=== PATIENT | female | born 1940 | race Caucasian/White ===

== ENCOUNTER 2023-01-08 13:54 | Inpatient (IN) | payer MEDICARE ==
--- NOTE | 2023-01-08 14:05 | ED ---
Fall HPI - General Source: family, RN notes reviewed Mode of arrival: wheelchair Limitations: no limitations - History of Present Illness MD Complaint: fall <Ce Justice - Last Filed: 01/08/23 14:02> <Dashawn Li - Last Filed: 01/08/23 18:45> - General Chief Complaint: Fall Stated Complaint: Fall,no Thinners/ GI Bleed Time Seen by Provider: 01/08/23 14:04 - History of Present Illness Initial Comments: This is an 82 year old female who presents to the emergency department for a fall. She fell yesterday and injured her right great toe. Her friend states that she has since been catching it on things. Additionally, she had diarrhea yesterday which may have had blood in it. She has also had increasing confusion and weakness over the last couple of weeks. Patient's friend provides all information, patient states that she has no idea why she is here. (Ce Justice) - Related Data Allergies Allergy/AdvReac Type Severity Reaction Status Date / Time codeine Allergy Rash/Hives Verified 01/08/23 14:07 Review of Systems ROS Other: All systems not noted in ROS Statement are negative. <Ce Justice - Last Filed: 01/08/23 14:02> ROS Other: All systems not noted in ROS Statement are negative. <Dashawn Li - Last Filed: 01/08/23 18:45> ROS Statement: Those systems with pertinent positive or pertinent negative responses have been documented in the HPI. General Exam <Ce Justice - Last Filed: 01/08/23 14:02> General appearance: alert, in no apparent distress Head exam: Present: atraumatic, normocephalic Eye exam: Present: normal appearance, PERRL Neck exam: Present: normal inspection. Absent: tenderness, meningismus Respiratory exam: Present: normal lung sounds bilaterally. Absent: respiratory distress, wheezes Cardiovascular Exam: Present: regular rate, normal rhythm GI/Abdominal exam: Present: soft. Absent: distended, tenderness, guarding Extremities exam: Present: other (Tenderness in the right calf and foot. Decreased range of motion at the ankle. There is no distal pulses present on the right. She has a 2+ femoral pulses.) Neurological exam: Present: alert. Absent: motor sensory deficit Skin exam: Present: warm, dry, intact <GurwinderkalyantaliaDashawn N - Last Filed: 01/08/23 18:45> - General Exam Comments Initial Comments: Visual Physical Exam Vital signs reviewed General: Well-appearing, nontoxic, no acute distress. Head: Normocephalic, atraumatic Eyes: PERRLA, EOMI ENT: Airway patent Chest: Nonlabored breathing Skin: No visual rash, normal skin tone Neuro: Alert and oriented 3 Musculoskeletal: No gross abnormalities I performed the QuickNote portion of this chart. Signed Ce Justice PA-C. (Ce Justice) Course Vital Signs 01/08/23 01/08/23 01/08/23 14:03 17:26 17:40 Temperature 98.6 F Pulse Rate 110 H 94 87 Respiratory 20 18 18 Rate Blood Pressure 100/59 137/76 137/76 O2 Sat by Pulse 99 98 99 Oximetry 01/08/23 01/08/23 18:00 18:10 Temperature Pulse Rate 89 87 Respiratory 19 Rate Blood Pressure 149/80 159/70 O2 Sat by Pulse 99 Oximetry Medical Decision Making - Lab Data Result diagrams: 01/08/23 17:33 01/08/23 17:33 <GurwinderstevenDashawn N - Last Filed: 01/08/23 18:45> - Medical Decision Making Was pt. sent in by a medical professional or institution (EDUARD Blake, NIGHT AUDITOR, urgent care, hospital, or alf...) When possible be specific @ -No Did you speak to anyone other than the patient for history (EMS, parent, family, police, friend...)? What history was obtained from this source @ -Patient's friend who is at bedside Did you review nursing and triage notes (agree or disagree)? Why? @ -I reviewed and agree with nursing and triage notes Were old charts reviewed (outside hosp., previous admission, EMS record, old EKG, old radiological studies, urgent care reports/EKG's, alf records)? Report findings @ -No old charts were reviewed Differential Diagnosis (chest pain, altered mental status, abdominal pain women, abdominal pain men, vaginal bleeding, weakness, fever, dyspnea, syncope, headache, dizziness, GI bleed, back pain, seizure, CVA, palpatations, mental health, musculoskeletal)? @ -[Differential Chest Pain: Stable Angina, Unstable Angina, STEMI, NSTEMI Aortic Dissection, Pneumothorax, Musculoskeletal, Esophageal Spasm GERD, Cholecystitis, Pancreatitis, Zoster, this is not meant to be an all-inclusive list. EKG interpreted by me (3pts min.). @ Sinus rhythm ST segment elevation in the anterior leads with reciprocal ST segment depression inferior. Ventricular rate of 87, MT interval 185, QRS duration 89, QTC 391. X-rays interpreted by me (1pt min.). @ -[Chest x-ray showing no acute findings, hyperinflation CT interpreted by me (1pt min.). @ CT brain negative for intracranial hemorrhage or mass effect U/S interpreted by me (1pt. min.). @ -None done What testing was considered but not performed or refused? (CT, X-rays, U/S, labs)? Why? @ -None What meds were considered but not given or refused? Why? @ -None Did you discuss the management of the patient with other professionals (professionals i.e. , PA, NIGHT AUDITOR, lab, RT, psych nurse, clinical social worker, first grade teacher, teacher, commanding officer garage, case operator)? Give summary @ Case discussed with Dr. Ruffin at the time the EKG was obtained 1746. This ramos s meet ST segment elevation in the [facility] was activated. Case discussed with Dr. Guerrero who will admit Was smoking cessation discussed for >3mins.? @ -No Was critical care preformed (if so, how long)? @ -Yes, 35 minutes Were there social determinants of health that impacted care today? How? (Homelessness, low income, unemployed, alcoholism, drug addiction, transportation, low edu. Level, literacy, decrease access to med. care, custodial, rehab)? @ -No Was there de-escalation of care discussed even if they declined (Discuss DNR or withdrawal of care, Hospice)? DNR status @ -No What co-morbidities impacted this encounter? (DM, HTN, Smoking, COPD, CAD, Cancer, CVA, ARF, Chemo, Hep., AIDS, mental health diagnosis, sleep apnea, morbid obesity)? @ -[Dementia, peripheral vascular disease Was patient admitted / discharged? Hospital course, mention meds given and route, prescriptions, significant lab abnormalities, going to OR and other pertinent info. @ -82-year-old female presented initially with a fall and complaining of diarrhea which occurred yesterday as well as right foot pain. Patient has stable vitals and was in the waiting room for an extended period time proximally 4 hours. Upon presenting to a room and IV was established and EKG was obtained in this patient without chest pain without dyspnea without vomiting. EKG shows ST segment elevation consistent with acute CT. I discussed case with Dr. Ruffin and the [facility] was activated. Additionally the patient has a cold right lower extremity with complaints of right foot pain. There is delayed cap refill and no palpable pulses distally. Patient had a fall yesterday therefore head CT was performed which is negative for intracranial hemorrhage. Aspirin was administered and the patient was taken immediately to the [facility] for both coronary angiogram as well as peripheral angiogram. Undiagnosed new problem with uncertain prognosis? @ -No Drug Therapy requiring intensive monitoring for toxicity (Heparin, Nitro, Insulin, Cardizem)? @ -No Were any procedures done? @ -No Diagnosis/symptom? @ -[STEMI, ischemic leg Acute, or Chronic, or Acute on Chronic? @ -Acute Uncomplicated (without systemic symptoms) or Complicated (systemic symptoms)? @ Extremely complicated Side effects of treatment? @ -No Exacerbation, Progression, or Severe Exacerbation? @ -No Poses a threat to life or bodily function? How? (Chest pain, USA, CT, pneumonia, PE, COPD, DKA, ARF, appy, cholecystitis, CVA, Diverticulitis, Homicidal, Suicidal, threat to staff... and all critical care pts) @ -[Yes, ACS, ischemic limb (Dashawn Li) - Lab Data Lab Results 01/08/23 01/08/23 01/08/23 Range/Units 17:33 17:33 17:33 WBC 17.3 H (3.8-10.6) k/uL RBC 3.52 L (3.80-5.40) m/uL Hgb 11.2 L (11.4-16.0) gm/dL Hct 33.5 L (34.0-46.0) % MCV 95.2 (80.0-100.0) fL MCH 31.9 (25.0-35.0) pg MCHC 33.5 (31.0-37.0) g/dL RDW 13.8 (11.5-15.5) % Plt Count 476 H (150-450) k/uL MPV 8.9 Neutrophils % 91 % Lymphocytes % 5 % Monocytes % 2 % Eosinophils % 1 % Basophils % 0 % Neutrophils # 15.8 H (1.3-7.7) k/uL Lymphocytes # 0.9 L (1.0-4.8) k/uL Monocytes # 0.4 (0-1.0) k/uL Eosinophils # 0.1 (0-0.7) k/uL Basophils # 0.0 (0-0.2) k/uL PT 10.9 (9.0-12.0) sec INR 1.0 (<1.2) APTT 26.1 (22.0-30.0) sec Sodium 136 L (137-145) mmol/L Potassium 4.8 (3.5-5.1) mmol/L Chloride 100 (98-107) mmol/L Carbon Dioxide 20 L (22-30) mmol/L Anion Gap 16 mmol/L BUN 68 H (7-17) mg/dL Creatinine 1.21 H (0.52-1.04) mg/dL Est GFR (CKD-EPI)AfAm 48 (>60 ml/min/1.73 sqM) Est GFR (CKD-EPI)NonAf 41 (>60 ml/min/1.73 sqM) Glucose 121 H (74-99) mg/dL Plasma Lactic Acid Zen[place] (0.7-2.0) mmol/L Calcium 9.6 (8.4-10.2) mg/dL Total Bilirubin 0.6 (0.2-1.3) mg/dL AST 359 H (14-36) U/L ALT 165 H (4-34) U/L Alkaline Phosphatase 159 H (38-126) U/L Troponin I (0.000-0.034) ng/mL Total Protein 7.0 (6.3-8.2) g/dL Albumin 3.6 (3.5-5.0) g/dL 01/08/23 01/08/23 Range/Units 17:33 17:33 WBC (3.8-10.6) k/uL RBC (3.80-5.40) m/uL Hgb (11.4-16.0) gm/dL Hct (34.0-46.0) % MCV (80.0-100.0) fL MCH (25.0-35.0) pg MCHC (31.0-37.0) g/dL RDW (11.5-15.5) % Plt Count (150-450) k/uL MPV Neutrophils % % Lymphocytes % % Monocytes % % Eosinophils % % Basophils % % Neutrophils # (1.3-7.7) k/uL Lymphocytes # (1.0-4.8) k/uL Monocytes # (0-1.0) k/uL Eosinophils # (0-0.7) k/uL Basophils # (0-0.2) k/uL PT (9.0-12.0) sec INR (<1.2) APTT (22.0-30.0) sec Sodium (137-145) mmol/L Potassium (3.5-5.1) mmol/L Chloride (98-107) mmol/L Carbon Dioxide (22-30) mmol/L Anion Gap mmol/L BUN (7-17) mg/dL Creatinine (0.52-1.04) mg/dL Est GFR (CKD-EPI)AfAm (>60 ml/min/1.73 sqM) Est GFR (CKD-EPI)NonAf (>60 ml/min/1.73 sqM) Glucose (74-99) mg/dL Plasma Lactic Acid Zen[place] 1.3 (0.7-2.0) mmol/L Calcium (8.4-10.2) mg/dL Total Bilirubin (0.2-1.3) mg/dL AST (14-36) U/L ALT (4-34) U/L Alkaline Phosphatase (38-126) U/L Troponin I 0.821 H* (0.000-0.034) ng/mL Total Protein (6.3-8.2) g/dL Albumin (3.5-5.0) g/dL Critical Care Time Critical Care Time: Yes Total Critical Care Time: 35 <Dashawn Li - Last Filed: 01/08/23 18:45> Disposition <Ce Justice - Last Filed: 01/08/23 14:02> Is patient prescribed a controlled substance at d/c from ED?: No Time of Disposition: 18:20 <Dashawn Li - Last Filed: 01/08/23 18:45> Clinical Impression: STEMI (ST elevation myocardial infarction), Ischemic leg Disposition: ADMITTED IP TO THIS HOSP Condition: Serious
--- NOTE | 2023-01-08 14:52 | XR ---
Right great toe HISTORY: Pain findings trauma COMPARISON: None TECHNIQUE: 3 views the right big toe were obtained. FINDINGS: There is no fracture, dislocation, intraosseous, intra-articular or soft tissue abnormality. There is mild to moderate osteopenia. IMPRESSION: No evidence of acute trauma.
[2023-01-08] MEDS ORDERED: SODIUM CHLORIDE 0.9% 500 ML 500 ML IV STA (17:28)
[2023-01-08] MEDS ORDERED: ASPIRIN 325 MG TAB PO STA (17:53)
[2023-01-08 18:03] LABS: Basophils % (A) 0 %; Eosinophils # (A) 0.1 k/uL (0-0.7); Eosinophils % (A) 1 %; HCT 33.5 % (34.0-46.0); HGB 11.2 gm/dL (11.4-16.0); Lymphocytes # (A) 0.9 k/uL (1.0-4.8); Lymphocytes % (A) 5 %; MCH 31.9 pg (25.0-35.0); MCHC 33.5 g/dL (31.0-37.0); MCV 95.2 fL (80.0-100.0); Mean Platelet Volume 8.9; Monocytes # (A) 0.4 k/uL (0-1.0); Monocytes % (A) 2 %; Neutrophils # (A) 15.8 k/uL (1.3-7.7); Neutrophils % (A) 91 %; Platelet Count 476 k/uL (150-450); RBC 3.52 m/uL (3.80-5.40); RDW 13.8 % (11.5-15.5); WBC 17.3 k/uL (3.8-10.6)
[2023-01-08 18:05] LABS: Partial Thromboplastin Time 26.1 sec (22.0-30.0); Prothrombin Time 10.9 sec (9.0-12.0)
[2023-01-08] MEDS ORDERED: NALOXONE 0.4 MG/ML 1 ML VIAL IV PRN (18:05)
--- NOTE | 2023-01-08 18:06 | XR ---
EXAMINATION TYPE: XR chest 1V portable DATE OF EXAM: 01/08/2023 6:00 PM CLINICAL INDICATION:Female, 82 years old with history of Pain; COMPARISON: Chest radiographs from TECHNIQUE: XR chest 1V portable Frontal view of the chest. FINDINGS: Lungs/Pleura: There is flattening of the diaphragm with increased lucency of the lungs. No evidence o f pneumothorax, pleural effusion or focal consolidation. Pulmonary vascularity: Unremarkable. Heart/mediastinum: Cardiomediastinal silhouette is unremarkable. Musculoskeletal: No acute osseous pathology. IMPRESSION: 1. No acute cardiopulmonary disease process. 2. COPD changes.
[2023-01-08 18:07] LABS: ALT 165 U/L (4-34); AST 359 U/L (14-36); African American GFR (CKD) 48 (>60 ml/min/1.73 sqM); Albumin 3.6 g/dL (3.5-5.0); Alkaline Phosphatase 159 U/L (38-126); Anion Gap 16 mmol/L; Blood Urea Nitrogen 68 mg/dL (7-17); Calcium 9.6 mg/dL (8.4-10.2); Carbon Dioxide 20 mmol/L (22-30); Chloride 100 mmol/L (98-107); Glucose 121 mg/dL (74-99); Non-African American GFR(CKD) 41 (>60 ml/min/1.73 sqM); Potassium 4.8 mmol/L (3.5-5.1); Sodium 136 mmol/L (137-145); Total Bilirubin 0.6 mg/dL (0.2-1.3)
[2023-01-08] MEDS: SODIUM CHLORIDE 0.9% 1,000 ML IV SCH (18:07)
--- NOTE | 2023-01-08 18:22 | CT ---
EXAMINATION TYPE: CT brain cspine wo con CT DLP: 1254.9 mGycm, Automated exposure control for dose reduction was used. DATE OF EXAM: 01/08/2023 6:13 PM COMPARISON: None. CLINICAL INDICATION:Female, 82 years old with history of falls; Pt fall yesterday, increased confusio n over last 3 weeks. TECHNIQUE: Brain: Multiple axial CT images of the brain were obtained without IV contrast. Cspine: Axial CT images from the skull base to the inferior aspect of T2 we obtained without intraven ous contrast. Coronal and sagittal reformatted images were also reviewed. FINDINGS: Brain: Extra-axial spaces: No abnormal extra-axial fluid collections. Ventricular system: Within normal limits Cerebral parenchyma: No acute intraparenchymal hemorrhage or mass effect. The [place]-white junction is well differentiated. Cerebellum: Unremarkable. Mass effect: No evidence of midline shift. Intracranial vasculature: unremarkable Soft tissues: Normal. Calvarium/osseous structures: No depressed skull fracture. Paranasal sinuses and mastoid air cells: Clear. Visualized orbits: Bilateral aphakia Cervical spine: Fracture: None. Osseous structures: Multilevel degenerative disc disease changes with endplate spurring and disc oste ophyte complex's. Vertebral alignment: Within normal limits. Spinal canal/Neural Foramina: No evidence of significant spinal canal narrowing. No evidence for sign ificant neural foraminal stenosis. Neck soft tissues: Prevertebral soft tissues are within normal limits. Other: The airway is patent. The lung apices are clear. IMPRESSION: 1. No acute intracranial process. 2. No evidence of cervical spine fracture. 3. Mild multilevel degenerative disc disease.
[2023-01-08] MEDS ORDERED: LIDOCAINE 1% INJ 10MG/ML (20 ML MDV) ONE ×2 (18:26→18:47)
[2023-01-08] MEDS ORDERED: IV FLUID CONTINUATION 1,000 ML IV ONE (18:33)
[2023-01-08] MEDS ORDERED: fentaNYL (PF) 50 MCG/ML 2 ML AMP IVP ONE ×2 (18:35→18:50)
[2023-01-08] MEDS ORDERED: LIDOCAINE 1% INJ 10MG/ML (20 ML MDV) SQ ONE ×2 (18:36→18:50)
[2023-01-08] MEDS ORDERED: fentaNYL (PF) 50 MCG/ML 2 ML AMP ONE (18:37)
[2023-01-08] MEDS ORDERED: VERAPAMIL SYRINGE (5 MG/10 ML) INTRAARTER ONE (18:53)
[2023-01-08] MEDS ORDERED: VERAPAMIL 2.5 MG/ML 2 ML AMP ONE (18:53)
[2023-01-08] MEDS ORDERED: IOPAMIDOL-370 100ML BTL INJ ONE (19:03)
--- NOTE | 2023-01-08 19:19 | P.CRDCN ---
History of Present Illness Consult date: 01/08/23 Chief complaint: Change in mental status/possible syncope History of present illness: This is an 82-year-old female patient with a past medical history significant for history of lower extremities PAD as well as hypertension and dyslipidemia. The patient is somewhat poor historian and she does have slight change in mental status and disorientation. We consulted to see the patient for further evaluation off abnormal EKG showing an anterior ST elevation myocardial infarction and the ST segment changes are massive. The patient presented to the emergency department after she fell with a questionable syncope. She injured her right great toe. She was brought by her boyfriend to the emergency department where workup was performed including computed tomography scan of the brain which showed no acute abnormalities. Subsequently she underwent an EKG which showed significant ST segment elevation anteriorly concerning for STEMI. Also the patient was found to have cold right foot. We don't know the duration of her foot coolness. The patient was taken emergently to the cardiac label drier where she underwent an angiogram from the right radial approach and that showed mild nonobstructive coronary artery disease. I did not performed left heart catheterization on her because I was concerned about any thrombus in the LV could be responsible for her cold foods as well as abnormal EKG with possible embolization which dissolved. Initially I accessed the left common femoral artery and its appeared that the patient underwent in the past aorta bifemoral bypass. The angiogram revealed a patent left common femoral artery but it seems that the wire was in the bypass to the left common femoral artery. She noted to have stenting either in her [place] left iliac arteries or in the left iliac's vein. It's hard to tell at this point. The procedure was performed from the right radial approach and the patient tolerated the procedure very well. The cath revealed only mild nonobstructive coronary artery disease. The patient will be transferred to the intensive care unit. I'm going to obtain CTA of the chest and abdomen and lower extremities just to rule out any evidence off dissection and also to assess the lower extremities arterial system. Vascular surgical consult we will be also obtained. Beside that the patient underwent a blood work showed stable hemoglobin was troponin is a slightly elevated and abnormal renal function and normal electrolytes. The liver function tests are elevated. Please note that the patient is alcoholic The examination is remarkable for stable vital signs beside elevated blood pressure consistent with a stage II hypertension and also distant heart sounds with clear breathing sounds bilaterally. Assessment Abnormal EKG concerning for ST elevation myocardial infarction. Mild nonobstructive coronary artery disease Cold right foot PAD with prior revascularization Change in mental status Significant history of alcohol abuse Plan Heart catheterization was performed and showed mild CAD only Performing CTA of the chest and abdomen and lower extremities to rule out dissection and assess the vascular structure of the lower extremities in the light of cold right foot Transferred to the intensive care unit Obtain an echocardiogram was Doppler Obtain a vascular surgical consult Follow-up with the patient Past Medical History Past Medical History: Cancer, Dementia, Hypertension Past Surgical History: No Surgical Hx Reported Medications and Allergies Home Medications Medication Instructions Recorded Confirmed Type Acetaminophen Tab [Tylenol Tab] 500 mg PO Q6H PRN 01/08/23 01/08/23 History lisinopriL 40 mg PO DAILY 01/08/23 01/08/23 History Allergies Allergy/AdvReac Type Severity Reaction Status Date / Time codeine Allergy Itching Verified 01/08/23 18:53 Physical Exam Vitals: Vital Signs Temp Pulse Resp BP Pulse Ox 01/08/23 18:20 99 18 159/70 01/08/23 18:10 87 159/70 99 01/08/23 18:00 89 19 149/80 01/08/23 17:40 87 18 137/76 99 01/08/23 17:26 94 18 137/76 98 01/08/23 14:03 98.6 F 110 H 20 100/59 99 Intake and Output 01/08/23 01/08/23 01/08/23 06:59 14:59 22:59 Intake Total 150 Balance 150 Intake: IV 150 Other: Weight 56.699 kg Results 01/08/23 17:33 01/08/23 17:33 Cardiac Enzymes 01/08/23 01/08/23 Range/Units 17:33 17:33 AST 359 H (14-36) U/L Troponin I 0.821 H* (0.000-0.034) ng/mL Coagulation 01/08/23 Range/Units 17:33 PT 10.9 (9.0-12.0) sec APTT 26.1 (22.0-30.0) sec CBC 01/08/23 Range/Units 17:33 WBC 17.3 H (3.8-10.6) k/uL RBC 3.52 L (3.80-5.40) m/uL Hgb 11.2 L (11.4-16.0) gm/dL Hct 33.5 L (34.0-46.0) % Plt Count 476 H (150-450) k/uL Comprehensive Metabolic Panel 01/08/23 Range/Units 17:33 Sodium 136 L (137-145) mmol/L Potassium 4.8 (3.5-5.1) mmol/L Chloride 100 (98-107) mmol/L Carbon Dioxide 20 L (22-30) mmol/L BUN 68 H (7-17) mg/dL Creatinine 1.21 H (0.52-1.04) mg/dL Glucose 121 H (74-99) mg/dL Calcium 9.6 (8.4-10.2) mg/dL AST 359 H (14-36) U/L ALT 165 H (4-34) U/L Alkaline Phosphatase 159 H (38-126) U/L Total Protein 7.0 (6.3-8.2) g/dL Albumin 3.6 (3.5-5.0) g/dL Current Medications Generic Name Dose Route Start Last Admin Trade Name Freq PRN Reason Stop Dose Admin Sodium Chloride 1,000 mls @ 75 mls/hr 01/08/23 18:00 01/08/23 18:07 Saline 0.9% IV 75 mls/hr .[id number] YAMIL Administration Naloxone HCl 0.2 mg 01/08/23 18:05 Naloxone 0.4 Mg/Ml 1 Ml Vial IV Q2M PRN Opioid Reversal Intake and Output 01/08/23 01/08/23 01/08/23 06:59 14:59 22:59 Intake Total 150 Balance 150 Intake: IV 150 Other: Weight 56.699 kg Patient Weight 01/09/23 06:59 Weight 56.699 kg 01/08/23 17:33 01/08/23 17:33
--- NOTE | 2023-01-08 19:28 | P.PCN ---
Date of Procedure: 01/08/23 Operative Findings: CARDIAC CATHETERIZATION PERFORMING PHYSICIAN: Terry Ruffin MD, RPVI PROCEDURE PERFORMED: 1. Selective right and left coronary angiogram 2. Left common femoral artery angiogram 3. Ultrasound-guided access of the right radial artery INDICATION: Abnormal EKG concerning for ST elevation myocardial infarction COMPLICATION: None APPROACH: Right radial artery LEVEL OF SEDATION: Moderate with a sedation length of 30 minutes PROCEDURE DESCRIPTION: After obtaining an informed consent, the patient was brought to cardiac mill laborer. Initially I attempted accessing the left common femoral artery but the wire would not pass the distal aorta. For that reason I aborted the left femoral approach and I decided to go from the right radial artery. Local anesthesia was performed using lidocaine subcutaneously. The right radial artery was cannulated using Seldinger technique, the guidewire passed easily, following that we advanced a 5-Kazakh sheath dilator assembly, the wire and dilator were removed and sheath was flushed. Following that, 2 mg of verapamil along with 5000 unit heparin were given. Selective right and left coronary angiogram using a 6-Kazakh JR4 and JL 3.5 catheters. . The procedure was completed there was no complication. SELECTIVE CORONARY ANGIOGRAM: The right coronary artery: Large-caliber vessel and a dominant vessel. The RCA is calcified was mild disease only. Dad disease is in the midportion. The RCA bifurcates into PDA and PLV branches. The PDA branch has mild disease only and the PLV branch appears to be angiographically normal. Left main: It is angiographically normal. Bifurcates into an LCx and LAD The left circumflex: The ostial LCx has mild disease only. The proximal LCx is angiographically normal and gives rise into an OM1 which appeared to be angiographically normal. The mid LCx is angiographically normal as well and gives rises into an OM 2 which seems to be normal. The LCx distally appears to be normal. The left anterior descending artery: The proximal LAD appeared to be angiographically normal. Gives rises into a diagonal branch which has mild disease only. The mid and distal LAD appeared to be angiographically normal CONCLUSION: 1. Mild nonobstructive coronary artery disease POSTPROCEDURE MANAGEMENT: Medical treatment
[2023-01-08 19:36] LABS: Glucose,Whole Blood 82 mg/dL (70-110)
--- NOTE | 2023-01-08 21:32 | CT ---
EXAMINATION TYPE: CT angio tho/abd W Run Off DATE OF EXAM: 01/08/2023 COMPARISON: None. HISTORY: Rule out dissection. Pt was called a stemi earlier, hence why contrast in system. CT DLP: 1679.6 mGycm. Automated Exposure Control for Dose Reduction was Utilized. CONTRAST: CTA scan of the thorax, abdomen and pelvis with bilateral lower extremity runoff is performed without and with IV Contrast, patient injected with 80 mL of Isovue 370. Three-D reconstructed images are cr eated on a independent workstation and reviewed. FINDINGS: Vascular: Noncontrast images show no suspicious hyperdense material to suggest intramural hematoma. M ild peripheral calcified plaque in the aortic arch. More moderate peripheral plaque in the descending thoracic aorta. There is more severe predominantly calcified but mixed plaque in the abdominal aorta . Calcified plaque is noted to lower sensitivity for evaluation for grading degree of stenosis. Sever e calcified plaque at origin of the celiac artery with likely significant stenosis. Severe calcified plaque and then complete occlusion of the SMA is noted. Patent bilateral renal arteries. Significant stenosis in the infrarenal abdominal aorta. Occluded RAFFY is noted. No linear hypodensity to suggest d issection. There are bypass grafts which are occluded in the bilateral pelvis. There is significant stenosis in the right common iliac artery due to noncalcified plaque axial image 35. There is patent stent in the left proximal common iliac artery. No significant stenosis in the pelvis. Moderate calcified plaque in the right groin into the right common and superficial femoral arteries. Moderate to severe peripheral calcified plaque along the official femoral artery without significant stenosis. Significant stenosis in the popliteal artery the level of the knee joint. Clinical clips left groin region with significant stenosis at this level identified. Severe periphera l calcified plaque in the distal left superficial femoral artery without significant stenosis. Modera te to severe plaque extends into the popliteal artery. There is suboptimal bolus opacification below the knee. There appears to be severe calcified small ve ssel plaque with asymmetric poor flow in the right lower extremity versus left lower extremity. Subop timal evaluation below the knees is noted. LUNGS: Mild to moderate biapical pleural/parenchymal scarring. No pleural effusion or pneumothorax. MEDIASTINUM: There are no greater than 1 cm hilar or mediastinal lymph nodes. No cardiomegaly or pe ricardial effusion is seen. LIVER/GB: The gallbladder has distended margins. PANCREAS: No significant abnormality is seen. SPLEEN: No significant abnormality is seen. ADRENALS: No significant abnormality is seen. KIDNEYS: No significant abnormality is seen. BOWEL: No significant abnormality is seen. GENITAL ORGANS: Uterus is surgically absent. LYMPH NODES: No greater than 1cm abdominal or pelvic lymph nodes are appreciated. OSSEOUS STRUCTURES: Vacuum disc phenomenon with mild to moderate disc space narrowing at L4-L5 level. Lohu-sp-kadblyxi narrowing of both hip joints. Lower extremities: Tricompartment degenerative changes of both knees are present.. OTHER: No significant additional abnormality is seen. IMPRESSION: 1. No aortic dissection or aneurysm. 2. Severe coronary artery disease and peripheral arterial disease with occluded bilateral pelvic bypa ss grafts. 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 Significant focal stenosis in the infrarenal abdominal aorta is noted. There i s severe calcified plaque in the bilateral lower extremities greatest distally. Suboptimal evaluation below the knees on current study. Asymmetric poor flow to the right distal lower extremity is noted. Correlate clinically. Consider catheter angiogram follow-up to further evaluate.
[2023-01-08] MEDS ORDERED: MORPHINE SULFATE 2 MG/ML SYRINGE IVP STA (22:13)
[2023-01-09 00:01] LABS: Glucose,Whole Blood 89 mg/dL (70-110)
--- NOTE | 2023-01-09 00:21 | P.HPIM ---
History of Present Illness H&P Date: 01/08/23 Patient is a 82-year-old female with a PMH of dementia, peripheral arterial disease, hypertension, and hyperlipidemia who presented to the emergency room for falls and confusion. The patient was confused at the time of interview and thereby the history was supplemented from the chart as attempts to contact the patient's boyfriend were unsuccessful. 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 The patient had reportedly had a fall yesterday where she injured her right great toe. The patient had also been increasingly confused and weak over the last few weeks and had episodes of nonbloody d iarrhea. The son does report that the patient has a history of dementia. Patient herself does not know why she is at the hospital and states that she came in because her friend Jeramie needed to come in. She reports right leg pain, particularly in the right great toe at the time of interview. Denied pain elsewhere. Denied experiencing chest discomfort, shortness of breath, palpitations, nausea, vomiting. In the emergency room, head and cervical spine CT was unremarkable. An EKG revealed diffuse ST segment elevations at 87 bpm. Patient was also noted to have a cold and pulseless right foot. Case was discussed with cardiology and the patient was taken to the laboratory chief where mild nonobstructive coronary artery disease was noted. The patient was noted to have previously had an aortob ifemoral bypass. A CT angiogram with runoff was ordered and vascular surgery was consulted. CT angiogram revealed severe peripheral arterial disease with occluded bilateral pelvic bypass grafts, occluded SMA shortly after groin, with significant stenosis in the abdominal aorta and severe calcified plaque of bilateral lower extremities greatest distally. There was also noted to be an asymmetrically poor flow to the right distal lower extremity. Laboratory evaluation was remarkable for troponin 0.821, ALT was 65, AST 359, alk phos 159, BUN 68, creatinine 1.21, WBC 17.3, hemoglobin 11.2, and platelets 476. ED case was discussed with documentation reviewed and case discussed with ED provider. Review of systems: Pertinent positives and negatives as discussed in HPI, a complete review of systems was performed and all other systems are negative. Physical examination: Vital signs reviewed General: non toxic, no distress, appears at stated age, normal weight Derm: no unusual rashes/lesions, warm Head: atraumatic, normocephalic, symmetric Eyes: EOMI, no lid lag, anicteric sclera, pupils equal round reactive to light ENT: Nose and ears atraumatic Neck: No cervical lymphadenopathy, trachea midline, supple Mouth: no lip lesion, mucus membranes moist Cardiovascular: S1S2 reg, no murmur, no edema, absent dorsalis pedis pulse of right foot, left dorsalis pedis and bilateral posterior tibial pulses palpated, right foot cold up to ankle Lungs: CTA bilateral, no rhonchi, no rales, no accessory muscle use Abdominal: soft, nontender to palpation, no guarding Ext: muscle strength 5 out of 5 in all 4 extremities grossly, no gross muscle atrophy, no contractures Neuro: CN II-XI grossly intact, no gross focal neuro deficits Psych: Alert, oriented only to self, pleasant and answering questions appropriately Assessment: Cold and pulseless right foot with history of severe PAD status post aortobifemoral bypass Elevated troponin, heart cath showing mild CAD only Kidney injury, acute versus chronic Abnormal LFTs Leukocytosis, suspect due to acute stressor, no signs of active infection at this time Chronic conditions: Hypertension, hyperlipidemia, dementia Imaging: In the emergency room, head and cervical spine CT was unremarkable. An EKG revealed diffuse ST segment elevations at 87 bpm. Patient was also noted to have a cold and pulseless right foot. Case was discussed with cardiology and the patient was taken to the laboratory chief where mild nonobstructive coronary artery disease was noted. The patient was noted to have previously had an aortobifemoral bypass. A CT angiogram with runoff was ordered and vascular surgery was consulted. CT angiogram revealed severe peripheral arterial disease with occluded bilateral pelvic bypass grafts, occluded SMA shortly after groin, with significant stenosis in the abdominal aorta and severe calcified plaque of bilateral lower extremities greatest distally. There was also noted to be an asymmetrically poor flow to the right distal lower extremity. Data Review: Laboratory evaluation was remarkable for troponin 0.821, ALT was 65, AST 359, alk phos 159, BUN 68, creatinine 1.21, WBC 17.3, hemoglobin 11.2, and platelets 476. Plan: Vascular surgery aware of patient and recommended holding heparin at this time Continue with IV fluids with normal saline 75 mL an hour Obtain full home medication list and reconcile according Cardiac monitoring Monitor CBC and CMP DVT prophylaxis: Heparin subcu The patient is admitted with an anticipated greater than 2 midnight stay for evaluation of cold R foot CODE STATUS: Full Code Discussed with: Patient Anticipated discharge place: Home Past Medical History Past Medical History: Cancer, Dementia, Hypertension Additional Past Medical History / Comment(s): Per pt son pt had stomach cancer over 20 years ago and has had extensive vascular surgery done at [facility] in [place]. History of Any Multi-Drug Resistant Organisms: Unobtainable Past Surgical History: No Surgical Hx Reported Additional Past Surgical History / Comment(s): Bi-lateral pelvic by-pass grafts. Smoking Status: Current every day smoker Medications and Allergies Home Medications Medication Instructions Recorded Confirmed Type Acetaminophen Tab [Tylenol Tab] 500 mg PO Q6H PRN 01/08/23 01/08/23 History lisinopriL 40 mg PO DAILY 01/08/23 01/08/23 History Allergies Allergy/AdvReac Type Severity Reaction Status Date / Time codeine Allergy Itching Verified 01/08/23 18:53 Physical Exam Vitals: Vital Signs Temp Pulse Pulse Resp BP Pulse Ox 01/08/23 23:00 81 3 L 154/70 96 01/08/23 22:50 86 11 L 154/70 96 01/08/23 22:40 85 18 154/70 91 L 01/08/23 22:30 86 11 L 151/91 88 L 01/08/23 22:20 85 23 151/91 96 01/08/23 22:10 80 18 151/91 97 01/08/23 22:00 78 15 173/72 98 01/08/23 21:50 78 8 L 173/72 93 L 01/08/23 21:40 81 9 L 173/72 97 01/08/23 21:30 81 27 H 175/59 94 L 01/08/23 21:20 81 11 L 175/59 01/08/23 21:10 84 13 175/59 01/08/23 20:30 134/74 01/08/23 20:20 79 50 H 134/74 01/08/23 20:10 81 12 134/74 91 L 01/08/23 20:00 83 85 15 145/68 94 L 01/08/23 19:50 79 26 H 145/68 01/08/23 19:40 82 9 L 88 L 01/08/23 18:20 99 18 159/70 01/08/23 18:10 87 159/70 99 01/08/23 18:00 89 19 149/80 01/08/23 17:40 87 18 137/76 99 01/08/23 17:26 94 18 137/76 98 01/08/23 14:03 98.6 F 110 H 20 100/59 99 Intake and Output 01/08/23 01/08/23 01/09/23 14:59 22:59 06:59 Intake Total 375 75 Balance 375 75 Intake: IV 150 Intake, IV Titration 225 75 Amount Sodium Chloride 0.9% 1, 225 75 000 ml @ 75 mls/hr IV . [id number] [facility] Rx#:[id number] Other: Weight 56.699 kg 56.699 kg Results CBC & Chem 7: 01/08/23 17:33 01/08/23 17:33 Labs: Abnormal Lab Results - Last 24 Hours (Table) 01/08/23 01/08/23 01/08/23 Range/Units 17:33 17:33 17:33 WBC 17.3 H (3.8-10.6) k/uL RBC 3.52 L (3.80-5.40) m/uL Hgb 11.2 L (11.4-16.0) gm/dL Hct 33.5 L (34.0-46.0) % Plt Count 476 H (150-450) k/uL Neutrophils # 15.8 H (1.3-7.7) k/uL Lymphocytes # 0.9 L (1.0-4.8) k/uL Sodium 136 L (137-145) mmol/L Carbon Dioxide 20 L (22-30) mmol/L BUN 68 H (7-17) mg/dL Creatinine 1.21 H (0.52-1.04) mg/dL Glucose 121 H (74-99) mg/dL AST 359 H (14-36) U/L ALT 165 H (4-34) U/L Alkaline Phosphatase 159 H (38-126) U/L Troponin I 0.821 H* (0.000-0.034) ng/mL Thrombosis Risk Factor Assmnt - Choose All That Apply Any of the Below Risk Factors Present?: Yes Each Factor Represents 1 point: Acute GA Each Risk Factor Represents 2 Points: Patient confined to bed Each Risk Factor Represents 3 Points: Age 75 years or older Other congenital or acquired thrombophilia - If yes, enter type in comment: No Thrombosis Risk Factor Assessment Total Risk Factor Score: 6 Thrombosis Risk Factor Assessment Level: High Risk
[2023-01-09] MEDS ORDERED: MORPHINE SULFATE 2 MG/ML SYRINGE IVP STA (01:39)
[2023-01-09 05:46] LABS: Appearance,Urine Clear (Clear); Bilirubin,Urine Negative (Negative); Blood,Urine Large (Negative); Color,Urine Yellow; Glucose,Urine (UA) Trace (Negative); Ketones,Urine 1+ (Negative); Leukocyte Esterase,Urine Negative (Negative); Mucus,Urine Rare /hpf; Nitrite,Urine Negative (Negative); PH, Urine 5.5 (5.0-8.0); Protein,Urine 1+ (Negative); RBC,Urine 3 /hpf (0-5); Squamous Epithelial Cell,Urine 9 /hpf (0-4); Urobilinogen,Urine <2.0 mg/dL (<2.0); WBC,Urine 2 /hpf (0-5)
[2023-01-09 05:47] LABS: Specific Gravity,Urine >1.050 (1.001-1.035)
[2023-01-09 06:01] LABS: HCT 33.3 % (34.0-46.0); HGB 10.6 gm/dL (11.4-16.0); MCH 30.8 pg (25.0-35.0); MCHC 31.9 g/dL (31.0-37.0); MCV 96.8 fL (80.0-100.0); Mean Platelet Volume 8.1; Platelet Count 373 k/uL (150-450); RBC 3.44 m/uL (3.80-5.40); RDW 13.8 % (11.5-15.5); WBC 13.7 k/uL (3.8-10.6)
[2023-01-09 06:16] LABS: ALT 158 U/L (4-34); AST 329 U/L (14-36); African American GFR (CKD) 79 (>60 ml/min/1.73 sqM); Albumin 2.9 g/dL (3.5-5.0); Alkaline Phosphatase 131 U/L (38-126); Anion Gap 11 mmol/L; Blood Urea Nitrogen 49 mg/dL (7-17); Calcium 8.6 mg/dL (8.4-10.2); Carbon Dioxide 23 mmol/L (22-30); Chloride 106 mmol/L (98-107); Non-African American GFR(CKD) 68 (>60 ml/min/1.73 sqM); Sodium 140 mmol/L (137-145); Total Bilirubin 0.4 mg/dL (0.2-1.3); Total Protein 5.8 g/dL (6.3-8.2)
[2023-01-09 06:17] LABS: Glucose 94 mg/dL (74-99)
[2023-01-09] MEDS ORDERED: HEPARIN SODIUM 1,000 UN/ML (10ML VL) IV PRN (07:56)
--- NOTE | 2023-01-09 07:59 | P.PN ---
Subjective Progress Note Date: 01/09/23 Patient is an 82-year-old female with known dementia, peripheral arterial disease, hypertension, and hyperlipidemia who initially presented to the emergency room for falls and confusion. At arrival to the emergency department she was tachycardic with a pulse of 110 the remainder of her vitals were normal. Laboratory analysis was remarkable for white blood cell count 17.3, hemoglobin 11.2, platelets 476, sodium 136, carbon dioxide 20, BUN 68, creatinine 1.21, glucose 121, AST 359, ALT 165, troponin 0.821. Toe x-ray shows no evidence of acute trauma. Chest x-ray shows no acute process. CT head and cervical spine showed no acute intracranial process no evidence of cervical spine fracture but mild multi degenerative disc disease. In the emergency department she was not complaining of chest pain but EKG revealed possible ST segment elevated myocardial infarction. She was also found to have a cold right extremity. She therefore was taken emergently to [facility]. She was found to have mild coronary artery disease. She was subsequently transferred to the ICU. Consult was placed for vascular surgery. 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 SHe develoepd A fib wtih RVR and was started on heparin and cmio gtt. Patient seen and examined at bedside. She is pleasantly confused. She denies chest pain, foot pain, nausea, or headache. Per nursing no family has been to bedside yet. Vital signs reviewed General: nontoxic, no distress, appears at stated age Cardiovascular: S1S2 reg, no murmur, , no appreciable dorsalis pedis pulses bilaterally Lungs: CTA bilateral, no rhonchi, no rales , no accessory muscle use Abdominal: soft, nontender to palpation, no guarding, no appreciable organomegaly Ext: no gross muscle atrophy, no edema b/l lower extremities, no contractures Neuro: CN II-XI grossly intact, no focal neuro deficits Psych: Alert, oriented to self , appropriate affect Assessment/Plan: Ischemic right lower extremity with history of severe peripheral arterial disease - d/w with Dr. Simental: check carotid dopper and LE artrial doppler these will help to determine approach to care - ASA 81 mg daily and lipior 40 mg daily - start heparin gtt Altered mentation with prior dx of dementia - await boyfriend to arrive to determine baseline - safe and supportive environment Elevated troponin, abnormla EKG A fib with RVR - heparin gtt, amio gtt -Patient was taken to the Ed Case Manager with only mild coronary artery disease - await further cardio recs - await further cardio recs - check echo Anemia Transaminitis - check liver US - hepatitis profile - follow CBC Urinalysis positive for large blood, only 3 RBCs noted: Rhabdo confirmed -Check stat [place]K: [place] [address] increase NS to 200 cc/hr Leukoctyosis, suspect reactive - repeat CBC in AM Chronic conditions: Hypertension, dyslipidemia, dementia Acute kidney injury, resolved Imaging: As per HPI Data Review: Labs reviewed today include CBC, basic metabolic profile, liver enzymes which were remarkable for white blood cell 13.7, hemoglobin 10.6, BUN 49, AST 329, ALT 158. Urinalysis reviewed which showed large blood but 3 RBCs. DVT prophylaxis: Heparin gtt Anticipated discharge date: Pending Clinical Course Anticipated discharge place: Pending Clinical Course This dictation was prepared using [employer] voice recognition software. Though every attempt is made to correct errors during dictation some may still exist. Objective - Vital Signs Vital signs: Vital Signs Temp 97.9 F 01/09/23 04:00 Pulse 89 01/09/23 07:00 Resp 18 01/09/23 07:00 BP 168/73 01/09/23 07:00 Pulse Ox 95 01/09/23 06:00 FiO2 Intake & Output 01/08/23 01/09/23 01/09/23 18:59 06:59 18:59 Intake Total 150 900 Output Total 850 Balance 150 50 Weight 56.699 kg 52.2 kg Intake: IV 150 Intake, IV Titration 900 Amount Sodium Chloride 0.9% 1, 900 000 ml @ 75 mls/hr IV . [id number] [facility] Rx#:[id number] Output: Urine 850 Other: Voiding Method Bedpan - Labs CBC & Chem 7: 01/09/23 05:45 01/09/23 05:45 Labs: Abnormal Lab Results - Last 24 Hours (Table) 01/08/23 01/08/23 01/08/23 Range/Units 17:33 17:33 17:33 WBC 17.3 H (3.8-10.6) k/uL RBC 3.52 L (3.80-5.40) m/uL Hgb 11.2 L (11.4-16.0) gm/dL Hct 33.5 L (34.0-46.0) % Plt Count 476 H (150-450) k/uL Neutrophils # 15.8 H (1.3-7.7) k/uL Lymphocytes # 0.9 L (1.0-4.8) k/uL Sodium 136 L (137-145) mmol/L Carbon Dioxide 20 L (22-30) mmol/L BUN 68 H (7-17) mg/dL Creatinine 1.21 H (0.52-1.04) mg/dL Glucose 121 H (74-99) mg/dL AST 359 H (14-36) U/L ALT 165 H (4-34) U/L Alkaline Phosphatase 159 H (38-126) U/L Troponin I 0.821 H* (0.000-0.034) ng/mL Total Protein (6.3-8.2) g/dL Albumin (3.5-5.0) g/dL Ur Specific [place] (1.001-1.035) Urine Protein (Negative) Urine Glucose (UA) (Negative) Urine Ketones (Negative) Urine Blood (Negative) Ur Squamous Epith Cells (0-4) /hpf Urine Mucus (None) /hpf 01/09/23 01/09/23 01/09/23 Range/Units 05:15 05:45 05:45 WBC 13.7 H (3.8-10.6) k/uL RBC 3.44 L (3.80-5.40) m/uL Hgb 10.6 L (11.4-16.0) gm/dL Hct 33.3 L (34.0-46.0) % Plt Count (150-450) k/uL Neutrophils # (1.3-7.7) k/uL Lymphocytes # (1.0-4.8) k/uL Sodium (137-145) mmol/L Carbon Dioxide (22-30) mmol/L BUN 49 H (7-17) mg/dL Creatinine (0.52-1.04) mg/dL Glucose (74-99) mg/dL AST 329 H (14-36) U/L ALT 158 H (4-34) U/L Alkaline Phosphatase 131 H (38-126) U/L Troponin I (0.000-0.034) ng/mL Total Protein 5.8 L (6.3-8.2) g/dL Albumin 2.9 L (3.5-5.0) g/dL Ur Specific [place] >1.050 H (1.001-1.035) Urine Protein 1+ H (Negative) Urine Glucose (UA) Trace H (Negative) Urine Ketones 1+ H (Negative) Urine Blood Large H (Negative) Ur Squamous Epith Cells 9 H (0-4) /hpf Urine Mucus Rare H (None) /hpf
[2023-01-09] MEDS ORDERED: HEPARIN SODIUM,PORCINE 5,000 UNIT/ML 1 ML VIAL SQ SCH (08:00)
[2023-01-09] MEDS ORDERED: HEPARIN SODIUM 1,000 UN/ML (10ML VL) IV ONE ×2 (08:15→08:20)
[2023-01-09] MEDS ORDERED: AMIODARONE 360 MG in DEXTROSE 5% IN WATER 200 ML IV ONE ×2 (08:20)
[2023-01-09] MEDS ORDERED: DEXTROSE 5% IN WATER 100 ML with AMIODARONE 150 MG IV ONE (08:20)
[2023-01-09] MEDS ORDERED: HEPARIN SOD,PORK IN 0.45% NACL 25,000 UNIT in 0.45% NACL 1 250ML.BAG IV SCH (08:30)
[2023-01-09] MEDS: HEPARIN SOD,PORK IN 0.45% NACL 25,000 UNIT in 0.45% NACL 1 250ML.BAG IV SCH (08:40)
[2023-01-09] MEDS: SODIUM CHLORIDE 0.9% 1,000 ML IV SCH ×2 (08:42→19:22)
--- NOTE | 2023-01-09 08:55 | US ---
EXAMINATION TYPE: US liver DATE OF EXAM: 01/09/2023 COMPARISON: CT 01/08/2023 CLINICAL INDICATION: Female, 82 years old with history of transaminitis; TECHNIQUE: Multiple sonographic images of the right upper quadrant are obtained. FINDINGS: EXAM MEASUREMENTS: Liver Length: 13.4 cm Gallbladder Wall: 0.13 cm CBD: 0.43 cm Right Kidney: 9.2 x 4.8 x 4.4 cm Pancreas: Pancreatic duct noted measuring 0.24cm Liver: Somewhat heterogeneous Gallbladder: Low level echoes noted along posterior aspect Evidence for sonographic Melvin's sign: No CBD: wnl Right Kidney: wnl IMPRESSION: 1. Mild heterogenous echotexture without focal lesion. No evidence for mass or cystic structure. 2. Biliary sludge.
[2023-01-09] MEDS ORDERED: ATORVASTATIN 40 MG TAB PO SCH (09:00)
--- NOTE | 2023-01-09 09:41 | US ---
EXAMINATION TYPE: US carotid duplex BILAT DATE OF EXAM: 01/09/2023 COMPARISON: NONE CLINICAL INDICATION: Female, 82 years old with history of stenosis; Stenosis TECHNIQUE: Carotid duplex ultrasound examination. Indirect Doppler criteria was utilized. FINDINGS: EXAM MEASUREMENTS: RIGHT: Peak Systolic Velocity (PSV) cm/sec ----- Right CCA: 53.1 ----- Right ICA: 83.4 ----- Right ECA: 175.2 ICA/CCA ratio: 1.6 RIGHT: End Diastole cm/sec ----- Right CCA: 11.3 ----- Right ICA: 25.2 ----- Right ECA: 3.7 LEFT: Peak Systolic Velocity (PSV) cm/sec ----- Left CCA: 97.7 ----- Left ICA: 107.3 ----- Left ECA: 93.1 ICA/CCA ratio: 1.1 LEFT: End Diastole cm/sec ----- Left CCA: 9.8 ----- Left ICA: 19.3 ----- Left ECA: 0.0 VERTEBRALS (direction of flow): Right Vertebral: Antegrade Left Vertebral: Antegrade Rhythm: Normal DOOR CAPTAIN NOTES: No significant stenosis seen, mild plaque IMPRESSION: Less than 50% stenosis of the bilateral carotid bifurcations. Criteria for Assigning % of Stenosis / Diameter reduction (Estimation based on the indirect measurements of the internal carotid artery velocities (ICA PSV). 1. Normal (no stenosis)=ICA PSV < 125 cm/s: ratio < 2.0: ICA EDV<40 cm/s. 2. Less than 50% stenosis=ICA PSV < 125 cm/s: ratio < 2.0: ICA EDV<40 cm/s. 3. 50 to 69% stenosis=ICA PSV of 125 to 230 cm/s: ration 2.0 ? 4.0: ICA EDV 40-100 cm/s. 4. Greater than 70% stenosis to near occlusion= ICA PSV > 230 cm/s: ratio > 4.0: ICA EDV > 100 cm/s. 5. Near occlusion= ICA PSV velocities may be low or undetectable: variable ratio and ICA EDV. 6. Total occlusion=unable to detect flow.
--- NOTE | 2023-01-09 09:42 | P.GSCN ---
History of Present Illness Consult date: 01/09/23 Reason for Consult: Lower extremity arterial occlusive disease Requesting physician: Terry Ruffin History of present illness: Patient is an 82-year-old female who had presented to the emergency department complaining of chest discomfort. She did undergo cardiac catheterization owing to her symptoms. This demonstrated some cardiac disease however during the examination attempt at cannulating the femoral artery on the left met with failure and the procedure was completed through the radial artery approach. Subsequently the patient did undergo CTA of the abdominal, pelvic and lower extremity arterial segments which demonstrates a thrombosed aortobifemoral bypass graft. Concern is expressed for ischemia of the right lower extremity as the patient does complain of right calf tenderness to palpation. Earlier today she did go into a pattern of atrial fibrillation with rapid ventricular response. She is currently being heparinized and administered antiarrhythmics in this regard. Past Medical History Past Medical History: Cancer, Dementia, Hypertension Additional Past Medical History / Comment(s): Per pt son pt had stomach cancer over 20 years ago and has had extensive vascular surgery done at [facility] in [place]. History of Any Multi-Drug Resistant Organisms: Unobtainable Past Surgical History: No Surgical Hx Reported Additional Past Surgical History / Comment(s): Bi-lateral pelvic by-pass grafts. Smoking Status: Current every day smoker Medications and Allergies Home Medications Medication Instructions Recorded Confirmed Type Acetaminophen Tab [Tylenol Tab] 500 mg PO Q6H PRN 01/08/23 01/08/23 History lisinopriL 40 mg PO DAILY 01/08/23 01/08/23 History Allergies Allergy/AdvReac Type Severity Reaction Status Date / Time codeine Allergy Itching Verified 01/08/23 18:53 Surgical - Exam Osteopathic Statement: *. No significant issues noted on an osteopathic structural exam other than those noted in the History and Physical/Consult. Vital Signs Temp Pulse Resp BP Pulse Ox 98.6 F 110 H 20 100/59 99 01/08/23 14:03 01/08/23 14:03 01/08/23 14:03 01/08/23 14:03 01/08/23 14:03 Patient Seen Date: 01/09/23 Patient Seen Time: 08:05 Patient is awake and alert although pleasantly demented. She has not able to express accurately her physical location thinking she is in [place]. Apparently the patient did grow up in [place] and her son continues to live in [place]. Right carotid bruit is noted. Cranial nerves 2 through 12 are grossly intact. Abdomen is soft and otherwise benign. Femoral pulses are palpable bilaterally while the popliteal, DP and PT pulses are absent bilaterally. Toes are movable. Feet are essentially nontender although the patient does express some discomfort when the right calf is squeezed. No similar reaction is noted on the contralateral side. There is no open wound noted either lower extremity. I reviewed the CTA findings. Patient may benefit from catheter angiography with possible percutaneous intervention possibly in the form of stent graft. If the patient is medically unstable the patient may eventually require amputation however this is yet to be determined. Will consider percutaneous repair pending further review of CTA. Results - Labs 01/09/23 05:45 01/09/23 05:45 Abnormal Lab Results - Last 24 Hours (Table) 01/08/23 01/08/23 01/08/23 Range/Units 17:33 17:33 17:33 WBC 17.3 H (3.8-10.6) k/uL RBC 3.52 L (3.80-5.40) m/uL Hgb 11.2 L (11.4-16.0) gm/dL Hct 33.5 L (34.0-46.0) % Plt Count 476 H (150-450) k/uL Neutrophils # 15.8 H (1.3-7.7) k/uL Lymphocytes # 0.9 L (1.0-4.8) k/uL Sodium 136 L (137-145) mmol/L Carbon Dioxide 20 L (22-30) mmol/L BUN 68 H (7-17) mg/dL Creatinine 1.21 H (0.52-1.04) mg/dL Glucose 121 H (74-99) mg/dL AST 359 H (14-36) U/L ALT 165 H (4-34) U/L Alkaline Phosphatase 159 H (38-126) U/L Troponin I 0.821 H* (0.000-0.034) ng/mL Total Protein (6.3-8.2) g/dL Albumin (3.5-5.0) g/dL Ur Specific [place] (1.001-1.035) Urine Protein (Negative) Urine Glucose (UA) (Negative) Urine Ketones (Negative) Urine Blood (Negative) Ur Squamous Epith Cells (0-4) /hpf Urine Mucus (None) /hpf 01/09/23 01/09/23 01/09/23 Range/Units 05:15 05:45 05:45 WBC 13.7 H (3.8-10.6) k/uL RBC 3.44 L (3.80-5.40) m/uL Hgb 10.6 L (11.4-16.0) gm/dL Hct 33.3 L (34.0-46.0) % Plt Count (150-450) k/uL Neutrophils # (1.3-7.7) k/uL Lymphocytes # (1.0-4.8) k/uL Sodium (137-145) mmol/L Carbon Dioxide (22-30) mmol/L BUN 49 H (7-17) mg/dL Creatinine (0.52-1.04) mg/dL Glucose (74-99) mg/dL AST 329 H (14-36) U/L ALT 158 H (4-34) U/L Alkaline Phosphatase 131 H (38-126) U/L Troponin I (0.000-0.034) ng/mL Total Protein 5.8 L (6.3-8.2) g/dL Albumin 2.9 L (3.5-5.0) g/dL Ur Specific [place] >1.050 H (1.001-1.035) Urine Protein 1+ H (Negative) Urine Glucose (UA) Trace H (Negative) Urine Ketones 1+ H (Negative) Urine Blood Large H (Negative) Ur Squamous Epith Cells 9 H (0-4) /hpf Urine Mucus Rare H (None) /hpf Diabetes panel 01/08/23 01/09/23 Range/Units 17:33 05:45 Sodium 136 L 140 (137-145) mmol/L Potassium 4.8 4.0 (3.5-5.1) mmol/L Chloride 100 106 (98-107) mmol/L Carbon Dioxide 20 L 23 (22-30) mmol/L BUN 68 H 49 H (7-17) mg/dL Creatinine 1.21 H 0.80 (0.52-1.04) mg/dL Glucose 121 H 94 (74-99) mg/dL Calcium 9.6 8.6 (8.4-10.2) mg/dL AST 359 H 329 H (14-36) U/L ALT 165 H 158 H (4-34) U/L Alkaline Phosphatase 159 H 131 H (38-126) U/L Total Protein 7.0 5.8 L (6.3-8.2) g/dL Albumin 3.6 2.9 L (3.5-5.0) g/dL Calcium panel 01/08/23 01/09/23 Range/Units 17:33 05:45 Calcium 9.6 8.6 (8.4-10.2) mg/dL Albumin 3.6 2.9 L (3.5-5.0) g/dL Pituitary panel 01/08/23 01/09/23 Range/Units 17:33 05:45 Sodium 136 L 140 (137-145) mmol/L Potassium 4.8 4.0 (3.5-5.1) mmol/L Chloride 100 106 (98-107) mmol/L Carbon Dioxide 20 L 23 (22-30) mmol/L BUN 68 H 49 H (7-17) mg/dL Creatinine 1.21 H 0.80 (0.52-1.04) mg/dL Glucose 121 H 94 (74-99) mg/dL Calcium 9.6 8.6 (8.4-10.2) mg/dL Adrenal panel 01/08/23 01/09/23 Range/Units 17:33 05:45 Sodium 136 L 140 (137-145) mmol/L Potassium 4.8 4.0 (3.5-5.1) mmol/L Chloride 100 106 (98-107) mmol/L Carbon Dioxide 20 L 23 (22-30) mmol/L BUN 68 H 49 H (7-17) mg/dL Creatinine 1.21 H 0.80 (0.52-1.04) mg/dL Glucose 121 H 94 (74-99) mg/dL Calcium 9.6 8.6 (8.4-10.2) mg/dL Total Bilirubin 0.6 0.4 (0.2-1.3) mg/dL AST 359 H 329 H (14-36) U/L ALT 165 H 158 H (4-34) U/L Alkaline Phosphatase 159 H 131 H (38-126) U/L Total Protein 7.0 5.8 L (6.3-8.2) g/dL Albumin 3.6 2.9 L (3.5-5.0) g/dL Assessment and Plan Assessment: 1: Severe aortoiliac occlusive disease was secondary arterial insufficiency of the bilateral lower extremities, more pronounced on the right than on the left. 2: Right carotid bruit 3: Cardiac dysrhythmia now on anticoagulation and antiarrhythmic. 4: History of tobacco abuse 5: Coronary artery disease status post cardiac catheterization Plan: 1: Will review CT films for possible stent graft repair. 2: Carotid duplex to evaluate carotid bruit. 3: Will follow. Time with Patient: Greater than 30
--- NOTE | 2023-01-09 10:59 | US ---
EXAMINATION TYPE: US arterial LE multi level DATE OF EXAM: 01/09/2023 10:26 AM CLINICAL INDICATION: Female, 82 years old with history of iliac occlusion; iliac occlusion History of: Smoker: current Hypertension: N Diabetic: N Hyperlipidemia: N TIA/CVA: N Previous Vascular Surgery: bilateral pelvic bypass grafts, no grafts lower in leg per. DO CAD: Severe MS: N Vascular Ulcers: N Claudication: N Gangrene: N Doppler Waveforms: Right: Multiphasic Left: Right Brachial Pressure: 136 Left Brachial Pressure: IV (Vessel hardening > 1.4; Normal 0.9 - 1.4, Moderate 0.7 - 0.9, Severe 0.5-0.7) Ankle-Brachial Indices: Right: UNABLE TO OBTAIN Left: 0.64 Toe Brachial Indices: Right: UNABLE TO OBTAIN Left: 0.37 Limited exam. Unable to detect right PT or DP waveforms. Two sonographers attempted. IMPRESSION: 1. Severe left peripheral vascular disease. 2. Limited evaluation the right unable to obtain pressures.
[2023-01-09 11:42] LABS: INR 1.2 (<1.2); Partial Thromboplastin Time 47.3 sec (22.0-30.0); Prothrombin Time 12.6 sec (9.0-12.0)
[2023-01-09] MEDS: AMIODARONE 450 MG in DEXTROSE 5% IN WATER 250 ML IV SCH ×2 (14:13)
[2023-01-09] MEDS: ASPIRIN 81 MG PO SCH (14:13)
[2023-01-09] MEDS: HEPARIN SODIUM 1,000 UN/ML (10ML VL) IV PRN ×2 (15:53→21:17)
--- NOTE | 2023-01-09 16:08 | EEG ---
ELECTROENCEPHALOGRAM REPORT CLINICAL HISTORY: This is an 82-year-old woman with altered mental status. The video EEG is obtained to evaluate for seizure epileptiform activity. EEG TYPE: This is a routine 21-channel EEG with video using the 10/20 electrode placement system. RELEVANT MEDICATION: The patient is not on any antiepileptic drugs. DESCRIPTION: The background consists of [id number] voltage of 6 to 6.5 hertz activity. At times, the background consists of nonrhythmic delta activity. There is no physiological stage 2 sleep architecture. There is no focal slowing. Interictal and ictal is none. ACTIVATION PROCEDURE: Photic stimulation did not evoke a posterior driving response. There is no abnormality during the photic stimulation. Hyperventilation is not performed. CLINICAL INTERPRETATION: This is an abnormal routine EEG. The background slowing is suggestive of moderate encephalopathy. Otherwise, there is no focal slowing, epileptiform discharges or seizure on the EEG. Clinical correlation is recommended. MUMTAZ / LITZYN: [id number] / TIFFANY
--- NOTE | 2023-01-09 16:54 | P.CNNES ---
History of Present Illness Consult date: 01/09/23 Requesting physician: Yan Ferrara Reason for Consult: ams History of Present Illness: This is an 82-year-old woman with history of memory loss presented emergency department because of a follow-up. History is obtained from the patient's friend Jeramie who she lives with and and knows her for the last 6-8 years as well as medical record that. Per her friend (Jeramie) was at bedside he stated that the patient was found down in the the floor in her back Monday morning and the he stated that he saw her last on Monday night and he thinks she slipped on a split carpets in his opinion. When he found her he stated that he denied any jerk in of any extremities, foaming around the mouth, he is unsure whether she had urinary incontinence or not he thinks she did about unsure. It is also seems that she fell off the toilet couple days prior to that. Patient does not have any history of seizures. According to the patient as she has memory loss for the last 3 years and the he thought was normal for age. He never witnessed an episode that she had shaken, foaming around the mouth. He stated that she's been having pain initially right hip pain and she was given opiates and that made her sleep than that which changed to cyclobenzaprine and that made her sleepy and confused so he took her off. Also she was taken off of naproxen because of she's having Katie blood in the stool. He does not have any history of stroke that he is aware of. He stated that she has significant alcohol use for years but she has not had a drink for about a month now. Seems during his hospital visit was felt the patient had an STEMI as well as A. fib and she was started on heparin drip as well as amiodarone. Was felt that she has significant peripheral arterial disease. Some of the workup during his hospital visit consisted of: Patient has been afebrile so far. Initial white blood cell is 17.3 thousand and most recent is a 13.7. Sodium is 136 most creatinine is 140, glucose is 121, calcium is 9.6, AST is 3 out of 59 in ALT is 165. Abdomen is 1.[address] of the head is reported as no acute intracranial process. CT cervical spine was reported as no evidence of cervical spine fracture. Mild multilevel degenerative disc disease. Carotid duplex is reported as less than 50% stenosis of bilateral carotid bifurcation. Arterial ultrasound lower extremities reported as severe left peripheral vascula r disease. Limited evaluation the right unable to obtain pressure. Review of Systems The positive and negative as per HPI. Past Medical History Past Medical History: Cancer, Dementia, Hypertension Additional Past Medical History / Comment(s): Per pt son pt had stomach cancer over 20 years ago and has had extensive vascular surgery done at [facility] in [place]. History of Any Multi-Drug Resistant Organisms: Unobtainable Past Surgical History: No Surgical Hx Reported Additional Past Surgical History / Comment(s): Bi-lateral pelvic by-pass grafts. Smoking Status: Current every day smoker Medications and Allergies Home Medications Medication Instructions Recorded Confirmed Type Acetaminophen Tab [Tylenol Tab] 500 mg PO Q6H PRN 01/08/23 01/08/23 History lisinopriL 40 mg PO DAILY 01/08/23 01/08/23 History Allergies Allergy/AdvReac Type Severity Reaction Status Date / Time codeine Allergy Itching Verified 01/08/23 18:53 Physical Examination - Vital Signs Vital Signs: Vital Signs Temp Pulse Pulse Resp BP Pulse Ox 01/09/23 15:00 85 15 133/82 96 01/09/23 14:00 130 H 12 121/64 96 01/09/23 13:00 124 H 15 131/82 89 L 01/09/23 12:00 98.2 F 121 H 18 124/74 96 01/09/23 11:30 128 H 12 124/89 97 01/09/23 11:00 118 H 12 140/81 97 01/09/23 10:30 130 H 16 147/81 96 01/09/23 10:00 123 H 18 136/83 97 01/09/23 09:30 121 H 12 117/99 96 01/09/23 09:00 133 H 15 83/67 97 01/09/23 08:30 131 H 18 121/101 95 01/09/23 08:00 97.8 F 129 H 18 121/101 98 01/09/23 07:30 82 18 168/73 01/09/23 07:00 89 18 168/73 01/09/23 06:00 87 13 164/76 95 01/09/23 05:30 86 16 96 01/09/23 05:00 95 13 129/96 01/09/23 04:30 83 12 01/09/23 04:00 97.9 F 84 19 144/62 01/09/23 03:30 80 17 01/09/23 03:00 88 19 152/62 01/09/23 02:00 79 16 152/70 01/09/23 01:00 90 16 148/81 01/09/23 00:30 82 17 153/61 97 01/09/23 00:00 97.7 F 82 16 157/83 97 01/08/23 23:30 84 15 158/54 96 01/08/23 23:08 85 15 158/54 97 01/08/23 23:00 81 3 L 154/70 96 01/08/23 22:50 86 11 L 154/70 96 01/08/23 22:40 85 18 154/70 91 L 01/08/23 22:30 86 11 L 151/91 88 L 01/08/23 22:20 85 23 151/91 96 01/08/23 22:10 80 18 151/91 97 01/08/23 22:00 78 15 173/72 98 01/08/23 21:50 78 8 L 173/72 93 L 01/08/23 21:40 81 9 L 173/72 97 01/08/23 21:30 81 27 H 175/59 94 L 01/08/23 21:20 81 11 L 175/59 01/08/23 21:10 84 13 175/59 01/08/23 20:30 134/74 01/08/23 20:20 79 50 H 134/74 01/08/23 20:10 81 12 134/74 91 L 01/08/23 20:00 83 85 15 145/68 94 L 01/08/23 19:50 79 26 H 145/68 01/08/23 19:40 82 9 L 88 L 01/08/23 18:20 99 18 159/70 01/08/23 18:10 87 159/70 99 01/08/23 18:00 89 19 149/80 01/08/23 17:40 87 18 137/76 99 01/08/23 17:26 94 18 137/76 98 Intake and Output 01/09/23 01/09/23 01/09/23 06:59 14:59 22:59 Intake Total 675 650 145.518 Output Total 850 400 400 Balance -175 250 -254.482 Intake: IV 650 100 Sodium Chloride 0.9% 1, 650 100 000 ml @ 100 mls/hr IV . Q10H YAMIL Rx#:[id number] Intake, IV Titration 675 45.518 Amount Heparin Sod,Pork in 0.45% 45.518 NaCl 25,000 unit In 0.45 % NaCl 1 250ml.bag @ 12 UNITS/KG/HR 6.264 mls/hr IV .Q24H YAMIL Rx#: [id number] Sodium Chloride 0.9% 1, 675 000 ml @ 100 mls/hr IV . Q10H YAMIL Rx#:[id number] Output: Urine 850 400 400 Other: Voiding Method Bedpan Bedpan Bedpan Weight 52.2 kg GENERAL: The patient is lying in bed and is not in acute distress. NEUROLOGICAL: Higher mental function: The patient is awake, alert, oriented to self. She thought she was at home and did not know year but after notifying her and within 2 minutes of asking her same questions she responded correctly. She is able to name pen and watch her. She is able to follow some simple commands. No aphasia from limited the language. No neglect. The pupils are round equal reactive to light. The pupils are around 3 mm bilaterally. Visual diamond are full to confrontation throughout. Extraocular movement is intact no nystagmus. Normal facial facial sensation to touch throughout. No facial weakness. Hearing is severely decreased bilaterally throughout. No dysarthria Motor is individual muscle strength is hard to assess because of her cooperation but lifting bilateral uppers above gravity without any difficulty. Lowers she briefly lifted them above gravity but upon touch him my the right lower was very tender to touch. His station was normal touch in the upper October lowers she refused to be touched because of pain. Reflexes she refused. Results - Laboratory Findings CBC and BMP: 01/09/23 05:45 01/09/23 05:45 Abnormal Lab Findings: Abnormal Labs 01/08/23 01/08/23 01/08/23 17:33 17:33 17:33 WBC 17.3 H RBC 3.52 L Hgb 11.2 L Hct 33.5 L Plt Count 476 H Neutrophils # 15.8 H Lymphocytes # 0.9 L PT INR APTT Sodium 136 L Carbon Dioxide 20 L BUN 68 H Creatinine 1.21 H Glucose 121 H AST 359 H ALT 165 H Alkaline Phosphatase 159 H Creatine Kinase Troponin I 0.821 H* Total Protein Albumin Ur Specific [place] Urine Protein Urine Glucose (UA) Urine Ketones Urine Blood Ur Squamous Epith Cells Urine Mucus 01/09/23 01/09/23 01/09/23 05:15 05:45 05:45 WBC 13.7 H RBC 3.44 L Hgb 10.6 L Hct 33.3 L Plt Count Neutrophils # Lymphocytes # PT INR APTT Sodium Carbon Dioxide BUN 49 H Creatinine Glucose AST 329 H ALT 158 H Alkaline Phosphatase 131 H Creatine Kinase Troponin I Total Protein 5.8 L Albumin 2.9 L Ur Specific [place] >1.050 H Urine Protein 1+ H Urine Glucose (UA) Trace H Urine Ketones 1+ H Urine Blood Large H Ur Squamous Epith Cells 9 H Urine Mucus Rare H 01/09/23 01/09/23 05:45 10:50 WBC RBC Hgb Hct Plt Count Neutrophils # Lymphocytes # PT 12.6 H INR 1.2 H APTT 47.3 H Sodium Carbon Dioxide BUN Creatinine Glucose AST ALT Alkaline Phosphatase Creatine Kinase 16684 H* Troponin I Total Protein Albumin Ur Specific [place] Urine Protein Urine Glucose (UA) Urine Ketones Urine Blood Ur Squamous Epith Cells Urine Mucus Assessment and Plan Assessment: This is a 82-year-old woman with history of dementia, significant alcohol use a nd last was about a month ago who presented to the imaging department because of a fall. Per her friend he found her on the floor but no jerk in of any extremities, no foaming around the mouth and no history of seizures. She had a recent fall recently from the toilet. She was complaining of lower extremity pain and hip pain and that initially she was on opiates and that was discontinued and the was started on cyclobenzaprine then that was discontinued as well She is a patient has severe left peripheral vascular disease. She is found to have A. fib and is currently on heparin drip as well as a non-STEMI. Altered mental status is due to component of metabolic encephalopathy. Her AST ALT are elevated. As well as that has a large component of underlying dementia. Per friend he feels she is back to baseline. Fall possibly due to underlying peripheral vascular disease. Rhabdomyolysis seems due to underlying fall and her CK level was 13,600. History of dementia Peripheral vascular disease of lower extremity Atrial fibrillation on heparin drip and amiodarone Non-STEMI Significant alcohol use and the last alcohol drink was about a month ago. Plan: I ordered TSH, ammonia level, vitamin B12, folate Hepatitis panel is ordered by the primary team is pending. CK levels to be continued to be monitored. She is on Lipitor 40 mg daily. Consider possibly holding until the CK level normalizes. I ordered an EEG and it's abnormal. The back was on suggestive of moderate encephalopathy. Otherwise there is no focal slowing, epileptiform discharges or seizure on the EEG. Started the patient on thiamine 100 mg daily. We'll defer the rest of the medical management to the to cardiology and the vascular surgery team as well primary team. Plan discussed well with the patient's close friend (Jeramie) who is at bedside and her ICU nurse. Thank you for the consultation. Time with Patient: Greater than 30
[2023-01-09] MEDS ORDERED: THIAMINE 100 MG/ML 2 ML VIAL IM STA (17:08)
--- NOTE | 2023-01-09 18:06 | P.PN ---
Subjective This is an 82-year-old female patient with a past medical history significant for history of lower extremities PAD as well as hypertension and dyslipidemia. The patient is somewhat poor historian and she does have slight change in mental status and disorientation. We consulted to see the patient for further evaluation off abnormal EKG showing an anterior ST elevation myocardial infarction and the ST segment changes are massive. The patient presented to the emergency department after she fell with a questionable syncope. She injured her right great toe. She was brought by her boyfriend to the emergency department where workup was performed including computed tomography scan of the brain which showed no acute abnormalities. Subsequently she underwent an EKG which showed significant ST segment elevation anteriorly concerning for STEMI. Also the patient was found to have cold right foot. We don't know the duration of her foot coolness. The patient was taken emergently to the cardiac [facility] animal [facility] where she underwent an angiogram from the right radial approach and that showed mild nonobstructive coronary artery disease. I did not performed left heart catheterization on her because I was concerned about any thrombus in the LV cou ld be responsible for her cold foods as well as abnormal EKG with possible embolization which dissolved. Initially I accessed the left common femoral artery and its appeared that the patient underwent in the past aorta bifemoral bypass. The angiogram revealed a patent left common femoral artery but it seems that the wire was in the bypass to the left common femoral artery. She noted to have stenting either in her port heiden left iliac arteries or in the left iliac's vein. It's hard to tell at this point. The procedure was performed from the right radial approach and the patient tolerated the procedure very well. The cath revealed only mild nonobstructive coronary artery disease. The patient will be transferred to the intensive care unit. I'm going to obtain CTA of the chest and abdomen and lower extremities just to rule out any evidence off dissection and also to assess the lower extremities arterial system. Vascular surgical consult we will be also obtained. Beside that the patient underwent a blood work showed stable hemoglobin was troponin is a slightly elevated and abnormal renal function and normal electrolytes. The liver function tests are elevated. Please note that the patient is alcoholic The examination is remarkable for stable vital signs beside elevated blood pressure consistent with a stage II hypertension and also distant heart sounds with clear breathing sounds bilaterally. 01/09 Seen and examined. Patient underwent heart catheterization yesterday with no obstructive disease. EKG has somewhat improved however mild persistent elevations. Echocardiogram ordered however has not been resulted. Repeat troponin also ordered however not resulted. Vascular surgery was consult that and CTA was performed with severe bilateral disease and occluded grafts. Her right lower extremity is cool however no open sores and denies any pain. Patient is somewhat confused however answers some questions appropriately. She did have episode of going into A. fib with RVR and amiodarone drip was started and she converted back to sinus rhythm. She also has been placed on a heparin drip. Assessment Abnormal EKG concerning for ST elevation myocardial infarction. Mild nonobstructive coronary artery disease Cold right foot PAD with prior revascularization Change in mental status Significant history of alcohol abuse New onset paroxysmal Afib Altered mental status Plan Heart catheterization was performed and showed mild CAD only Check repeat troponin to trend. Check 2-D echo. Beta boris as tolerated. Additionally start anticoagulation for new-onset A. fib. Continue amiodarone and transition to oral. Further recommendations to follow. Objective - Vital Signs Vital signs: Vital Signs Temp 98.1 F 01/09/23 16:00 Pulse 92 01/09/23 17:00 Resp 26 H 01/09/23 17:00 BP 145/44 01/09/23 16:00 Pulse Ox 86 L 01/09/23 17:00 FiO2 Intake & Output 01/08/23 01/09/23 01/09/23 18:59 06:59 18:59 Intake Total 150 900 995.518 Output Total 850 800 Balance 150 50 195.518 Weight 56.699 kg 52.2 kg Intake: IV 150 950 Sodium Chloride 0.9% 1, 950 000 ml @ 200 mls/hr IV . Q5H [facility] Rx#:[id number] Intake, IV Titration 900 45.518 Amount Heparin Sod,Pork in 0.45% 45.518 NaCl 25,000 unit In 0.45 % NaCl 1 250ml.bag @ 12 UNITS/KG/HR 6.264 mls/hr IV .Q24H [facility] Rx#: [id number] Sodium Chloride 0.9% 1, 900 000 ml @ 200 mls/hr IV . Q5H [facility] Rx#:[id number] Output: Urine 850 800 Other: Voiding Method Bedpan Bedpan - Labs CBC & Chem 7: 01/09/23 05:45 01/09/23 05:45 Labs: Abnormal Lab Results - Last 24 Hours (Table) 01/08/23 01/08/23 01/08/23 Range/Units 17:33 17:33 17:33 WBC 17.3 H (3.8-10.6) k/uL RBC 3.52 L (3.80-5.40) m/uL Hgb 11.2 L (11.4-16.0) gm/dL Hct 33.5 L (34.0-46.0) % Plt Count 476 H (150-450) k/uL Neutrophils # 15.8 H (1.3-7.7) k/uL Lymphocytes # 0.9 L (1.0-4.8) k/uL PT (9.0-12.0) sec INR (<1.2) APTT (22.0-30.0) sec Sodium 136 L (137-145) mmol/L Carbon Dioxide 20 L (22-30) mmol/L BUN 68 H (7-17) mg/dL Creatinine 1.21 H (0.52-1.04) mg/dL Glucose 121 H (74-99) mg/dL AST 359 H (14-36) U/L ALT 165 H (4-34) U/L Alkaline Phosphatase 159 H (38-126) U/L Creatine Kinase (30-135) U/L Troponin I 0.821 H* (0.000-0.034) ng/mL Total Protein (6.3-8.2) g/dL Albumin (3.5-5.0) g/dL Ur Specific [place] (1.001-1.035) Urine Protein (Negative) Urine Glucose (UA) (Negative) Urine Ketones (Negative) Urine Blood (Negative) Ur Squamous Epith Cells (0-4) /hpf Urine Mucus (None) /hpf 01/09/23 01/09/23 01/09/23 Range/Units 05:15 05:45 05:45 WBC 13.7 H (3.8-10.6) k/uL RBC 3.44 L (3.80-5.40) m/uL Hgb 10.6 L (11.4-16.0) gm/dL Hct 33.3 L (34.0-46.0) % Plt Count (150-450) k/uL Neutrophils # (1.3-7.7) k/uL Lymphocytes # (1.0-4.8) k/uL PT (9.0-12.0) sec INR (<1.2) APTT (22.0-30.0) sec Sodium (137-145) mmol/L Carbon Dioxide (22-30) mmol/L BUN 49 H (7-17) mg/dL Creatinine (0.52-1.04) mg/dL Glucose (74-99) mg/dL AST 329 H (14-36) U/L ALT 158 H (4-34) U/L Alkaline Phosphatase 131 H (38-126) U/L Creatine Kinase (30-135) U/L Troponin I (0.000-0.034) ng/mL Total Protein 5.8 L (6.3-8.2) g/dL Albumin 2.9 L (3.5-5.0) g/dL Ur Specific [place] >1.050 H (1.001-1.035) Urine Protein 1+ H (Negative) Urine Glucose (UA) Trace H (Negative) Urine Ketones 1+ H (Negative) Urine Blood Large H (Negative) Ur Squamous Epith Cells 9 H (0-4) /hpf Urine Mucus Rare H (None) /hpf 01/09/23 01/09/23 Range/Units 05:45 10:50 WBC (3.8-10.6) k/uL RBC (3.80-5.40) m/uL Hgb (11.4-16.0) gm/dL Hct (34.0-46.0) % Plt Count (150-450) k/uL Neutrophils # (1.3-7.7) k/uL Lymphocytes # (1.0-4.8) k/uL PT 12.6 H (9.0-12.0) sec INR 1.2 H (<1.2) APTT 47.3 H (22.0-30.0) sec Sodium (137-145) mmol/L Carbon Dioxide (22-30) mmol/L BUN (7-17) mg/dL Creatinine (0.52-1.04) mg/dL Glucose (74-99) mg/dL AST (14-36) U/L ALT (4-34) U/L Alkaline Phosphatase (38-126) U/L Creatine Kinase 37794 H* (30-135) U/L Troponin I (0.000-0.034) ng/mL Total Protein (6.3-8.2) g/dL Albumin (3.5-5.0) g/dL Ur Specific [place] (1.001-1.035) Urine Protein (Negative) Urine Glucose (UA) (Negative) Urine Ketones (Negative) Urine Blood (Negative) Ur Squamous Epith Cells (0-4) /hpf Urine Mucus (None) /hpf
[2023-01-09 18:35] LABS: Hepatitis A Antibody IgM Nonreactive; Hepatitis B Core IgM Nonreactive; Hepatitis B Surface Antigen Nonreactive; Hepatitis C IgG Antibody Nonreactive
[2023-01-09] MEDS: FOLIC ACID 1 MG TAB PO SCH (20:56)
[2023-01-09 21:25] LABS: Creatine Kinase 10756 U/L (30-135)
[2023-01-09] MEDS: lisinopriL 5 MG TAB PO SCH (21:46)
[2023-01-10] MEDS ORDERED: amLODIPine 5 MG TAB PO STA (00:17)
[2023-01-10] MEDS: HEPARIN SODIUM 1,000 UN/ML (10ML VL) IV PRN (01:33)
[2023-01-10] MEDS: AMIODARONE 450 MG in DEXTROSE 5% IN WATER 250 ML IV SCH ×2 (04:41)
[2023-01-10 07:34] LABS: Potassium 4.1 mmol/L (3.5-5.1)
[2023-01-10 07:36] LABS: Basophils % (A) 0 %; Eosinophils # (A) 0.2 k/uL (0-0.7); Eosinophils % (A) 1 %; HCT 31.6 % (34.0-46.0); HGB 10.5 gm/dL (11.4-16.0); Lymphocytes # (A) 1.2 k/uL (1.0-4.8); Lymphocytes % (A) 5 %; MCH 31.2 pg (25.0-35.0); MCHC 33.2 g/dL (31.0-37.0); Mean Platelet Volume 8.6; Monocytes # (A) 0.5 k/uL (0-1.0); Monocytes % (A) 2 %; Neutrophils # (A) 19.6 k/uL (1.3-7.7); Neutrophils % (A) 91 %; Platelet Count 399 k/uL (150-450); RBC 3.36 m/uL (3.80-5.40); RDW 13.9 % (11.5-15.5); WBC 21.6 k/uL (3.8-10.6)
[2023-01-10] MEDS: HEPARIN SOD,PORK IN 0.45% NACL 25,000 UNIT in 0.45% NACL 1 250ML.BAG IV SCH (07:43)
[2023-01-10 07:56] LABS: INR 1.1 (<1.2); Prothrombin Time 11.6 sec (9.0-12.0)
[2023-01-10 07:58] LABS: ALT 177 U/L (4-34); AST 348 U/L (14-36); African American GFR (CKD) >90 (>60 ml/min/1.73 sqM); Albumin 2.9 g/dL (3.5-5.0); Alkaline Phosphatase 136 U/L (38-126); Anion Gap 9 mmol/L; Blood Urea Nitrogen 18 mg/dL (7-17); Calcium 8.6 mg/dL (8.4-10.2); Carbon Dioxide 22 mmol/L (22-30); Chloride 103 mmol/L (98-107); Glucose 122 mg/dL (74-99); Non-African American GFR(CKD) >90 (>60 ml/min/1.73 sqM); Phosphorus 2.3 mg/dL (2.5-4.5); Sodium 134 mmol/L (137-145); Total Bilirubin 0.7 mg/dL (0.2-1.3); Total Protein 5.9 g/dL (6.3-8.2)
[2023-01-10 07:59] LABS: Creatine Kinase 14686 U/L (30-135)
[2023-01-10] MEDS: lisinopriL 5 MG TAB PO SCH (08:17)
[2023-01-10] MEDS: ASPIRIN 81 MG PO SCH (08:17)
[2023-01-10] MEDS: AMIODARONE 200 MG TAB PO SCH ×2 (08:17→20:18)
[2023-01-10] MEDS: METOPROLOL SUCCINATE (ER) 25 MG TAB.ER.24H PO SCH (08:17)
[2023-01-10] MEDS: THIAMINE 100 MG TAB PO SCH (08:17)
[2023-01-10] MEDS: FOLIC ACID 1 MG TAB PO SCH (08:17)
--- NOTE | 2023-01-10 10:15 | P.PN ---
Subjective Progress Note Date: 01/10/23 Principal diagnosis: Right lower extremity ischemia Patient is seen and examined in the ICU. She is pleasantly confused. She states she has no pain however when evaluating her right lower extremity she is grimacing with palpation, touch, and squeezing. She remains on amiodarone drip, as well as a heparin drip. Amiodarone to be transition to oral as patient converted to normal sinus rhythm from atrial fibrillation with RVR. She was hypertensive through the night. No other acute changes. WBC 21.6 hemoglobin 10.5 platelet count 399,000 sodium 134 potassium 4.1 BUN 18 creatinine 0.45. Creatinine kinase 59475. Objective - Vital Signs Vital signs: Vital Signs Temp 97.4 F L 01/10/23 08:00 Pulse 89 01/10/23 08:00 Resp 20 01/10/23 08:00 BP 189/77 01/10/23 08:00 Pulse Ox 98 01/10/23 08:00 FiO2 Intake & Output 01/09/23 01/10/23 01/10/23 18:59 06:59 18:59 Intake Total 1095.518 420.913 415.909 Output Total 800 855 0 Balance 295.518 -434.087 415.909 Weight 50.439 kg Intake: IV 1050 100 Sodium Chloride 0.9% 1, 1050 100 000 ml @ 200 mls/hr IV . Q5H [facility] Rx#:[id number] Intake, IV Titration 45.518 320.913 315.909 Amount Amiodarone 360 mg In 200 Dextrose 5% in Water 200 ml @ 1 MG/MIN 33.333 mls/ hr IV .Q6H [facility] Rx#: [id number] Amiodarone 450 mg In 241.116 51.668 Dextrose 5% in Water 250 ml @ 0.5 MG/MIN 16.667 mls/hr IV .Q15H [facility] Rx#: [id number] Heparin Sod,Pork in 0.45% 45.518 79.797 64.241 NaCl 25,000 unit In 0.45 % NaCl 1 250ml.bag @ 12 UNITS/KG/HR 6.264 mls/hr IV .Q24H [facility] Rx#: [id number] Oral 100 Output: Urine 800 855 0 Other: Voiding Method Bedpan Bedpan Bedpan # Voids 1 - Exam General appearance: The patient is alert 1, appears in no acute distress. HET: Head is normocephalic and atraumatic. Neck: Supple. Heart: Regular. Lungs: Equal expansion, normal respiratory effort. Abdomen: Soft, nondistended. Extremities: Normal skin color and turgor. Right lower extremity cool to the touch, tender to palpation. Palpable right femoral pulse. Nonpalpable bilateral DP pulses. Neurological: Pleasantly confused. Alert 1. - Labs CBC & Chem 7: 01/10/23 07:02 01/10/23 07:02 Labs: Abnormal Lab Results - Last 24 Hours (Table) 01/09/23 01/09/23 01/09/23 Range/Units 05:45 10:50 19:01 WBC (3.8-10.6) k/uL RBC (3.80-5.40) m/uL Hgb (11.4-16.0) gm/dL Hct (34.0-46.0) % Neutrophils # (1.3-7.7) k/uL PT 12.6 H (9.0-12.0) sec INR 1.2 H (<1.2) APTT 47.3 H (22.0-30.0) sec Sodium (137-145) mmol/L BUN (7-17) mg/dL Creatinine (0.52-1.04) mg/dL Glucose (74-99) mg/dL Phosphorus (2.5-4.5) mg/dL AST (14-36) U/L ALT (4-34) U/L Alkaline Phosphatase (38-126) U/L Creatine Kinase 16803 H* 13515 H* (30-135) U/L Troponin I (0.000-0.034) ng/mL Total Protein (6.3-8.2) g/dL Albumin (3.5-5.0) g/dL Vitamin B12 1011.0 H (200.0-944.0) pg/mL Folate (4.40-31.00) ng/mL 01/09/23 01/09/23 01/09/23 Range/Units 19:01 19:01 19:01 WBC (3.8-10.6) k/uL RBC (3.80-5.40) m/uL Hgb (11.4-16.0) gm/dL Hct (34.0-46.0) % Neutrophils # (1.3-7.7) k/uL PT (9.0-12.0) sec INR (<1.2) APTT 37.8 H (22.0-30.0) sec Sodium (137-145) mmol/L BUN (7-17) mg/dL Creatinine (0.52-1.04) mg/dL Glucose (74-99) mg/dL Phosphorus (2.5-4.5) mg/dL AST (14-36) U/L ALT (4-34) U/L Alkaline Phosphatase (38-126) U/L Creatine Kinase (30-135) U/L Troponin I 0.301 H* (0.000-0.034) ng/mL Total Protein (6.3-8.2) g/dL Albumin (3.5-5.0) g/dL Vitamin B12 (200.0-944.0) pg/mL Folate 4.20 L (4.40-31.00) ng/mL 01/10/23 01/10/23 01/10/23 Range/Units 00:44 00:44 06:59 WBC (3.8-10.6) k/uL RBC (3.80-5.40) m/uL Hgb (11.4-16.0) gm/dL Hct (34.0-46.0) % Neutrophils # (1.3-7.7) k/uL PT (9.0-12.0) sec INR (<1.2) APTT 34.9 H 35.8 H (22.0-30.0) sec Sodium (137-145) mmol/L BUN (7-17) mg/dL Creatinine (0.52-1.04) mg/dL Glucose (74-99) mg/dL Phosphorus (2.5-4.5) mg/dL AST (14-36) U/L ALT (4-34) U/L Alkaline Phosphatase (38-126) U/L Creatine Kinase 93985 H* (30-135) U/L Troponin I (0.000-0.034) ng/mL Total Protein (6.3-8.2) g/dL Albumin (3.5-5.0) g/dL Vitamin B12 (200.0-944.0) pg/mL Folate (4.40-31.00) ng/mL 01/10/23 01/10/23 Range/Units 07:02 07:02 WBC 21.6 H (3.8-10.6) k/uL RBC 3.36 L (3.80-5.40) m/uL Hgb 10.5 L (11.4-16.0) gm/dL Hct 31.6 L (34.0-46.0) % Neutrophils # 19.6 H (1.3-7.7) k/uL PT (9.0-12.0) sec INR (<1.2) APTT (22.0-30.0) sec Sodium 134 L (137-145) mmol/L BUN 18 H (7-17) mg/dL Creatinine 0.45 L (0.52-1.04) mg/dL Glucose 122 H (74-99) mg/dL Phosphorus 2.3 L (2.5-4.5) mg/dL AST 348 H (14-36) U/L ALT 177 H (4-34) U/L Alkaline Phosphatase 136 H (38-126) U/L Creatine Kinase 72908 H* (30-135) U/L Troponin I (0.000-0.034) ng/mL Total Protein 5.9 L (6.3-8.2) g/dL Albumin 2.9 L (3.5-5.0) g/dL Vitamin B12 (200.0-944.0) pg/mL Folate (4.40-31.00) ng/mL Assessment and Plan Assessment: 1. Severe aorto iliac occlusive disease with secondary arterial insufficiency of bilateral lower extremities, more pronounced on right than left 2. Atrial fibrillation with RVR on anticoagulation 3. History of tobacco abuse 4. Coronary artery disease status post cardiac catheterization 5. Rhabdomyolysis Plan: CT findings reviewed independently by Dr. Solo. Right lower extremity venous duplex ordered. Plan for catheter directed angiogram tomorrow, will need to hold heparin 3 hours prior to angiogram. Further recommendations forthcoming based on angiogram findings. Of course will need cardiac clearance prior to any vascular surgical intervention and this will be discussed with cardiology. C arotid duplex reviewed with findings of less than 50% stenosis of the bilateral carotid bifurcations. Continue medical management per primary medical team. We will continue to follow. The impression and plan of care has been dictated as directed. I performed a history and examination of this patient, discussed the same with the dictator. I agree with the dictator's note ,documented as a scribe. Any additional findings or plans will be noted.
--- NOTE | 2023-01-10 13:44 | CA ---
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 67 - 155 / 56 - 104 cm??? LV Systolic Volume MOD BP 16.5 cm??? - 58 / 19 - 49 cm??? LV Ejection Fraction MOD BP 54.2 % >= 55 % LV Cardiac Index MOD BP 1103.9 cm???/min???m??? LV Diastolic Volume MOD 4C 34.4 cm??? LV Systolic Volume MOD 4C 17.2 cm??? LV Ejection Fraction MOD 4C 50.1 % LV Cardiac Index MOD 4C 973.7 cm???/min???m??? LV Diastolic Length 4C 5.8 cm LV Systolic Length 4C 5.3 cm LV Diastolic Volume MOD 2C 33.6 cm??? LV Systolic Volume MOD 2C 14.9 cm??? LV Ejection Fraction MOD 2C 55.7 % LV Cardiac Index MOD 2C 1057.2 cm???/min???m??? LV Diastolic Length 2C 6.5 cm LV Systolic Length 2C 5.7 cm LA Volume 26.6 cm??? 18 - 58 / 22 - 52 cm??? LA Volume Index 17.2 cm???/m??? 16 - 28 cm???/m??? DOPPLER AV Peak Velocity 112.8 cm/s AV Peak Gradient 5.1 mmHg LVOT Peak Velocity 93.7 cm/s LVOT Peak Gradient 3.5 mmHg LVOT Velocity Time Integral 18.1 cm LVOT Stroke Volume 50.1 cm??? LVOT Stroke Volume Index 32.1 ml/m??? LVOT Cardiac Index 2830.6 cm???/min???m??? AV Area Cont Eq pk 2.3 cm??? MV Peak Velocity 91.8 cm/s MV Peak Gradient 3.4 mmHg MV Mean Velocity 58.2 cm/s MV Mean Gradient 1.6 mmHg MV Velocity Time Integral 19.3 cm MR Peak Velocity 423.7 cm/s MR Peak Gradient 71.8 mmHg Mitral E Point Velocity 82.1 cm/s Mitral A Point Velocity 68.6 cm/s Mitral E to A Ratio 1.2 MV Deceleration Time 173.2 ms MV E' Velocity 5.7 cm/s Mitral E to MV E' Ratio 14.4 TR Peak Velocity 240.3 cm/s TR Peak Gradient 23.1 mmHg Right Ventricular Systolic Press 28.2 mmHg PV Peak Velocity 85.4 cm/s PV Peak Gradient 2.9 mmHg FINDINGS Left Ventricle Normal LV size and wall thickness. Left ventricular ejection fraction is estimated at 50-55 %. Right Ventricle Normal right ventricular size. RVSP= 32mmHg. Right Atrium Normal right atrial size. Left Atrium Normal left atrial size. Mitral Valve Structurally normal mitral valve. Mild MR. Aortic Valve Trileaflet aortic valve. Aortic valve not well visualized. No aortic valve stenosis or regurgitation. Tricuspid Valve Structurally normal tricuspid valve. Mild TR Pulmonic Valve Pulmonic valve not well visualized. Trace TR. Pericardium Normal pericardium. Aorta Normal size aortic root . CONCLUSIONS Normal LV size and function Previewed by: Dr. Wisam Packer MD (Electronically Signed) Final Date: 10 January 2023 13:43
--- NOTE | 2023-01-10 14:15 | P.PN ---
Subjective Progress Note Date: 01/10/23 Patient is an 82-year-old female with known dementia, peripheral arterial disease, hypertension, and hyperlipidemia who initially presented to the emergency room for falls and confusion. At arrival to the emergency department she was tachycardic with a pulse of 110 the remainder of her vitals were normal. Laboratory analysis was remarkable for white blood cell count 17.3, hemoglobin 11.2, platelets 476, sodium 136, carbon dioxide 20, BUN 68, creatinine 1.21, glucose 121, AST 359, ALT 165, troponin 0.821. Toe x-ray shows no evidence of acute trauma. Chest x-ray shows no acute process. CT head and cervical spine showed no acute intracranial process no evidence of cervical spine fracture but mild multi degenerative disc disease. In the emergency department she was not complaining of chest pain but EKG revealed possible ST segment elevated myocardial infarction. She was also found to have a cold right extremity. She therefore was taken emergently to clinical lab scientist. She was found to have mild coronary artery disease. She was subsequently transferred to the ICU. Consult was placed for vascular surgery. 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 She develoepd A fib wtih RVR and was started on heparin and amiodarone drip. 01/10 Patient was seen and examined. Patient reports no complaints. Pain well controlled. Son reports foot feels warmer and color is better. Currently on Heparin drip at 12 units/kg/hr. Started on Amiodarone 400 mg PO BID. Continued o n ASA and Metoprolol. Arterial duplex shows severe left PAD unable to comment on R.Carotid doppler shows < 50% stenosis of the bilateral carotid bifurcations. EEG shows moderate encephalopathy, no epileptiform dischages. CBC shows WBC count 21.6, Hg 10.6. CMP shows Na 134, BUN 18, Cr 0.45, glucose 122, Phos 2.3, AST 348, ALT 177, alk phos 136, albumin 2.9. CPK 11900. Vascular surgery plans for catheter directed angiogram tomorrow, will need to hold heparin 3 hours prior to angiogram, need Cardiology clearance. Vital signs reviewed General: nontoxic, no distress, appears at stated age Cardiovascular: S1S2 reg, no murmur, no appreciable dorsalis pedis pulses bilaterally Lungs: CTA bilateral, no rhonchi, no rales, no accessory muscle use Ext: no gross muscle atrophy, no edema b/l lower extremities, no contractures Neuro: no focal neuro deficits Psych: Alert, oriented to self , appropriate affect Ischemic right lower extremity with history of severe peripheral arterial disease Elevated troponin, abnormal EKG A fib with RVR Rhabdomyolysis Anemia Transaminitis Altered mentation with prior dx of dementia Leukoctyosis, suspect reactive Low folate Resolved: Acute kidney injury Chronic conditions: Hypertension, dyslipidemia, dementia Based on my assessment of this patient, this patient meets a high complexity level of care. Patient has an acute diagnosis of ischemic RLE that poses a threat to life or bodily function. This is complicated by A-Fib with RVR, elevated troponins and r habdomyolysis. Ischemic right lower extremity with history of severe peripheral arterial disease: ASA 81 mg PO QD. Metoprolol 12.5 mg PO QD. Heparin drip at 12 units/kg/hr. Telemetry monitoring. Vascular surgery on board. Elevated troponin, abnormal EKG: Status post cath. No obstructive disease. Ec hocardiogram pending. ASA and beta boris as above. Would benefit from statin after rhabdo resoloved. Cardiology on board. A fib with RVR: Amiodarone 400 mg PO BID. Heparin drip for AC. Rhabdomyolysis: Trend. Monitor renal function. Anemia: Stable. Trend. Transfuse if Hg < 7. Transaminitis: Likely related to rhabo. Trend. Altered mentation with prior dx of dementia Leukoctyosis, suspect reactive Low folate: Replace with FA 1 mg PO QD. Resolved: Acute kidney injury Chronic conditions: Hypertension, dyslipidemia, dementia I have reviewed the following absence management consultant notes: Vascular Sx note I have reviewed the results of the following tests: CBC, CMP, APTT, CPK. I have ordered the following tests: APTT I have discussed the care of this patient with the following independent historian: Discussed with son at bedside. I have independently interpreted the following test below: I have discussed the management of this patient with the following physician: This patient has a high risk of morbidity due to the following reasons: Heparin drip - intensive monitoring - APTT Objective - Vital Signs Vital signs: Vital Signs Temp 97.4 F L 01/10/23 08:00 Pulse 89 01/10/23 08:00 Resp 20 01/10/23 08:00 BP 189/77 01/10/23 08:00 Pulse Ox 98 01/10/23 08:00 FiO2 Intake & Output 01/09/23 01/10/23 01/10/23 18:59 06:59 18:59 Intake Total 1095.518 420.913 415.909 Output Total 800 855 0 Balance 295.518 -434.087 415.909 Weight 50.439 kg Intake: IV 1050 100 Sodium Chloride 0.9% 1, 1050 100 000 ml @ 200 mls/hr IV . Q5H [facility] Rx#:[id number] Intake, IV Titration 45.518 320.913 315.909 Amount Amiodarone 360 mg In 200 Dextrose 5% in Water 200 ml @ 1 MG/MIN 33.333 mls/ hr IV .Q6H [facility] Rx#: [id number] Amiodarone 450 mg In 241.116 51.668 Dextrose 5% in Water 250 ml @ 0.5 MG/MIN 16.667 mls/hr IV .Q15H [facility] Rx#: [id number] Heparin Sod,Pork in 0.45% 45.518 79.797 64.241 NaCl 25,000 unit In 0.45 % NaCl 1 250ml.bag @ 12 UNITS/KG/HR 6.264 mls/hr IV .Q24H [facility] Rx#: [id number] Oral 100 Output: Urine 800 855 0 Other: Voiding Method Bedpan Bedpan Bedpan # Voids 1 - Labs CBC & Chem 7: 01/10/23 07:02 01/10/23 07:02 Labs: Abnormal Lab Results - Last 24 Hours (Table) 01/09/23 01/09/23 01/09/23 Range/Units 05:45 10:50 19:01 WBC (3.8-10.6) k/uL RBC (3.80-5.40) m/uL Hgb (11.4-16.0) gm/dL Hct (34.0-46.0) % Neutrophils # (1.3-7.7) k/uL PT 12.6 H (9.0-12.0) sec INR 1.2 H (<1.2) APTT 47.3 H (22.0-30.0) sec Sodium (137-145) mmol/L BUN (7-17) mg/dL Creatinine (0.52-1.04) mg/dL Glucose (74-99) mg/dL Phosphorus (2.5-4.5) mg/dL AST (14-36) U/L ALT (4-34) U/L Alkaline Phosphatase (38-126) U/L Creatine Kinase 07178 H* 51710 H* (30-135) U/L Troponin I (0.000-0.034) ng/mL Total Protein (6.3-8.2) g/dL Albumin (3.5-5.0) g/dL Vitamin B12 1011.0 H (200.0-944.0) pg/mL Folate (4.40-31.00) ng/mL 01/09/23 01/09/23 01/09/23 Range/Units 19:01 19:01 19:01 WBC (3.8-10.6) k/uL RBC (3.80-5.40) m/uL Hgb (11.4-16.0) gm/dL Hct (34.0-46.0) % Neutrophils # (1.3-7.7) k/uL PT (9.0-12.0) sec INR (<1.2) APTT 37.8 H (22.0-30.0) sec Sodium (137-145) mmol/L BUN (7-17) mg/dL Creatinine (0.52-1.04) mg/dL Glucose (74-99) mg/dL Phosphorus (2.5-4.5) mg/dL AST (14-36) U/L ALT (4-34) U/L Alkaline Phosphatase (38-126) U/L Creatine Kinase (30-135) U/L Troponin I 0.301 H* (0.000-0.034) ng/mL Total Protein (6.3-8.2) g/dL Albumin (3.5-5.0) g/dL Vitamin B12 (200.0-944.0) pg/mL Folate 4.20 L (4.40-31.00) ng/mL 01/10/23 01/10/23 01/10/23 Range/Units 00:44 00:44 06:59 WBC (3.8-10.6) k/uL RBC (3.80-5.40) m/uL Hgb (11.4-16.0) gm/dL Hct (34.0-46.0) % Neutrophils # (1.3-7.7) k/uL PT (9.0-12.0) sec INR (<1.2) APTT 34.9 H 35.8 H (22.0-30.0) sec Sodium (137-145) mmol/L BUN (7-17) mg/dL Creatinine (0.52-1.04) mg/dL Glucose (74-99) mg/dL Phosphorus (2.5-4.5) mg/dL AST (14-36) U/L ALT (4-34) U/L Alkaline Phosphatase (38-126) U/L Creatine Kinase 69486 H* (30-135) U/L Troponin I (0.000-0.034) ng/mL Total Protein (6.3-8.2) g/dL Albumin (3.5-5.0) g/dL Vitamin B12 (200.0-944.0) pg/mL Folate (4.40-31.00) ng/mL 01/10/23 01/10/23 Range/Units 07:02 07:02 WBC 21.6 H (3.8-10.6) k/uL RBC 3.36 L (3.80-5.40) m/uL Hgb 10.5 L (11.4-16.0) gm/dL Hct 31.6 L (34.0-46.0) % Neutrophils # 19.6 H (1.3-7.7) k/uL PT (9.0-12.0) sec INR (<1.2) APTT (22.0-30.0) sec Sodium 134 L (137-145) mmol/L BUN 18 H (7-17) mg/dL Creatinine 0.45 L (0.52-1.04) mg/dL Glucose 122 H (74-99) mg/dL Phosphorus 2.3 L (2.5-4.5) mg/dL AST 348 H (14-36) U/L ALT 177 H (4-34) U/L Alkaline Phosphatase 136 H (38-126) U/L Creatine Kinase 07182 H* (30-135) U/L Troponin I (0.000-0.034) ng/mL Total Protein 5.9 L (6.3-8.2) g/dL Albumin 2.9 L (3.5-5.0) g/dL Vitamin B12 (200.0-944.0) pg/mL Folate (4.40-31.00) ng/mL
--- NOTE | 2023-01-10 14:24 | P.PN ---
Subjective This is an 82-year-old female patient with a past medical history significant for history of lower extremities PAD as well as hypertension and dyslipidemia. The patient is somewhat poor historian and she does have slight change in mental status and disorientation. We consulted to see the patient for further evaluation off abnormal EKG showing an anterior ST elevation myocardial infarction and the ST segment changes are massive. The patient presented to the emergency department after she fell with a questionable syncope. She injured her right great toe. She was brought by her boyfriend to the emergency department where workup was performed including computed tomography scan of the brain which showed no acute abnormalities. Subsequently she underwent an EKG which showed significant ST segment elevation anteriorly concerning for STEMI. Also the patient was found to have cold right foot. We don't know the duration of her foot coolness. The patient was taken emergently to the cardiac crime lab technician where she underwent an angiogram from the right radial approach and that showed mild nonobstructive coronary artery disease. I did not performed left heart catheterization on her because I was concerned about any thrombus in the LV cou ld be responsible for her cold foods as well as abnormal EKG with possible embolization which dissolved. Initially I accessed the left common femoral artery and its appeared that the patient underwent in the past aorta bifemoral bypass. The angiogram revealed a patent left common femoral artery but it seems that the wire was in the bypass to the left common femoral artery. She noted to have stenting either in her [place] left iliac arteries or in the left iliac's vein. It's hard to tell at this point. The procedure was performed from the right radial approach and the patient tolerated the procedure very well. The cath revealed only mild nonobstructive coronary artery disease. The patient will be transferred to the intensive care unit. I'm going to obtain CTA of the chest and abdomen and lower extremities just to rule out any evidence off dissection and also to assess the lower extremities arterial system. Vascular surgical consult we will be also obtained. Beside that the patient underwent a blood work showed stable hemoglobin was troponin is a slightly elevated and abnormal renal function and normal electrolytes. The liver function tests are elevated. Please note that the patient is alcoholic The examination is remarkable for stable vital signs beside elevated blood pressure consistent with a stage II hypertension and also distant heart sounds with clear breathing sounds bilaterally. 01/09 Seen and examined. Patient underwent heart catheterization yesterday with no obstructive disease. EKG has somewhat improved however mild persistent elevations. Echocardiogram ordered however has not been resulted. Repeat troponin also ordered however not resulted. Vascular surgery was consult that and CTA was performed with severe bilateral disease and occluded grafts. Her right lower extremity is cool however no open sores and denies any pain. Patient is somewhat confused however answers some questions appropriately. She did have episode of going into A. fib with RVR and amiodarone drip was started and she converted back to sinus rhythm. She also has been placed on a heparin drip. 01/10 Patient seen and examined. Some history is supplied by boyfriend who states she has had a decline over the last week or 2 and has not been eating as much. She is somewhat hypertensive blood pressures in the 150s and 160s. Amlodipine was given this morning. Lisinopril 5 mg twice a day has been given and we will increase to 10 mg twice a day. Echocardiogram shows ejection fraction 50-55%. She is still not answering many questions over denies any chest pain or pressure. Vascular surgery looking to perform angiogram possibly tomorrow. She remains on heparin drip however no recurrence of atrial fibrillation, remains on amiodarone 400 mg twice a day. Assessment Abnormal EKG concerning for ST elevation myocardial infarction. Mild nonobstructive coronary artery disease Cold right foot PAD with prior revascularization Change in mental status Significant history of alcohol abuse New onset paroxysmal Afib Altered mental status Plan Heart catheterization was performed and showed mild CAD only Blood pressure still mildly elevated and metoprolol was increased yesterday we will increase lisinopril. Continue with amiodarone 400 mg twice a day and decrease dose in 1 week Patient at increased risk given multiple comorbidities however reasonable risk for angiogram. Continue heparin drip until angiogram, peripheral vascular work performed and then likely transition to NOAC Objective - Vital Signs Vital signs: Vital Signs Temp 98.2 F 01/10/23 12:00 Pulse 84 01/10/23 12:00 Resp 8 L 01/10/23 13:00 BP 167/81 01/10/23 13:00 Pulse Ox 96 01/10/23 13:00 FiO2 Intake & Output 01/09/23 01/10/23 01/10/23 18:59 06:59 18:59 Intake Total 1095.518 420.913 415.909 Output Total 800 855 0 Balance 295.518 -434.087 415.909 Weight 50.439 kg Intake: IV 1050 100 Sodium Chloride 0.9% 1, 1050 100 000 ml @ 200 mls/hr IV . Q5H [facility] Rx#:[id number] Intake, IV Titration 45.518 320.913 315.909 Amount Amiodarone 360 mg In 200 Dextrose 5% in Water 200 ml @ 1 MG/MIN 33.333 mls/ hr IV .Q6H [facility] Rx#: [id number] Amiodarone 450 mg In 241.116 51.668 Dextrose 5% in Water 250 ml @ 0.5 MG/MIN 16.667 mls/hr IV .Q15H [facility] Rx#: [id number] Heparin Sod,Pork in 0.45% 45.518 79.797 64.241 NaCl 25,000 unit In 0.45 % NaCl 1 250ml.bag @ 12 UNITS/KG/HR 6.264 mls/hr IV .Q24H [facility] Rx#: [id number] Oral 100 Output: Urine 800 855 0 Other: Voiding Method Bedpan Bedpan Bedpan # Voids 1 - Labs CBC & Chem 7: 01/10/23 07:02 01/10/23 07:02 Labs: Abnormal Lab Results - Last 24 Hours (Table) 01/09/23 01/09/23 01/09/23 Range/Units 19:01 19:01 19:01 WBC (3.8-10.6) k/uL RBC (3.80-5.40) m/uL Hgb (11.4-16.0) gm/dL Hct (34.0-46.0) % Neutrophils # (1.3-7.7) k/uL APTT 37.8 H (22.0-30.0) sec Sodium (137-145) mmol/L BUN (7-17) mg/dL Creatinine (0.52-1.04) mg/dL Glucose (74-99) mg/dL Phosphorus (2.5-4.5) mg/dL AST (14-36) U/L ALT (4-34) U/L Alkaline Phosphatase (38-126) U/L Creatine Kinase 38850 H* (30-135) U/L Troponin I (0.000-0.034) ng/mL Total Protein (6.3-8.2) g/dL Albumin (3.5-5.0) g/dL Vitamin B12 1011.0 H (200.0-944.0) pg/mL Folate 4.20 L (4.40-31.00) ng/mL 01/09/23 01/10/23 01/10/23 Range/Units 19:01 00:44 00:44 WBC (3.8-10.6) k/uL RBC (3.80-5.40) m/uL Hgb (11.4-16.0) gm/dL Hct (34.0-46.0) % Neutrophils # (1.3-7.7) k/uL APTT 34.9 H (22.0-30.0) sec Sodium (137-145) mmol/L BUN (7-17) mg/dL Creatinine (0.52-1.04) mg/dL Glucose (74-99) mg/dL Phosphorus (2.5-4.5) mg/dL AST (14-36) U/L ALT (4-34) U/L Alkaline Phosphatase (38-126) U/L Creatine Kinase 57753 H* (30-135) U/L Troponin I 0.301 H* (0.000-0.034) ng/mL Total Protein (6.3-8.2) g/dL Albumin (3.5-5.0) g/dL Vitamin B12 (200.0-944.0) pg/mL Folate (4.40-31.00) ng/mL 01/10/23 01/10/23 01/10/23 Range/Units 06:59 07:02 07:02 WBC 21.6 H (3.8-10.6) k/uL RBC 3.36 L (3.80-5.40) m/uL Hgb 10.5 L (11.4-16.0) gm/dL Hct 31.6 L (34.0-46.0) % Neutrophils # 19.6 H (1.3-7.7) k/uL APTT 35.8 H (22.0-30.0) sec Sodium 134 L (137-145) mmol/L BUN 18 H (7-17) mg/dL Creatinine 0.45 L (0.52-1.04) mg/dL Glucose 122 H (74-99) mg/dL Phosphorus 2.3 L (2.5-4.5) mg/dL AST 348 H (14-36) U/L ALT 177 H (4-34) U/L Alkaline Phosphatase 136 H (38-126) U/L Creatine Kinase 51517 H* (30-135) U/L Troponin I (0.000-0.034) ng/mL Total Protein 5.9 L (6.3-8.2) g/dL Albumin 2.9 L (3.5-5.0) g/dL Vitamin B12 (200.0-944.0) pg/mL Folate (4.40-31.00) ng/mL
--- NOTE | 2023-01-10 15:54 | P.PN ---
Subjective Progress Note Date: 01/10/23 I am following up with the patient's and according to patient and her she is about the same. No acute neurological issues overnight. Objective - Vital Signs Vital signs: Vital Signs Temp 98.2 F 01/10/23 12:00 Pulse 80 01/10/23 14:00 Resp 16 01/10/23 14:00 BP 152/78 01/10/23 14:00 Pulse Ox 97 01/10/23 14:00 FiO2 Intake & Output 01/09/23 01/10/23 01/10/23 18:59 06:59 18:59 Intake Total 1095.518 420.913 415.909 Output Total 800 855 0 Balance 295.518 -434.087 415.909 Weight 50.439 kg Intake: IV 1050 100 Sodium Chloride 0.9% 1, 1050 100 000 ml @ 200 mls/hr IV . Q5H [facility] Rx#:[id number] Intake, IV Titration 45.518 320.913 315.909 Amount Amiodarone 360 mg In 200 Dextrose 5% in Water 200 ml @ 1 MG/MIN 33.333 mls/ hr IV .Q6H [facility] Rx#: [id number] Amiodarone 450 mg In 241.116 51.668 Dextrose 5% in Water 250 ml @ 0.5 MG/MIN 16.667 mls/hr IV .Q15H [facility] Rx#: [id number] Heparin Sod,Pork in 0.45% 45.518 79.797 64.241 NaCl 25,000 unit In 0.45 % NaCl 1 250ml.bag @ 12 UNITS/KG/HR 6.264 mls/hr IV .Q24H [facility] Rx#: [id number] Oral 100 Output: Urine 800 855 0 Other: Voiding Method Bedpan Bedpan Bedpan # Voids 1 - Exam General: Patient is lying in bed and is not in acute distress. Neuro: Limited because of her overall condition and has underlying dementia Patient is awake alert oriented to self. She is able to name her boyfriend correctly. That she is able to name the no aphasia from limited exam The pupils are round equal reactive to light. No facial weakness. No dysarthria. Motor the strength is hard to assess individual muscle strength because of her cooperation but is able to lift bilateral upper extremities lower extremities briefly above gravity. Some of the workup during his hospital visit consisted of: Patient has been afebrile so far. Initial white blood cell is 17.3 thousand and most recent is a 13.7. Sodium is 136 most creatinine is 140, glucose is 121, calcium is 9.6, AST is 3 out of 59 [place] [address] Ammonia level is less than 9 Vitamin B-12 is thousand and 11 Folate is 4.20 which is concerning deficient TSH is 1.780 CT of the head is reported as no acute intracranial process. CT cervical spine was reported as no evidence of cervical spine fracture. Mild multilevel degenerative disc disease. Carotid duplex is reported as less than 50% stenosis of bilateral carotid bifurcation. Arterial ultrasound lower extremities reported as severe left peripheral vascular disease. Limited evaluation the right unable to obtain pressure. Routine EEG is abnormal. The background slowing is suggestive of moderate encephalopathy. Otherwise there is no focal slowing, epileptiform discharges or seizure on the EEG 2-D echo was reported as normal left ventricle size and function. - Labs CBC & Chem 7: 01/10/23 07:02 01/10/23 07:02 Labs: Abnormal Lab Results - Last 24 Hours (Table) 01/09/23 01/09/23 01/09/23 Range/Units 19:01 19:01 19:01 WBC (3.8-10.6) k/uL RBC (3.80-5.40) m/uL Hgb (11.4-16.0) gm/dL Hct (34.0-46.0) % Neutrophils # (1.3-7.7) k/uL APTT 37.8 H (22.0-30.0) sec Sodium (137-145) mmol/L BUN (7-17) mg/dL Creatinine (0.52-1.04) mg/dL Glucose (74-99) mg/dL Phosphorus (2.5-4.5) mg/dL AST (14-36) U/L ALT (4-34) U/L Alkaline Phosphatase (38-126) U/L Creatine Kinase 10197 H* (30-135) U/L Troponin I (0.000-0.034) ng/mL Total Protein (6.3-8.2) g/dL Albumin (3.5-5.0) g/dL Vitamin B12 1011.0 H (200.0-944.0) pg/mL Folate 4.20 L (4.40-31.00) ng/mL 01/09/23 01/10/23 01/10/23 Range/Units 19:01 00:44 00:44 WBC (3.8-10.6) k/uL RBC (3.80-5.40) m/uL Hgb (11.4-16.0) gm/dL Hct (34.0-46.0) % Neutrophils # (1.3-7.7) k/uL APTT 34.9 H (22.0-30.0) sec Sodium (137-145) mmol/L BUN (7-17) mg/dL Creatinine (0.52-1.04) mg/dL Glucose (74-99) mg/dL Phosphorus (2.5-4.5) mg/dL AST (14-36) U/L ALT (4-34) U/L Alkaline Phosphatase (38-126) U/L Creatine Kinase 64511 H* (30-135) U/L Troponin I 0.301 H* (0.000-0.034) ng/mL Total Protein (6.3-8.2) g/dL Albumin (3.5-5.0) g/dL Vitamin B12 (200.0-944.0) pg/mL Folate (4.40-31.00) ng/mL 01/10/23 01/10/23 01/10/23 Range/Units 06:59 07:02 07:02 WBC 21.6 H (3.8-10.6) k/uL RBC 3.36 L (3.80-5.40) m/uL Hgb 10.5 L (11.4-16.0) gm/dL Hct 31.6 L (34.0-46.0) % Neutrophils # 19.6 H (1.3-7.7) k/uL APTT 35.8 H (22.0-30.0) sec Sodium 134 L (137-145) mmol/L BUN 18 H (7-17) mg/dL Creatinine 0.45 L (0.52-1.04) mg/dL Glucose 122 H (74-99) mg/dL Phosphorus 2.3 L (2.5-4.5) mg/dL AST 348 H (14-36) U/L ALT 177 H (4-34) U/L Alkaline Phosphatase 136 H (38-126) U/L Creatine Kinase 87037 H* (30-135) U/L Troponin I (0.000-0.034) ng/mL Total Protein 5.9 L (6.3-8.2) g/dL Albumin 2.9 L (3.5-5.0) g/dL Vitamin B12 (200.0-944.0) pg/mL Folate (4.40-31.00) ng/mL 01/10/23 Range/Units 14:34 WBC (3.8-10.6) k/uL RBC (3.80-5.40) m/uL Hgb (11.4-16.0) gm/dL Hct (34.0-46.0) % Neutrophils # (1.3-7.7) k/uL APTT 44.3 H (22.0-30.0) sec Sodium (137-145) mmol/L BUN (7-17) mg/dL Creatinine (0.52-1.04) mg/dL Glucose (74-99) mg/dL Phosphorus (2.5-4.5) mg/dL AST (14-36) U/L ALT (4-34) U/L Alkaline Phosphatase (38-126) U/L Creatine Kinase (30-135) U/L Troponin I (0.000-0.034) ng/mL Total Protein (6.3-8.2) g/dL Albumin (3.5-5.0) g/dL Vitamin B12 (200.0-944.0) pg/mL Folate (4.40-31.00) ng/mL Assessment and Plan Assessment: This is a 82-year-old woman with history of dementia, significant alcohol use and last was about a month ago who presented to the imaging department because of a fall. Per her friend he found her on the floor but no jerk in of any extremities, no foaming around the mouth and no history of seizures. She had a recent fall recently from the toilet. She was complaining of lower extremity pain and hip pain and that initially she was on opiates and that was discontinued and the was started on cyclobenzaprine then that was discontinued as well She is a patient has severe left peripheral vascular disease. She is found to have A. fib and is currently on heparin drip as well as a non-STEMI. Altered mental status is due to component of metabolic encephalopathy. Her AST ALT are elevated. As well as that has a large component of underlying dementia. Per boyfriend he feels she is back to baseline. Fall probably due to underlying peripheral vascular disease. Rhabdomyolysis seems due to underlying fall Folate deficiency History of dementia Peripheral vascular disease of lower extremity seems the patient has severe a ortic iliac occlusive disease secondary due to arterial insufficiency of bilateral lower extremity more found on the right than the left Atrial fibrillation on heparin drip and amiodarone Non-STEMI Significant alcohol use and the last alcohol drink was about a month ago. Plan: For the folate deficiency the patient started on folic acid 1 mg daily. CK levels to be continued to be monitored. I spoke with the primary attending yesterday and a statin that was started martine victoria this hospital admission not prior and the she was in agreement off holding it until the CK normalizes. Started the patient on thiamine 100 mg daily. Vascular surgery team is on board for the arterial insufficiency of the lower extremity and she is scheduled for a catheter directly angiogram tomorrow. We'll defer the rest of the medical management to the to cardiology and the vascular surgery team as well primary team. Plan discussed well with the patient's nurse. We'll follow up with the patient sporadically. Time with Patient: Less than 30
--- NOTE | 2023-01-10 17:24 | US ---
EXAMINATION TYPE: US venous doppler duplex LE RT DATE OF EXAM: 01/10/2023 4:43 PM COMPARISON: NONE CLINICAL INDICATION: Female, 82 years old with history of RLE pain; Hx of RLE pain. Pt had fall. On h eparin. Son states she started heparin while being in the hospital, but has been on blood thinners be fore. Hx of PE and DVT SIDE PERFORMED: Right TECHNIQUE: The lower extremity deep venous system is examined utilizing real time linear array sonog tylor with graded compression, doppler sonography and color-flow sonography. 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 IMPRESSION: 1. Deep venous thrombosis within the left lower extremity proximal femoral vein has echogenic materia l which is noncompressible compatible with deep venous thrombosis. The left common femoral vein could not be visualized. 2. Right lower extremity ultrasound negative for deep venous thrombosis.
[2023-01-10] MEDS: lisinopriL 10 MG TAB PO SCH ×2 (20:09→20:18)
[2023-01-11] MEDS: AMIODARONE 200 MG TAB PO SCH ×2 (08:32→21:01)
[2023-01-11] MEDS: ASPIRIN 81 MG PO SCH (08:33)
[2023-01-11] MEDS: FOLIC ACID 1 MG TAB PO SCH (08:33)
[2023-01-11] MEDS: THIAMINE 100 MG TAB PO SCH (08:33)
[2023-01-11] MEDS: lisinopriL 10 MG TAB PO SCH ×2 (08:33→21:01)
[2023-01-11] MEDS: METOPROLOL SUCCINATE (ER) 25 MG TAB.ER.24H PO SCH (08:33)
[2023-01-11 09:33] LABS: HCT 32.7 % (34.0-46.0); HGB 10.8 gm/dL (11.4-16.0); MCH 31.1 pg (25.0-35.0); MCV 94.5 fL (80.0-100.0); Platelet Count 428 k/uL (150-450); RBC 3.47 m/uL (3.80-5.40); RDW 13.8 % (11.5-15.5); WBC 22.9 k/uL (3.8-10.6)
--- NOTE | 2023-01-11 09:43 | P.PN ---
Subjective Progress Note Date: 01/11/23 Principal diagnosis: Right lower extremity ischemia Patient seen and examined in the ICU. She is now cardiac stepdown overflow. Patient was resting comfortably. It was discussed with her that she would be going down for catheter directed angiogram. Nursing reports that can sent was obtained from family. She does complain that her right lower extremity is painful. She is without any other complaints at this time. Venous duplex reports no DVT right lower extremity, liver deep vein thrombosis within the left lower extremity proximal femoral vein has echogenic material which is noncompressible compatible with deep venous thrombosis. Left common femoral vein cannot be visualized. Objective - Vital Signs Vital signs: Vital Signs Temp 97.9 F 01/11/23 08:00 Pulse 83 01/11/23 08:00 Resp 20 01/11/23 08:00 BP 157/66 01/11/23 08:00 Pulse Ox 96 01/11/23 08:00 FiO2 Intake & Output 01/10/23 01/11/23 01/11/23 18:59 06:59 18:59 Intake Total 415.909 Output Total 0 Balance 415.909 Intake: Intake, IV Titration 315.909 Amount Amiodarone 360 mg In 200 Dextrose 5% in Water 200 ml @ 1 MG/MIN 33.333 mls/ hr IV .Q6H [facility] Rx#: [id number] Amiodarone 450 mg In 51.668 Dextrose 5% in Water 250 ml @ 0.5 MG/MIN 16.667 mls/hr IV .Q15H [facility] Rx#: [id number] Heparin Sod,Pork in 0.45% 64.241 NaCl 25,000 unit In 0.45 % NaCl 1 250ml.bag @ 12 UNITS/KG/HR 6.264 mls/hr IV .Q24H [facility] Rx#: [id number] Oral 100 Output: Urine 0 Other: Voiding Method Bedpan Bedpan # Voids 1 - Exam General appearance: The patient is alert 1, appears in no acute distress. HET: Head is normocephalic and atraumatic. Neck: Supple. Heart: Regular. Lungs: Equal expansion, normal respiratory effort. Abdomen: Soft, nondistended. Extremities: Normal skin color and turgor. Right lower extremity warm to the touch, tender to palpation from thigh to ankle. Palpable right femoral pulse. Popliteal and PT signal present. LLE palpable DP pulse. Neurological: Pleasantly confused. Alert 1. - Labs CBC & Chem 7: 01/10/23 07:02 01/10/23 07:02 Labs: Abnormal Lab Results - Last 24 Hours (Table) 01/10/23 01/10/23 01/11/23 Range/Units 14:34 15:55 04:43 APTT 44.3 H 44.9 H 45.8 H (22.0-30.0) sec Assessment and Plan Assessment: 1. Severe aorto iliac occlusive disease with secondary arterial insufficiency of bilateral lower extremities, more pronounced on right than left 2. Atrial fibrillation with RVR on anticoagulation 3. History of tobacco abuse 4. Coronary artery disease status post cardiac catheterization 5. Rhabdomyolysis 6. Left lower extremity DVT Plan: CT findings reviewed independently by Dr. Solo. Right lower extremity venous duplex ordered and reviewed reporting left femoral DVT. Patient currently on anticoagulation. Plan for catheter directed angiogram today, heparin to be held hours prior to procedure. Further recommendations forthcoming based on angiogram findings. Of course will need cardiac clearance prior to any vascular surgical intervention and this will be discussed with cardiology. Carotid duplex reviewed with findings of less than 50% stenosis of the bilateral carotid bifurcations. On smoking cessation. Please obtain consent from legal guardian or family members. Continue medical management per primary medical team. We will continue to follow. The impression and plan of care has been dictated as directed. I performed a history and examination of this patient, discussed the same with the dictator. I agree with the dictator's note ,documented as a scribe. Any additional findings or plans will be noted.
[2023-01-11 09:54] LABS: African American GFR (CKD) >90 (>60 ml/min/1.73 sqM); Anion Gap 10 mmol/L; Blood Urea Nitrogen 16 mg/dL (7-17); Calcium 8.5 mg/dL (8.4-10.2); Carbon Dioxide 26 mmol/L (22-30); Chloride 98 mmol/L (98-107); Glucose 108 mg/dL (74-99); Non-African American GFR(CKD) 89 (>60 ml/min/1.73 sqM); Potassium 3.5 mmol/L (3.5-5.1); Sodium 134 mmol/L (137-145)
[2023-01-11] MEDS: SODIUM CHLORIDE 0.9% 1,000 ML IV SCH (10:15)
[2023-01-11 10:28] LABS: Creatine Kinase 10336 U/L (30-135)
[2023-01-11] MEDS ORDERED: IV FLUID CONTINUATION 1,000 ML IV ONE (13:10)
[2023-01-11] MEDS ORDERED: MIDAZOLAM 2 MG/2 ML VIAL IVP ONE (13:16)
[2023-01-11] MEDS: fentaNYL (PF) 50 MCG/ML 2 ML AMP IVP ONE ×3 (13:16→13:51)
[2023-01-11] MEDS ORDERED: LIDOCAINE 1% INJ 10MG/ML (20 ML MDV) SQ ONE (13:19)
[2023-01-11] MEDS ORDERED: ALTEPLASE 2 MG VIAL (CATHFLO) IA STA (13:49)
[2023-01-11] MEDS ORDERED: ALTEPLASE 2 MG VIAL (CATHFLO) IV STA (13:58)
[2023-01-11] MEDS ORDERED: ALTEPLASE 10 MG in SODIUM CHLORIDE 0.9% 90 ML IA ONE (14:00)
[2023-01-11] MEDS ORDERED: ALTEPLASE 2 MG VIAL (CATHFLO) IA ONE ×2 (14:01→14:06)
[2023-01-11] MEDS ORDERED: NITROGLYCERIN 1000MCG/10ML SYRINGE INTRAARTER ONE (14:02)
[2023-01-11] MEDS ORDERED: IOPAMIDOL-370 100ML BTL INJ ONE ×2 (14:23)
--- NOTE | 2023-01-11 14:49 | IR ---
EXAMINATION TYPE: IR angio abdominal w runoff DATE OF EXAM: 01/11/2023 COMPARISON: NONE HISTORY: Fluoroscopy time. Fluoroscopy was provided to the referring clinician.
--- NOTE | 2023-01-11 15:28 | P.PN ---
Subjective Progress Note Date: 01/11/23 Patient is an 82-year-old female with known dementia, peripheral arterial disease, hypertension, and hyperlipidemia who initially presented to the emergency room for falls and confusion. At arrival to the emergency department she was tachycardic with a pulse of 110 the remainder of her vitals were normal. Laboratory analysis was remarkable for white blood cell count 17.3, hemoglobin 11.2, platelets 476, sodium 136, carbon dioxide 20, BUN 68, creatinine 1.21, glucose 121, AST 359, ALT 165, troponin 0.821. Toe x-ray shows no evidence of acute trauma. Chest x-ray shows no acute process. CT head and cervical spine showed no acute intracranial process no evidence of cervical spine fracture but mild multi degenerative disc disease. In the emergency department she was not complaining of chest pain but EKG revealed possible ST segment elevated myocardial infarction. She was also found to have a cold right extremity. She therefore was taken emergently to clinical laboratory scientist. She was found to have mild coronary artery disease. She was subsequently transferred to the ICU. Consult was placed for vascular surgery. 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 She develoepd A fib wtih RVR and was started on heparin and amiodarone drip. 01/10 Patient was seen and examined. Patient reports no complaints. Pain well controlled. Son reports foot feels warmer and color is better. Currently on Heparin drip at 12 units/kg/hr. Started on Amiodarone 400 mg PO BID. Continued o n ASA and Metoprolol. Arterial duplex shows severe left PAD unable to comment on R.Carotid doppler shows < 50% stenosis of the bilateral carotid bifurcations. EEG shows moderate encephalopathy, no epileptiform dischages. CBC shows WBC count 21.6, Hg 10.6. CMP shows Na 134, BUN 18, Cr 0.45, glucose 122, Phos 2.3, AST 348, ALT 177, alk phos 136, albumin 2.9. CPK 34992. Vascular surgery plans for catheter directed angiogram tomorrow, will need to hold heparin 3 hours prior to angiogram, need Cardiology clearance. 01/11 Patient was seen and examined this morning. No new complaints. Plans for catheter directed angiogram later today. CBC shows WBC count 22.9, Hg 10.8. CMP shows Na 134, Cr 0.5, glucose 108. CPK [id number]. Vasc Duplex shows LLE DVT. Echo shows EF 50-55%, trace TR. APTT 45.8. Vital signs reviewed General: nontoxic, no distress, appears at stated age Cardiovascular: S1S2 reg, no murmur, no appreciable dorsalis pedis pulses bilaterally Lungs: CTA bilateral, no rhonchi, no rales, no accessory muscle use Ext: no gross muscle atrophy, no edema b/l lower extremities, no contractures Neuro: no focal neuro deficits Psych: Alert, oriented to self , appropriate affect Ischemic right lower extremity with history of severe peripheral arterial disease Elevated troponin, abnormal EKG A fib with RVR Rhabdomyolysis LLE DVT Anemia Transaminitis Altered mentation with prior dx of dementia Leukoctyosis, suspect reactive Low folate Resolved: Acute kidney injury Chronic conditions: Hypertension, dyslipidemia, dementia Based on my assessment of this patient, this patient meets a high complexity level of care. Patient has an acute diagnosis of ischemic RLE that poses a threat to life or bodily function. This is complicated by A-Fib with RVR, elevated troponins and rhabdomyolysis. Ischemic right lower extremity with history of severe peripheral arterial disease: ASA 81 mg PO QD. Metoprolol 12.5 mg PO QD. Heparin drip at 12 units/kg/hr. Telemetry monitoring. Vascular surgery on board. Elevated troponin, abnormal EKG: Status post cath. No obstructive disease. Echocardiogram as above. ASA and beta boris as above. Would benefit from statin after rhabdo resoloved. Cardiology on board. A fib with RVR: Amiodarone 400 mg PO BID. Heparin drip for AC. Rhabdomyolysis: Trend. Monitor renal function. LLE DVT: Heparin drip as above. AC on discharge. Anemia: Stable. Trend. Transfuse if Hg < 7. Transaminitis: Likely related to rhabo. Trend. Altered mentation with prior dx of dementia Leukoctyosis, suspect reactive Low folate: Replace with FA 1 mg PO QD. Resolved: Acute kidney injury Chronic conditions: Hypertension, dyslipidemia, dementia I have reviewed the following data center consultant notes: Vascular Sx note I have reviewed the results of the following tests: CBC, BMP, APTT, CPK. I have ordered the following tests: CBC. BMP. CPK I have discussed the care of this patient with the following independent historian: Discussed with son and RN at bedside. I have independently interpreted the following test below: I have discussed the management of this patient with the following physician: This patient has a high risk of morbidity due to the following reasons: Heparin drip - intensive monitoring - APTT Objective - Vital Signs Vital signs: Vital Signs Temp 98.0 F 01/11/23 12:03 Pulse 81 01/11/23 12:03 Resp 20 01/11/23 14:42 BP 182/72 01/11/23 14:39 Pulse Ox 100 01/11/23 14:39 FiO2 Intake & Output 01/10/23 01/11/23 01/11/23 18:59 06:59 18:59 Intake Total 403.649 4219 Output Total 0 0 Balance 477.050 8893 Intake: IV 650 Intake, IV Titration 315.909 425 Amount Amiodarone 360 mg In 200 Dextrose 5% in Water 200 ml @ 1 MG/MIN 33.333 mls/ hr IV .Q6H [facility] Rx#: [id number] Amiodarone 450 mg In 51.668 Dextrose 5% in Water 250 ml @ 0.5 MG/MIN 16.667 mls/hr IV .Q15H [facility] Rx#: [id number] Heparin Sod,Pork in 0.45% 64.241 250 NaCl 25,000 unit In 0.45 % NaCl 1 250ml.bag @ 12 UNITS/KG/HR 6.264 mls/hr IV .Q24H [facility] Rx#: [id number] Sodium Chloride 0.9% 1, 175 000 ml @ 75 mls/hr IV . [id number] [facility] Rx#:[id number] Oral 100 100 Output: Urine 0 0 Other: Voiding Method Bedpan Bedpan Bedpan # Voids 1 - Labs CBC & Chem 7: 01/11/23 09:18 01/11/23 09:18 Labs: Abnormal Lab Results - Last 24 Hours (Table) 01/10/23 01/10/23 01/11/23 Range/Units 14:34 15:55 04:43 WBC (3.8-10.6) k/uL RBC (3.80-5.40) m/uL Hgb (11.4-16.0) gm/dL Hct (34.0-46.0) % APTT 44.3 H 44.9 H 45.8 H (22.0-30.0) sec Sodium (137-145) mmol/L Creatinine (0.52-1.04) mg/dL Glucose (74-99) mg/dL Creatine Kinase (30-135) U/L 01/11/23 01/11/23 Range/Units 09:18 09:18 WBC 22.9 H (3.8-10.6) k/uL RBC 3.47 L (3.80-5.40) m/uL Hgb 10.8 L (11.4-16.0) gm/dL Hct 32.7 L (34.0-46.0) % APTT (22.0-30.0) sec Sodium 134 L (137-145) mmol/L Creatinine 0.50 L (0.52-1.04) mg/dL Glucose 108 H (74-99) mg/dL Creatine Kinase [address]69 H* (30-135) U/L
--- NOTE | 2023-01-11 16:00 | P.OP ---
Date of Procedure: 01/11/23 Description of Procedure: Preoperative diagnosis: Right leg pain Postoperative diagnosis: Same Procedure: Ultrasound-guided left radial artery access Aortogram with bilateral lower extremity runoff Surgeon: Inés John D.O. EBL: Less than 10 mL IV fluids: See records Urine output: Not measured Drains: None Complications: None immediately apparent Condition: Stable to recovery Operative indication and findings: Patient is an 82-year-old female with significant dementia and pain in her right lower extremity. Potentially had issues with falling last week. She presents today for angiogram to evaluate for reason for right lower extremity pain. Procedure in detail: [Patient was taken to the special suite and placed in supine position. The left upper extremity was prepped and draped in usual sterile fashion. Procedure was performed, all parties were in agreement. Using, THE RADIAL ARTERY WAS IDENTIFIED. THE SKIN OVERLYING WAS WAS ANESTHETIZED WITH 1% LIDOCAINE PLAIN. MICRO-ACCESS NEEDLE. Catheters and wires were used access the aorta. A pigtail catheter was placed in an angiogram was performed. The aorta appeared to have diffuse disease. Difficult images due to patient inability to follow commands as far as breath-holding. The visualized portions of the superior mesenteric artery and celiac are patent. Renal arteries appear patent. There is some evidence of mid aortic disease without any severe obvious iliac disease noted. Flow of contrast seems to be relatively brisk. There was brisk flow through the common femoral, superficial femoral and profunda arteries bilaterally without evidence of significant disease. On the left, the popliteal appears patent with a patent anterior tibial, tibial peroneal trunk, through the level of the midcalf. Difficult visualization beyond this due to waist of contrast. On the right, there is more atypical appearance at the popliteal level however appears to have adequate washing of contrast. Difficult to visualize the tibial vessels. Diminutive flow through the anterior tibial and tibial peroneal trunk but nonvisualized beyond. There is a portion of posterior tibial artery that reconstituted on imaging at the level of the ankle on hand injection. Due to the atypical appearance, 4 mg TPA was instilled along with nitro. The catheters and wires were then removed. The sheaths were removed and a TR band was placed. Patient will likely need intervention versus palliative/hospice care. Long discussion had with the patient's boyfriend who is at the bedside, phone call to the son pending. Options include hospice/palliative care, primary amputation, potential open thrombectomy versus femoral to posterior tibial bypass. Both surgical interventions would require general anesthesia and, with risks including cardiopulmonary as well as risk of injury to the vessel loss of limb or loss of life. Full and further discussions had and pending decisions. Per the boyfriend, patient has been relatively going downhill for the past month or so not eating and not doing a whole lot other than resting in bed more regular ly.
--- NOTE | 2023-01-11 17:48 | XR ---
EXAMINATION TYPE: XR Hip Complete RT DATE OF EXAM: 01/11/2023 5:18 PM INDICATION: Patient age:Female; 82 years old; Reason for study: fall, right hip pain; PHH. COMPARISON: None. TECHNIQUE: The eighth hip was examined in the frontal and lateral projections . FINDINGS: No evidence of any acute osseous pathology, joint dislocation, or soft tissue swelling. Con trast is demonstrated within the urinary bladder from prior angiogram. IMPRESSION: No acute osseous pathology.
--- NOTE | 2023-01-11 18:41 | P.PN ---
Subjective Progress Note Date: 01/11/23 This is an 82-year-old female patient with a past medical history significant for history of lower extremities PAD as well as hypertension and dyslipidemia. The patient is somewhat poor historian and she does have slight change in mental status and disorientation. We consulted to see the patient for further evaluation off abnormal EKG showing an anterior ST elevation myocardial infarction and the ST segment changes are massive. The patient presented to the emergency department after she fell with a questionable syncope. She injured her right great toe. She was brought by her boyfriend to the emergency department where workup was performed including computed tomography scan of the brain which showed no acute abnormalities. Subsequently she underwent an EKG which showed significant ST segment elevation anteriorly concerning for STEMI. Also the patient was found to have cold right foot. We don't know the duration of her foot coolness. The patient was taken emergently to the cardiac hatchery laborer where she underwent an angiogram from the right radial approach and that showed mild nonobstructive coronary artery disease. I did not performed left heart catheterization on her because I was concerned about any thrombus in the LV could be responsible for her cold foods as well as abnormal EKG with possible embolization which dissolved. Initially I accessed the left common femoral artery and its appeared that the patient underwent in the past aorta bifemoral bypass. The angiogram revealed a patent left common femoral artery but it seems that the wire was in the bypass to the left common femoral artery. She noted to have stenting either in her [place] left iliac arteries or in the left iliac's vein. It's hard to tell at this point. The procedure was performed from the right radial approach and the patient tolerated the procedure very well. The cath revealed only mild nonobstructive coronary artery disease. The patient will be transferred to the intensive care unit. I'm going to obtain CTA of the chest and abdomen and lower extremities just to rule out any evidence off d issection and also to assess the lower extremities arterial system. Vascular surgical consult we will be also obtained. Beside that the patient underwent a blood work showed stable hemoglobin was troponin is a slightly elevated and abnormal renal function and normal electrolytes. The liver function tests are elevated. Please note that the patient is alcoholic The examination is remarkable for stable vital signs beside elevated blood pressure consistent with a stage II hypertension and also distant heart sounds with clear breathing sounds bilaterally. 01/09 Seen and examined. Patient underwent heart catheterization yesterday with no obstructive disease. EKG has somewhat improved however mild persistent elevations. Echocardiogram ordered however has not been resulted. Repeat troponin also ordered however not resulted. Vascular surgery was consult that and CTA was performed with severe bilateral disease and occluded grafts. Her right lower extremity is cool however no open sores and denies any pain. Patient is somewhat confused however answers some questions appropriately. She did have episode of going into A. fib with RVR and amiodarone drip was started and she converted back to sinus rhythm. She also has been placed on a heparin drip. 01/10 Patient seen and examined. Some history is supplied by boyfriend who states she has had a decline over the last week or 2 and has not been eating as much. She is somewhat hypertensive blood pressures in the 150s and 160s. Amlodipine was given this morning. Lisinopril 5 mg twice a day has been given and we will increase to 10 mg twice a day. Echocardiogram shows ejection fraction 50-55%. She is still not answering many questions over denies any chest pain or pressure. Vascular surgery looking to perform angiogram possibly tomorrow. She remains on heparin drip however no recurrence of atrial fibrillation, remains on amiodarone 400 mg twice a day. 01/11 Patient's echocardiogram showed preserved LV systolic function with no major valvular abnormalities. Patient had a distal aortogram with runoff performed wh ich showed poor distal flow distal to the right popliteal artery. Patient complains of right mitchell pain. She had a Doppler done yesterday which showed concerns of possible DVT in left superficial femoral vein. She continues to be in sinus rhythm being on amiodarone. Assessment Abnormal EKG concerning for ST elevation myocardial infarction. Heart cath showed mild CAD only. Mild nonobstructive coronary artery disease Cold right foot PAD with prior revascularization. Aortogram showed poor flow distal to right poplitial artery. s/p 4 mg Alteplase Left femoral vein DVT, acute Change in mental status Significant history of alcohol abuse New onset paroxysmal Afib, currently sinus Altered mental status Plan Blood pressure is still elevated. Added amlodipine 5 mg daily. Continue lisinopril 20 mg and metoprolol 12.5 mg twice a day. Due to increase lisinopril if patient is still hypertensive. Continue with amiodarone 400 mg twice a day and decrease dose after patient received 7 days of amiodarone. Patient received alteplase today. Plan to start Eliquis 10 mg BID for 7 days. 5 mg BID after that for 3 months. After 3 months will transition to 2.5 mg BID. High dose of Eliquis even the patient is above 80 years of age and less than 60 kg because of DVT Objective - Vital Signs Vital signs: Vital Signs Temp 97.9 F 01/11/23 16:08 Pulse 71 01/11/23 16:08 Resp 20 01/11/23 16:08 BP 168/61 01/11/23 16:08 Pulse Ox 100 01/11/23 16:08 FiO2 Intake & Output 01/10/23 01/11/23 01/11/23 18:59 06:59 18:59 Intake Total 938.939 2025 Output Total 0 0 Balance 177.731 0943 Intake: IV 650 Intake, IV Titration 315.909 425 Amount Amiodarone 360 mg In 200 Dextrose 5% in Water 200 ml @ 1 MG/MIN 33.333 mls/ hr IV .Q6H [facility] Rx#: [id number] Amiodarone 450 mg In 51.668 Dextrose 5% in Water 250 ml @ 0.5 MG/MIN 16.667 mls/hr IV .Q15H [facility] Rx#: [id number] Heparin Sod,Pork in 0.45% 64.241 250 NaCl 25,000 unit In 0.45 % NaCl 1 250ml.bag @ 12 UNITS/KG/HR 6.264 mls/hr IV .Q24H [facility] Rx#: [id number] Sodium Chloride 0.9% 1, 175 000 ml @ 75 mls/hr IV . [id number] [facility] Rx#:[id number] Oral 100 100 Output: Urine 0 0 Other: Voiding Method Bedpan Bedpan Bedpan # Voids 1 1 - Labs CBC & Chem 7: 01/11/23 09:18 01/11/23 09:18 Labs: Abnormal Lab Results - Last 24 Hours (Table) 01/11/23 01/11/23 01/11/23 Range/Units 04:43 09:18 09:18 WBC 22.9 H (3.8-10.6) k/uL RBC 3.47 L (3.80-5.40) m/uL Hgb 10.8 L (11.4-16.0) gm/dL Hct 32.7 L (34.0-46.0) % APTT 45.8 H (22.0-30.0) sec Sodium 134 L (137-145) mmol/L Creatinine 0.50 L (0.52-1.04) mg/dL Glucose 108 H (74-99) mg/dL Creatine Kinase 18529 H* (30-135) U/L
[2023-01-11] MEDS: ATORVASTATIN 40 MG TAB PO SCH (21:00)
[2023-01-12] MEDS: SODIUM CHLORIDE 0.9% 1,000 ML IV SCH ×2 (03:27→07:55)
[2023-01-12] MEDS: ASPIRIN 81 MG PO SCH (07:55)
[2023-01-12] MEDS: METOPROLOL SUCCINATE (ER) 25 MG TAB.ER.24H PO SCH (07:55)
[2023-01-12] MEDS: lisinopriL 10 MG TAB PO SCH ×2 (07:55→21:28)
[2023-01-12] MEDS: FOLIC ACID 1 MG TAB PO SCH (07:55)
[2023-01-12] MEDS: AMIODARONE 200 MG TAB PO SCH ×2 (07:55→21:28)
[2023-01-12] MEDS: THIAMINE 100 MG TAB PO SCH (07:55)
[2023-01-12 10:59] LABS: HCT 30.1 % (34.0-46.0); HGB 9.9 gm/dL (11.4-16.0); MCH 30.9 pg (25.0-35.0); MCHC 32.9 g/dL (31.0-37.0); MCV 93.9 fL (80.0-100.0); Mean Platelet Volume 8.5; Platelet Count 391 k/uL (150-450); RBC 3.21 m/uL (3.80-5.40); RDW 13.9 % (11.5-15.5); WBC 15.2 k/uL (3.8-10.6)
[2023-01-12 11:20] LABS: African American GFR (CKD) >90 (>60 ml/min/1.73 sqM); Anion Gap 9 mmol/L; Blood Urea Nitrogen 13 mg/dL (7-17); Calcium 8.2 mg/dL (8.4-10.2); Carbon Dioxide 24 mmol/L (22-30); Chloride 100 mmol/L (98-107); Glucose 99 mg/dL (74-99); Non-African American GFR(CKD) >90 (>60 ml/min/1.73 sqM); Potassium 3.7 mmol/L (3.5-5.1); Sodium 133 mmol/L (137-145)
--- NOTE | 2023-01-12 11:24 | P.PN ---
Subjective Progress Note Date: 01/12/23 Principal diagnosis: Right lower extremity ischemia Patient seen and examined today as a follow-up. She has been removed from the ICU to the cardiac stepdown unit. Yesterday she underwent angiogram with access from left radial artery. Remains alert and oriented to self only. No acute changes through the night. Patient still grimaces with palpation to the right leg. Cardiology following, patient has been hypertensive and they now added amlodipine 5 mg daily and had increased lisinopril to 20 mg twice a day. Patient remains on amiodarone 400 mg twice a day as well as heparin drip. Objective - Vital Signs Vital signs: Vital Signs Temp 98.0 F 01/12/23 07:48 Pulse 87 01/12/23 07:49 Resp 16 01/12/23 07:49 BP 186/68 01/12/23 07:48 Pulse Ox 98 01/12/23 07:48 FiO2 Intake & Output 01/11/23 01/12/23 01/12/23 18:59 06:59 18:59 Intake Total 1175 300 Output Total 0 Balance 1175 300 Intake: IV 650 Intake, IV Titration 425 Amount Heparin Sod,Pork in 0.45% 250 NaCl 25,000 unit In 0.45 % NaCl 1 250ml.bag @ 12 UNITS/KG/HR 6.264 mls/hr IV .Q24H [facility] Rx#: [id number] Sodium Chloride 0.9% 1, 175 000 ml @ 75 mls/hr IV . [id number] [facility] Rx#:[id number] Oral 100 300 Output: Urine 0 Other: Voiding Method Bedpan Bedpan Bedpan Diaper Diaper External Catheter External Catheter # Voids 1 1 - Exam General appearance: The patient is alert 1, appears in no acute distress. HET: Head is normocephalic and atraumatic. Neck: Supple. Heart: Regular. Lungs: Equal expansion, normal respiratory effort. Abdomen: Soft, nondistended. Extremities: Normal skin color and turgor. Left wrist without any bleeding, hematoma. Right lower extremity warm to the touch, tender to palpation from thigh to ankle. Palpable right femoral pulse. Popliteal and PT signal present. LLE palpable DP pulse. Neurological: Pleasantly confused. Alert 1. - Labs CBC & Chem 7: 01/12/23 10:35 01/11/23 09:18 Labs: Abnormal Lab Results - Last 24 Hours (Table) 01/11/23 Range/Units 09:18 Sodium 134 L (137-145) mmol/L Creatinine 0.50 L (0.52-1.04) mg/dL Glucose 108 H (74-99) mg/dL Creatine Kinase 95275 H* (30-135) U/L Assessment and Plan Assessment: 1. Severe aorto iliac occlusive disease with secondary arterial insufficiency of bilateral lower extremities, more pronounced on right than left. Right lower extremity severe peripheral arterial disease. 2. Atrial fibrillation with RVR on anticoagulation 3. History of tobacco abuse 4. Coronary artery disease status post cardiac catheterization 5. Rhabdomyolysis 6. Left lower extremity DVT 8. Dementia Plan: Patient is status post lower extremity angiogram with findings of severe peripheral arterial disease of the right lower extremity. Please see Dr. John's operative note regarding recommendation and discussion of care moving forward on this patient. Patient's son Naif Hector as listed as medical decision-maker for [facility]isa. He has been unable to be reached several times at number provided [phone]. Patient's granddaughter who is also listed as next of kin Nancy Farfan was called and given update on grandmother's status and possible recommendations moving forward as we are unable to contact patient's son. Nancy did state that she would like to be medical decision maker, this was discussed with case management who will look further into the case but has notified us that as of now the son is next of kin and medical decision maker. Will discuss with cardiology whether patient would be candidate to undergo anesthesia for potential open thrombectomy versus femoral to posterior tibial bypass, amputation of right lower extremity also is option. Also discussed due to patient's declining health status and comorbidities consider possible hospice/palliative care versus aggressive surgical intervention due to risk of cardiopulmonary injury and risk of injury to vessel loss of limb or life. We will continue to try to reach son to move forward with patient care. Continue heparin drip for now. The impression and plan of care has been dictated as directed. Dr. Garcia I performed a history and examination of this patient, discussed the same with the dictator. I agree with the dictator's note ,documented as a scribe. Any additional findings or plans will be noted.
[2023-01-12 12:06] LABS: Creatine Kinase 6239 U/L (30-135)
--- NOTE | 2023-01-12 13:04 | P.PN ---
Subjective Progress Note Date: 01/12/23 Patient is an 82-year-old female with known dementia, peripheral arterial disease, hypertension, and hyperlipidemia who initially presented to the emergency room for falls and confusion. At arrival to the emergency department she was tachycardic with a pulse of 110 the remainder of her vitals were normal. Laboratory analysis was remarkable for white blood cell count 17.3, hemoglobin 11.2, platelets 476, sodium 136, carbon dioxide 20, BUN 68, creatinine 1.21, glucose 121, AST 359, ALT 165, troponin 0.821. Toe x-ray shows no evidence of acute trauma. Chest x-ray shows no acute process. CT head and cervical spine showed no acute intracranial process no evidence of cervical spine fracture but mild multi degenerative disc disease. In the emergency department she was not complaining of chest pain but EKG revealed possible ST segment elevated myocardial infarction. She was also found to have a cold right extremity. She therefore was taken emergently to optical laboratory manager. She was found to have mild coronary artery disease. She was subsequently transferred to the ICU. Consult was placed for vascular surgery. 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 She develoepd A fib wtih RVR and was started on heparin and amiodarone drip. 01/10 Patient was seen and examined. Patient reports no complaints. Pain well controlled. Son reports foot feels warmer and color is better. Currently on Heparin drip at 12 units/kg/hr. Started on Amiodarone 400 mg PO BID. Continued o n ASA and Metoprolol. Arterial duplex shows severe left PAD unable to comment on R.Carotid doppler shows < 50% stenosis of the bilateral carotid bifurcations. EEG shows moderate encephalopathy, no epileptiform dischages. CBC shows WBC count 21.6, Hg 10.6. CMP shows Na 134, BUN 18, Cr 0.45, glucose 122, Phos 2.3, AST 348, ALT 177, alk phos 136, albumin 2.9. CPK 13883. Vascular surgery plans for catheter directed angiogram tomorrow, will need to hold heparin 3 hours prior to angiogram, need Cardiology clearance. 01/11 Patient was seen and examined this morning. No new complaints. Plans for catheter directed angiogram later today. CBC shows WBC count 22.9, Hg 10.8. CMP shows Na 134, Cr 0.5, glucose 108. CPK 68515. Vasc Duplex shows LLE DVT. Echo shows EF 50-55%, trace TR. APTT 45.8. 01/11 Patient was seen and examined. She reports moderate pain in her RLE. Angiogram done yesterday which showed severe CAD on the RLE vasculature. Recommendations include thrombectomy versus femoral to posterior tibial bypass versus palliative care. Her son Naif is the DPOA who is unreliable and out of state, multiple attempts to call him today and yesterday have gone unanswered. Risk management OK for granddaughter to be the decision maker. She has deferred to Jer[place]ie to apply for guardianship. CBC shows WBC 15.2, Hg 9.9. BMP shows Na 133, Cr 0.42, Ca 8.2. CPK 6239. Vital signs reviewed General: nontoxic, no distress, appears at stated age Cardiovascular: S1S2 reg, no murmur, no appreciable dorsalis pedis pulses bilaterally Lungs: CTA bilateral, no rhonchi, no rales, no accessory muscle use Ext: no gross muscle atrophy, no edema b/l lower extremities, no contractures Neuro: no focal neuro deficits Psych: Alert, oriented to self , appropriate affect Ischemic right lower extremity with history of severe peripheral arterial disease Elevated troponin, abnormal EKG A fib with RVR Rhabdomyolysis LLE DVT Anemia Transaminitis Altered mentation with prior dx of dementia Leukoctyosis, suspect reactive Low folate Resolved: Acute kidney injury Chronic conditions: Hypertension, dyslipidemia, dementia Based on my assessment of this patient, this patient meets a high complexity level of care. Patient has an acute diagnosis of ischemic RLE that poses a threat to life or bodily function. This is complicated by A-Fib with RVR, elevated troponins and rhabdomyolysis. Ischemic right lower extremity with history of severe peripheral arterial disease: ASA 81 mg PO QD. Metoprolol 12.5 mg PO QD. Heparin drip at 12 units/kg/hr. Telemetry monitoring. Vascular surgery on board. Elevated troponin, abnormal EKG: Status post cath. No obstructive disease. Echocardiogram as above. ASA and beta boris as above. Would benefit from statin after rhabdo resoloved. Cardiology on board. A fib with RVR: Amiodarone 400 mg PO BID. Heparin drip for AC. Rhabdomyolysis: Trend. Monitor renal function. LLE DVT: Heparin drip as above. AC on discharge. Anemia: Stable. Trend. Transfuse if Hg < 7. Transaminitis: Likely related to rhabo. Trend. Altered mentation with prior dx of dementia Leukoctyosis, suspect reactive Low folate: Replace with FA 1 mg PO QD. Resolved: Acute kidney injury Chronic conditions: Hypertension, dyslipidemia, dementia I have reviewed the following internet sales consultant notes: Vascular Sx note I have reviewed the results of the following tests: CBC, BMP, CPK. I have ordered the following tests: CBC. BMP. I have discussed the care of this patient with the following independent historian: Discussed with son and RN at bedside. I have independently interpreted the following test below: I have discussed the management of this patient with the following physician: This patient has a high risk of morbidity due to the following reasons: Heparin drip - intensive monitoring - APTT Objective - Vital Signs Vital signs: Vital Signs Temp 98.0 F 01/12/23 12:50 Pulse 85 01/12/23 12:50 Resp 16 01/12/23 12:50 BP 191/66 01/12/23 12:50 Pulse Ox 99 01/12/23 12:50 FiO2 Intake & Output 01/11/23 01/12/23 01/12/23 18:59 06:59 18:59 Intake Total 1175 300 Output Total 0 Balance 1175 300 Intake: IV 650 Intake, IV Titration 425 Amount Heparin Sod,Pork in 0.45% 250 NaCl 25,000 unit In 0.45 % NaCl 1 250ml.bag @ 12 UNITS/KG/HR 6.264 mls/hr IV .Q24H [facility] Rx#: [id number] Sodium Chloride 0.9% 1, 175 000 ml @ 75 mls/hr IV . [id number] [facility] Rx#:[id number] Oral 100 300 Output: Urine 0 Other: Voiding Method Bedpan Bedpan Bedpan Diaper Diaper External Catheter External Catheter # Voids 1 1 - Labs CBC & Chem 7: 01/12/23 10:35 01/12/23 10:35 Labs: Abnormal Lab Results - Last 24 Hours (Table) 01/12/23 01/12/23 Range/Units 10:35 10:35 WBC 15.2 H (3.8-10.6) k/uL RBC 3.21 L (3.80-5.40) m/uL Hgb 9.9 L (11.4-16.0) gm/dL Hct 30.1 L (34.0-46.0) % Sodium 133 L (137-145) mmol/L Creatinine 0.42 L (0.52-1.04) mg/dL Calcium 8.2 L (8.4-10.2) mg/dL Creatine Kinase 6239 H* (30-135) U/L
--- NOTE | 2023-01-12 13:30 | P.PN ---
Subjective Progress Note Date: 01/12/23 I am following-up with patient and per her boyfriend she is at baseline mentation becerril. Objective - Vital Signs Vital signs: Vital Signs Temp 98.0 F 01/12/23 12:50 Pulse 85 01/12/23 12:50 Resp 16 01/12/23 12:50 BP 191/66 01/12/23 12:50 Pulse Ox 99 01/12/23 12:50 FiO2 Intake & Output 01/11/23 01/12/23 01/12/23 18:59 06:59 18:59 Intake Total 1175 300 Output Total 0 Balance 1175 300 Intake: IV 650 Intake, IV Titration 425 Amount Heparin Sod,Pork in 0.45% 250 NaCl 25,000 unit In 0.45 % NaCl 1 250ml.bag @ 12 UNITS/KG/HR 6.264 mls/hr IV .Q24H [facility] Rx#: [id number] Sodium Chloride 0.9% 1, 175 000 ml @ 75 mls/hr IV . [id number] [facility] Rx#:[id number] Oral 100 300 Output: Urine 0 Other: Voiding Method Bedpan Bedpan Bedpan Diaper Diaper External Catheter External Catheter # Voids 1 1 - Exam General: Patient is lying in bed and is not in acute distress. Neuro: Limited because of her overall condition and has underlying dementia Patient is awake alert oriented to self and place. She is able to name her boyfriend correctly. The pupils are round equal reactive to light. No facial weakness. No dysarthria. Motor the strength is hard to assess individual muscle strength because of her cooperation but is able to lift bilateral upper extremities and lower extremities briefly above gravity. Some of the workup during his hospital visit consisted of: Patient has been afebrile so far. Initial white blood cell is 17.3 thousand and most recent is a 13.7. Sodium is 136 most creatinine is 140, glucose is 121, calcium is 9.6, AST is 3 out of 59 [place] [address] Ammonia level is less than 9 Vitamin B-12 is thousand and 11 Folate is 4.20 which is concerning deficient TSH is 1.780 CT of the head is reported as no acute intracranial process. CT cervical spine was reported as no evidence of cervical spine fracture. Mild multilevel degenerative disc disease. Carotid duplex is reported as less than 50% stenosis of bilateral carotid bifurcation. Arterial ultrasound lower extremities reported as severe left peripheral vascular disease. Limited evaluation the right unable to obtain pressure. Routine EEG is abnormal. The background slowing is suggestive of moderate encephalopathy. Otherwise there is no focal slowing, epileptiform discharges or seizure on the EEG 2-D echo was reported as normal left ventricle size and function. - Labs CBC & Chem 7: 01/12/23 10:35 01/12/23 10:35 Labs: Abnormal Lab Results - Last 24 Hours (Table) 01/12/23 01/12/23 Range/Units 10:35 10:35 WBC 15.2 H (3.8-10.6) k/uL RBC 3.21 L (3.80-5.40) m/uL Hgb 9.9 L (11.4-16.0) gm/dL Hct 30.1 L (34.0-46.0) % Sodium 133 L (137-145) mmol/L Creatinine 0.42 L (0.52-1.04) mg/dL Calcium 8.2 L (8.4-10.2) mg/dL Creatine Kinase 6239 H* (30-135) U/L Assessment and Plan Assessment: This is a 82-year-old woman with history of dementia, significant alcohol use and last was about a month ago who presented to the imaging department because of a fall. Per her friend he found her on the floor but no jerk in of any extremities, no foaming around the mouth and no history of seizures. She had a recent fall recently from the toilet. She was complaining of lower extremity pain and hip pain and that initially she was on opiates and that was discontinued and the was started on cyclobenzaprine then that was discontinued as well She is a patient has severe left peripheral vascular disease. She is found to have A. fib and is currently on heparin drip as well as a non-STEMI. Altered mental status is due to component of metabolic encephalopathy. Her AST ALT are elevated. As well as that has a large component of underlying dementia. Per boyfriend he feels she is back to baseline. Fall probably due to underlying peripheral vascular disease. Rhabdomyolysis seems due to underlying fall Folate deficiency History of dementia Peripheral vascular disease of lower extremity seems the patient has severe aortic iliac occlusive disease secondary due to arterial insufficiency of bilateral lower extremity more found on the right than the left Atrial fibrillation on heparin drip and amiodarone Non-STEMI Significant alcohol use and the last alcohol drink was about a month ago. Plan: For the folate deficiency the patient started on folic acid 1 mg daily. CK levels to be continued to be monitored. It is trending down. I spoke with the primary attending yesterday and a statin that was started during this hospital admission not prior and the she was in agreement off holding it until the CK normalizes. Started the patient on thiamine 100 mg daily. Vascular surgery team is on board for the arterial insufficiency of the lower extremity. Seems the patient has severe aortic iliac occlusive disease with arterial insufficiency of bilateral lower extremity more pronounced on the right than the left with right lower extremity severe peripheral vascular arterial disease. Patient had a lower extremity angiogram with finding of severe pe ripheral arterial disease of the right lower extremity. We'll defer the rest of the medical management to the to cardiology and the vascular surgery team as well primary team. Plan discussed well with the patient's boyfriend was at bedside and the primary team There is no further neurological workup. Please notify neurology team if any further concerns. Time with Patient: Less than 30
[2023-01-12 14:23] VITALS: BMI 18.5
[2023-01-12] MEDS: ACETAMINOPHEN TAB 325 MG TAB PO PRN (14:28)
--- NOTE | 2023-01-12 17:45 | P.PN ---
Subjective Progress Note Date: 01/12/23 This is an 82-year-old female patient with a past medical history significant for history of lower extremities PAD as well as hypertension and dyslipidemia. The patient is somewhat poor historian and she does have slight change in mental status and disorientation. We consulted to see the patient for further evaluation off abnormal EKG showing an anterior ST elevation myocardial infarction and the ST segment changes are massive. The patient presented to the emergency department after she fell with a questionable syncope. She injured her right great toe. She was brought by her boyfriend to the emergency department where workup was performed including computed tomography scan of the brain which showed no acute abnormalities. Subsequently she underwent an EKG which showed significant ST segment elevation anteriorly concerning for STEMI. Also the patient was found to have cold right foot. We don't know the duration of her foot coolness. The patient was taken emergently to the cardiac laboratory director where she underwent an angiogram from the right radial approach and that showed mild nonobstructive coronary artery disease. I did not performed left heart catheterization on her because I was concerned about any thrombus in the LV could be responsible for her cold foods as well as abnormal EKG with possible embolization which dissolved. Initially I accessed the left common femoral artery and its appeared that the patient underwent in the past aorta bifemoral bypass. The angiogram revealed a patent left common femoral artery but it seems that the wire was in the bypass to the left common femoral artery. She noted to have stenting either in her [place] left iliac arteries or in the left iliac's vein. It's hard to tell at this point. The procedure was performed from the right radial approach and the patient tolerated the procedure very well. The cath revealed only mild nonobstructive coronary artery disease. The patient will be transferred to the intensive care unit. I'm going to obtain CTA of the chest and abdomen and lower extremities just to rule out any evidence off d issection and also to assess the lower extremities arterial system. Vascular surgical consult we will be also obtained. Beside that the patient underwent a blood work showed stable hemoglobin was troponin is a slightly elevated and abnormal renal function and normal electrolytes. The liver function tests are elevated. Please note that the patient is alcoholic The examination is remarkable for stable vital signs beside elevated blood pressure consistent with a stage II hypertension and also distant heart sounds with clear breathing sounds bilaterally. 01/09 Seen and examined. Patient underwent heart catheterization yesterday with no obstructive disease. EKG has somewhat improved however mild persistent elevations. Echocardiogram ordered however has not been resulted. Repeat troponin also ordered however not resulted. Vascular surgery was consult that and CTA was performed with severe bilateral disease and occluded grafts. Her right lower extremity is cool however no open sores and denies any pain. Patient is somewhat confused however answers some questions appropriately. She did have episode of going into A. fib with RVR and amiodarone drip was started and she converted back to sinus rhythm. She also has been placed on a heparin drip. 01/10 Patient seen and examined. Some history is supplied by boyfriend who states she has had a decline over the last week or 2 and has not been eating as much. She is somewhat hypertensive blood pressures in the 150s and 160s. Amlodipine was given this morning. Lisinopril 5 mg twice a day has been given and we will increase to 10 mg twice a day. Echocardiogram shows ejection fraction 50-55%. She is still not answering many questions over denies any chest pain or pressure. Vascular surgery looking to perform angiogram possibly tomorrow. She remains on heparin drip however no recurrence of atrial fibrillation, remains on amiodarone 400 mg twice a day. 01/11 Patient's echocardiogram showed preserved LV systolic function with no major valvular abnormalities. Patient had a distal aortogram with runoff performed wh ich showed poor distal flow distal to the right popliteal artery. Patient complains of right mitchell pain. She had a Doppler done yesterday which showed concerns of possible DVT in left superficial femoral vein. She continues to be in sinus rhythm being on amiodarone. 01/12 Seen and examined at bedside this a.m. Patient denies having any active chest pain chest pressure. She continues to complain of right lower extremity pain but it is better as compared to yesterday Assessment Abnormal EKG concerning for ST elevation myocardial infarction. Heart cath showed mild CAD only. Mild nonobstructive coronary artery disease Cold right foot PAD with prior revascularization. Aortogram showed poor flow distal to right poplitial artery. s/p 4 mg Alteplase Left femoral vein DVT, acute Change in mental status. Normal workup as per neurology team Significant history of alcohol abuse New onset paroxysmal Afib, currently sinus Altered mental status Plan Continue amlodipine 5 mg daily. Continue lisinopril 20 mg and metoprolol 12.5 mg twice a day. If patient is hypertensive, next step will be to increase lisinopril if patient is still hypertensive. Continue with amiodarone 400 mg twice a day and decrease dose after patient received 7 days of amiodarone. Patient received alteplase today. Plan to start Eliquis 10 mg BID for 7 days. 5 mg BID after that for 3 months. After 3 months will transition to 2.5 mg BID. High dose of Eliquis even the patient is above 78 years of age and less than 60 kg because of DVT Further detailed discussion that I had with the patient, it seems that patient and patient's caregiver is not interested in having the patient undergo an U basilar procedure at this time. They are thinking more of a palliative care. They are thinking palliation because of patient's overall peak status, low- weight and frailty. If patient undergoes surgery, she will be at moderate risk for a high-risk procedure from a cardiac vascular standpoint. Objective - Vital Signs Vital signs: Vital Signs Temp 98.3 F 01/12/23 17:22 Pulse 77 01/12/23 17:22 Resp 16 01/12/23 17:22 BP 178/67 01/12/23 17:22 Pulse Ox 99 01/12/23 17:22 FiO2 Intake & Output 01/11/23 01/12/23 01/12/23 18:59 06:59 18:59 Intake Total 1175 300 300 Output Total 0 200 Balance 1175 300 100 Weight 50.439 kg Intake: IV 650 Intake, IV Titration 425 Amount Heparin Sod,Pork in 0.45% 250 NaCl 25,000 unit In 0.45 % NaCl 1 250ml.bag @ 12 UNITS/KG/HR 6.264 mls/hr IV .Q24H [facility] Rx#: [id number] Sodium Chloride 0.9% 1, 175 000 ml @ 75 mls/hr IV . [id number] [facility] Rx#:[id number] Oral 100 300 300 Output: Urine 0 200 Other: Voiding Method Bedpan Bedpan Bedpan Diaper Diaper External Catheter External Catheter # Voids 1 1 - Labs CBC & Chem 7: 01/12/23 10:35 01/12/23 10:35 Labs: Abnormal Lab Results - Last 24 Hours (Table) 01/12/23 01/12/23 Range/Units 10:35 10:35 WBC 15.2 H (3.8-10.6) k/uL RBC 3.21 L (3.80-5.40) m/uL Hgb 9.9 L (11.4-16.0) gm/dL Hct 30.1 L (34.0-46.0) % Sodium 133 L (137-145) mmol/L Creatinine 0.42 L (0.52-1.04) mg/dL Calcium 8.2 L (8.4-10.2) mg/dL Creatine Kinase 6239 H* (30-135) U/L
[2023-01-12] MEDS: HEPARIN SOD,PORK IN 0.45% NACL 25,000 UNIT in 0.45% NACL 1 250ML.BAG IV SCH (21:25)
[2023-01-12] MEDS: ATORVASTATIN 40 MG TAB PO SCH (21:28)
[2023-01-12] MEDS ORDERED: HEPARIN SODIUM 1,000 UN/ML (10ML VL) IV PRN (21:35)
[2023-01-12] MEDS ORDERED: HEPARIN SODIUM 1,000 UN/ML (10ML VL) IV ONE (21:35)
[2023-01-12] MEDS ORDERED: HEPARIN SOD,PORK IN 0.45% NACL 25,000 UNIT in 0.45% NACL 1 250ML.BAG IV SCH (22:00)
[2023-01-12 22:34] LABS: INR 1.1 (<1.2)
[2023-01-12 22:35] LABS: Partial Thromboplastin Time 25.4 sec (22.0-30.0)
[2023-01-12 22:44] LABS: Basophils # (A) 0.1 k/uL (0-0.2); Basophils % (A) 0 %; Eosinophils # (A) 0.1 k/uL (0-0.7); Eosinophils % (A) 1 %; HCT 32.6 % (34.0-46.0); HGB 10.5 gm/dL (11.4-16.0); Hypochromasia Moderate; Lymphocytes % (A) 7 %; MCH 31.3 pg (25.0-35.0); MCHC 32.1 g/dL (31.0-37.0); MCV 97.7 fL (80.0-100.0); Mean Platelet Volume 8.3; Monocytes # (A) 0.8 k/uL (0-1.0); Monocytes % (A) 5 %; Neutrophils # (A) 13.3 k/uL (1.3-7.7); Neutrophils % (A) 86 %; Platelet Count 451 k/uL (150-450); RBC 3.34 m/uL (3.80-5.40); RDW 13.8 % (11.5-15.5); WBC 15.4 k/uL (3.8-10.6)
[2023-01-13 04:40] LABS: Basophils % (A) 0 %; Eosinophils # (A) 0.1 k/uL (0-0.7); Eosinophils % (A) 1 %; HCT 29.2 % (34.0-46.0); HGB 9.6 gm/dL (11.4-16.0); Lymphocytes # (A) 0.9 k/uL (1.0-4.8); Lymphocytes % (A) 7 %; MCH 30.7 pg (25.0-35.0); MCHC 32.8 g/dL (31.0-37.0); MCV 93.3 fL (80.0-100.0); Mean Platelet Volume 8.7; Monocytes # (A) 0.7 k/uL (0-1.0); Monocytes % (A) 6 %; Neutrophils # (A) 10.4 k/uL (1.3-7.7); Neutrophils % (A) 85 %; Platelet Count 423 k/uL (150-450); RBC 3.12 m/uL (3.80-5.40); RDW 13.8 % (11.5-15.5); WBC 12.3 k/uL (3.8-10.6)
[2023-01-13] MEDS: SODIUM CHLORIDE 0.9% 1,000 ML IV SCH ×2 (04:45→18:36)
[2023-01-13] MEDS: ASPIRIN 81 MG PO SCH (09:13)
[2023-01-13] MEDS: AMIODARONE 200 MG TAB PO SCH ×2 (09:13→21:14)
[2023-01-13] MEDS: FOLIC ACID 1 MG TAB PO SCH (09:13)
[2023-01-13] MEDS: METOPROLOL SUCCINATE (ER) 25 MG TAB.ER.24H PO SCH (09:13)
[2023-01-13] MEDS: THIAMINE 100 MG TAB PO SCH (09:14)
[2023-01-13] MEDS: lisinopriL 10 MG TAB PO SCH ×2 (09:14→21:14)
[2023-01-13 10:03] LABS: INR 1.2 (<1.2)
[2023-01-13 11:33] LABS: African American GFR (CKD) >90 (>60 ml/min/1.73 sqM); Anion Gap 10 mmol/L; Blood Urea Nitrogen 13 mg/dL (7-17); Calcium 8.3 mg/dL (8.4-10.2); Carbon Dioxide 23 mmol/L (22-30); Chloride 100 mmol/L (98-107); Glucose 98 mg/dL (74-99); Non-African American GFR(CKD) >90 (>60 ml/min/1.73 sqM); Potassium 3.8 mmol/L (3.5-5.1); Sodium 133 mmol/L (137-145)
--- NOTE | 2023-01-13 12:03 | P.PN ---
Subjective Progress Note Date: 01/13/23 Patient is an 82-year-old female with known dementia, peripheral arterial disease, hypertension, and hyperlipidemia who initially presented to the emergency room for falls and confusion. At arrival to the emergency department she was tachycardic with a pulse of 110 the remainder of her vitals were normal. Laboratory analysis was remarkable for white blood cell count 17.3, hemoglobin 11.2, platelets 476, sodium 136, carbon dioxide 20, BUN 68, creatinine 1.21, glucose 121, AST 359, ALT 165, troponin 0.821. Toe x-ray shows no evidence of acute trauma. Chest x-ray shows no acute process. CT head and cervical spine showed no acute intracranial process no evidence of cervical spine fracture but mild multi degenerative disc disease. In the emergency department she was not complaining of chest pain but EKG revealed possible ST segment elevated myocardial infarction. She was also found to have a cold right extremity. She therefore was taken emergently to medical laboratory scientist. She was found to have mild coronary artery disease. She was subsequently transferred to the ICU. Consult was placed for vascular surgery. 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 She develoepd A fib wtih RVR and was started on heparin and amiodarone drip. 01/10 Patient was seen and examined. Patient reports no complaints. Pain well controlled. Son reports foot feels warmer and color is better. Currently on Heparin drip at 12 units/kg/hr. Started on Amiodarone 400 mg PO BID. Continued o n ASA and Metoprolol. Arterial duplex shows severe left PAD unable to comment on R.Carotid doppler shows < 50% stenosis of the bilateral carotid bifurcations. EEG shows moderate encephalopathy, no epileptiform dischages. CBC shows WBC count 21.6, Hg 10.6. CMP shows Na 134, BUN 18, Cr 0.45, glucose 122, Phos 2.3, AST 348, ALT 177, alk phos 136, albumin 2.9. CPK 10979. Vascular surgery plans for catheter directed angiogram tomorrow, will need to hold heparin 3 hours prior to angiogram, need Cardiology clearance. 01/11 Patient was seen and examined this morning. No new complaints. Plans for catheter directed angiogram later today. CBC shows WBC count 22.9, Hg 10.8. CMP shows Na 134, Cr 0.5, glucose 108. CPK [id number]. Vasc Duplex shows LLE DVT. Echo shows EF 50-55%, trace TR. APTT 45.8. 01/12 Patient was seen and examined. She reports moderate pain in her RLE. Angiogram done yesterday which showed severe CAD on the RLE vasculature. Recommendations include thrombectomy versus femoral to posterior tibial bypass versus palliative care. Her son Naif is the DPOA who is unreliable and out of state, multiple attempts to call him today and yesterday have gone unanswered. Risk management OK for granddaughter to be the decision maker. She has deferred to Jeramie to apply for guardianship. CBC shows WBC 15.2, Hg 9.9. BMP shows Na 133, Cr 0.42, Ca 8.2. CPK 6239. 01/13 Patient was seen and examined. No changes in clinical condition. It seems that family is leaning against any procedures at this time. Patient will likely need palliative care on discharge. Plans for home with C vs SNF. Will discuss with significant other. CBC shows WBC 12.3 Hg 9.6. INR 1.2. APTT 29.8. BMP Na 133, Cr 0.44, Ca 8.3. Vital signs reviewed General: nontoxic, no distress, appears at stated age Cardiovascular: S1S2 reg, no murmur, no appreciable dorsalis pedis pulses bilaterally Lungs: CTA bilateral, no rhonchi, no rales, no accessory muscle use Ext: no gross muscle atrophy, no edema b/l lower extremities, no contractures Neuro: no focal neuro deficits Psych: Alert, oriented to self , appropriate affect Ischemic right lower extremity with history of severe peripheral arterial disease Elevated troponin, abnormal EKG A fib with RVR Rhabdomyolysis LLE DVT Anemia Transaminitis Altered mentation with prior dx of dementia Leukoctyosis, suspect reactive Low folate Resolved: Acute kidney injury Chronic conditions: Hypertension, dyslipidemia, dementia Based on my assessment of this patient, this patient meets a moderate complexity level of care. Patient has an acute diagnosis of ischemic RLE that poses a threat to life or bodily function. This is complicated by A-Fib with RVR, elevated troponins and rhabdomyolysis. Ischemic right lower extremity with history of severe peripheral arterial disease: ASA 81 mg PO QD. Metoprolol 12.5 mg PO QD. DC Heparin drip and start Eliquis. Telemetry monitoring. Vascular surgery on board. Elevated troponin, abnormal EKG: Status post cath. No obstructive disease. Echocardiogram as above. ASA and beta boris as above. Would benefit from statin after rhabdo resoloved. Cardiology on board. A fib with RVR: Amiodarone 400 mg PO BID. Heparin drip for AC. Rhabdomyolysis: Trend. Monitor renal function. LLE DVT: Start Eliquis. Anemia: Stable. Trend. Transfuse if Hg < 7. Transaminitis: Likely related to rhabo. Trend. Altered mentation with prior dx of dementia Leukoctyosis, suspect reactive Low folate: Replace with FA 1 mg PO QD. Resolved: Acute kidney injury Chronic conditions: Hypertension, dyslipidemia, dementia I have reviewed the following automotive consultant notes: I have reviewed the results of the following tests: CBC, BMP, Coag panel. I have ordered the following tests: I have discussed the care of this patient with the following independent historian: Discussed with case management. I have independently interpreted the following test below: I have discussed the management of this patient with the following physician: Objective - Vital Signs Vital signs: Vital Signs Temp 98.2 F 01/13/23 08:00 Pulse 80 01/13/23 08:00 Resp 18 01/13/23 08:00 BP 182/77 01/13/23 08:00 Pulse Ox 99 01/13/23 08:00 FiO2 Intake & Output 01/12/23 01/13/23 01/13/23 18:59 06:59 18:59 Intake Total 700 38.134 50.818 Output Total 200 Balance 500 38.134 50.818 Weight 50.439 kg Intake: Intake, IV Titration 38.134 50.818 Amount Heparin Sod,Pork in 0.45% 38.134 50.818 NaCl 25,000 unit In 0.45 % NaCl 1 250ml.bag @ 12 UNITS/KG/HR 6.053 mls/hr IV .Q24H [facility] Rx#: [id number] Oral 700 Output: Urine 200 Other: Voiding Method Bedpan Bedpan Bedpan Diaper Diaper Diaper External Catheter External Catheter External Catheter # Voids 3 1 # Bowel Movements 1 - Labs CBC & Chem 7: 01/13/23 04:23 01/13/23 04:23 Labs: Abnormal Lab Results - Last 24 Hours (Table) 01/12/23 01/12/23 01/13/23 Range/Units 10:35 22:01 04:23 WBC 15.4 H (3.8-10.6) k/uL RBC 3.34 L (3.80-5.40) m/uL Hgb 10.5 L (11.4-16.0) gm/dL Hct 32.6 L (34.0-46.0) % Plt Count 451 H (150-450) k/uL Neutrophils # 13.3 H (1.3-7.7) k/uL Lymphocytes # (1.0-4.8) k/uL INR 1.2 H (<1.2) APTT (22.0-30.0) sec Sodium 133 L (137-145) mmol/L Creatinine 0.42 L (0.52-1.04) mg/dL Calcium 8.2 L (8.4-10.2) mg/dL Creatine Kinase 6239 H* (30-135) U/L 01/13/23 01/13/23 01/13/23 Range/Units 04:23 04:23 04:23 WBC 12.3 H (3.8-10.6) k/uL RBC 3.12 L (3.80-5.40) m/uL Hgb 9.6 L (11.4-16.0) gm/dL Hct 29.2 L (34.0-46.0) % Plt Count (150-450) k/uL Neutrophils # 10.4 H (1.3-7.7) k/uL Lymphocytes # 0.9 L (1.0-4.8) k/uL INR (<1.2) APTT 30.6 H (22.0-30.0) sec Sodium 133 L (137-145) mmol/L Creatinine 0.44 L (0.52-1.04) mg/dL Calcium 8.3 L (8.4-10.2) mg/dL Creatine Kinase (30-135) U/L
--- NOTE | 2023-01-13 12:29 | P.PN ---
Subjective Progress Note Date: 01/13/23 Principal diagnosis: Right lower extremity ischemia Patient is seen and examined today as a follow-up. She continues to be alert and oriented only 1 to self. She is without complaints at this time. She was resting comfortably. However she still does have grimacing with palpation to the right lower extremity. It is warm to touch. Did discuss with patient possible options moving forward such as hospice/palliative care, amputation of the right lower extremity as well as possible revascularization. Patient did report that she does not want an amputation however I'm not sure she understands other surgical options or option of no surgical intervention. This will again be discussed with the granddaughter Nancy who is making medical decisions at this time, as patient's son Naif Hector has not been able to be reached. Objective - Vital Signs Vital signs: Vital Signs Temp 97.8 F 01/13/23 04:00 Pulse 81 01/13/23 04:00 Resp 18 01/13/23 04:00 BP 175/71 01/13/23 04:00 Pulse Ox 98 01/13/23 04:00 FiO2 Intake & Output 01/12/23 01/13/23 01/13/23 18:59 06:59 18:59 Intake Total 700 38.134 Output Total 200 Balance 500 38.134 Weight 50.439 kg Intake: Intake, IV Titration 38.134 Amount Heparin Sod,Pork in 0.45% 38.134 NaCl 25,000 unit In 0.45 % NaCl 1 250ml.bag @ 12 UNITS/KG/HR 6.053 mls/hr IV .Q24H [facility] Rx#: [id number] Oral 700 Output: Urine 200 Other: Voiding Method Bedpan Bedpan Diaper Diaper External Catheter External Catheter # Voids 3 1 # Bowel Movements 1 - Exam General appearance: The patient is alert 1, appears in no acute distress. HET: Head is normocephalic and atraumatic. Neck: Supple. Extremities: Normal skin color and turgor. Right lower extremity warm to the touch, tender to palpation from thigh to ankle. Palpable right femoral pulse. Popliteal and PT signal present. Neurological: Pleasantly confused. Alert 1. - Labs CBC & Chem 7: 01/13/23 04:23 01/13/23 04:23 Labs: Abnormal Lab Results - Last 24 Hours (Table) 1001/12/23 01/12/23 Range/Units 10:35 10:35 22:01 WBC 15.2 H 15.4 H (3.8-10.6) k/uL RBC 3.21 L 3.34 L (3.80-5.40) m/uL Hgb 9.9 L 10.5 L (11.4-16.0) gm/dL Hct 30.1 L 32.6 L (34.0-46.0) % Plt Count 451 H (150-450) k/uL Neutrophils # 13.3 H (1.3-7.7) k/uL Lymphocytes # (1.0-4.8) k/uL APTT (22.0-30.0) sec Sodium 133 L (137-145) mmol/L Creatinine 0.42 L (0.52-1.04) mg/dL Calcium 8.2 L (8.4-10.2) mg/dL Creatine Kinase 6239 H* (30-135) U/L 01/13/23 01/13/23 Range/Units 04:23 04:23 WBC 12.3 H (3.8-10.6) k/uL RBC 3.12 L (3.80-5.40) m/uL Hgb 9.6 L (11.4-16.0) gm/dL Hct 29.2 L (34.0-46.0) % Plt Count (150-450) k/uL Neutrophils # 10.4 H (1.3-7.7) k/uL Lymphocytes # 0.9 L (1.0-4.8) k/uL APTT 30.6 H (22.0-30.0) sec Sodium (137-145) mmol/L Creatinine (0.52-1.04) mg/dL Calcium (8.4-10.2) mg/dL Creatine Kinase (30-135) U/L Assessment and Plan Assessment: 1. Severe aorto iliac occlusive disease with secondary arterial insufficiency of bilateral lower extremities, more pronounced on right than left. Right lower extremity severe peripheral arterial disease. 2. Atrial fibrillation with RVR on anticoagulation 3. History of tobacco abuse 4. Coronary artery disease status post cardiac catheterization 5. Rhabdomyolysis 6. Left lower extremity DVT 8. Dementia Plan: Patient is status post lower extremity angiogram with findings of severe peripheral arterial disease of the right lower extremity. Please see Dr. John's operative note regarding recommendation and discussion of care moving forward on this patient. Patient's son Naif Hector as listed as medical decision-maker for [place]. He has been unable to be reached several times at number provided [phone]. Patient's granddaughter who is also listed as next of kin Nancy Farfan was called and given update on grandmother's status and possible recommendations moving forward as we are unable to contact patient's son. Nancy did state that she would like to be medical decision maker, this was discussed with case management who spoke with risk management and Nancy as next of kin can make medical decisions as patient's son is an available and not answering his phone. Nancy Farfan contacted again today. She has discussed with the patient's significant other Jeramie and states that she knows her grandmother and that they do not want to proceed with any surgical options for her right lower extremity. They wish to continue making her comfortable with palliative care. May transition to oral anticoagulation per recommendations from cardiology. We will sign off at this time. Certainly don't hesitate to contact us if something changes. This will be discussed with primary medical team. The impression and plan of care has been dictated as directed. Dr. Solo I performed a history and examination of this patient, discussed the same with the dictator. I agree with the dictator's note ,documented as a scribe. Any additional findings or plans will be noted.
[2023-01-13] MEDS: APIXABAN 5 MG TAB PO SCH ×2 (13:25→21:15)
--- NOTE | 2023-01-13 17:06 | P.PN ---
Subjective Progress Note Date: 01/13/23 This is an 82-year-old female patient with a past medical history significant for history of lower extremities PAD as well as hypertension and dyslipidemia. The patient is somewhat poor historian and she does have slight change in mental status and disorientation. We consulted to see the patient for further evaluation off abnormal EKG showing an anterior ST elevation myocardial infarction and the ST segment changes are massive. The patient presented to the emergency department after she fell with a questionable syncope. She injured her right great toe. She was brought by her boyfriend to the emergency department where workup was performed including computed tomography scan of the brain which showed no acute abnormalities. Subsequently she underwent an EKG which showed significant ST segment elevation anteriorly concerning for STEMI. Also the patient was found to have cold right foot. We don't know the duration of her foot coolness. The patient was taken emergently to the cardiac medical laboratory technical officer where she underwent an angiogram from the right radial approach and that showed mild nonobstructive coronary artery disease. I did not performed left heart catheterization on her because I was concerned about any thrombus in the LV could be responsible for her cold foods as well as abnormal EKG with possible embolization which dissolved. Initially I accessed the left common femoral artery and its appeared that the patient underwent in the past aorta bifemoral bypass. The angiogram revealed a patent left common femoral artery but it seems that the wire was in the bypass to the left common femoral artery. She noted to have stenting either in her [place] left iliac arteries or in the left iliac's vein. It's hard to tell at this point. The procedure was performed from the right radial approach and the patient tolerated the procedure very well. The cath revealed only mild nonobstructive coronary artery disease. The patient will be transferred to the intensive care unit. I'm going to obtain CTA of the chest and abdomen and lower extremities just to rule out any evidence off d issection and also to assess the lower extremities arterial system. Vascular surgical consult we will be also obtained. Beside that the patient underwent a blood work showed stable hemoglobin was troponin is a slightly elevated and abnormal renal function and normal electrolytes. The liver function tests are elevated. Please note that the patient is alcoholic The examination is remarkable for stable vital signs beside elevated blood pressure consistent with a stage II hypertension and also distant heart sounds with clear breathing sounds bilaterally. 01/09 Seen and examined. Patient underwent heart catheterization yesterday with no obstructive disease. EKG has somewhat improved however mild persistent elevations. Echocardiogram ordered however has not been resulted. Repeat troponin also ordered however not resulted. Vascular surgery was consult that and CTA was performed with severe bilateral disease and occluded grafts. Her right lower extremity is cool however no open sores and denies any pain. Patient is somewhat confused however answers some questions appropriately. She did have episode of going into A. fib with RVR and amiodarone drip was started and she converted back to sinus rhythm. She also has been placed on a heparin drip. 01/10 Patient seen and examined. Some history is supplied by boyfriend who states she has had a decline over the last week or 2 and has not been eating as much. She is somewhat hypertensive blood pressures in the 150s and 160s. Amlodipine was given this morning. Lisinopril 5 mg twice a day has been given and we will increase to 10 mg twice a day. Echocardiogram shows ejection fraction 50-55%. She is still not answering many questions over denies any chest pain or pressure. Vascular surgery looking to perform angiogram possibly tomorrow. She remains on heparin drip however no recurrence of atrial fibrillation, remains on amiodarone 400 mg twice a day. 01/11 Patient's echocardiogram showed preserved LV systolic function with no major valvular abnormalities. Patient had a distal aortogram with runoff performed wh ich showed poor distal flow distal to the right popliteal artery. Patient complains of right mitchell pain. She had a Doppler done yesterday which showed concerns of possible DVT in left superficial femoral vein. She continues to be in sinus rhythm being on amiodarone. 01/12 Seen and examined at bedside this a.m. Patient denies having any active chest pain chest pressure. She continues to complain of right lower extremity pain but it is better as compared to yesterday 01/13/2023 Patient is seen and examined at bedside the same. Patient has decided not to proceed with the vast for surgery and would like palliation. Assessment Abnormal EKG concerning for ST elevation myocardial infarction. Heart cath showed mild CAD only. Mild nonobstructive coronary artery disease PAD with prior revascularization. Aortogram showed poor flow distal to right po plitial artery. s/p 4 mg Alteplase Left femoral vein DVT, acute Change in mental status. Normal workup as per neurology team Significant history of alcohol abuse New onset paroxysmal Afib, currently sinus Altered mental status Plan Continue amlodipine 5 mg daily. Continue lisinopril 20 mg and metoprolol 12.5 mg twice a day. If patient is hypertensive, next step will be to increase lisinopril if patient is still hypertensive. Continue with amiodarone 400 mg twice a day and decrease dose after patient received 7 days of amiodarone. Plan to start Eliquis 10 mg BID for 7 days. 5 mg BID after that for 3 months. After 3 months will transition to 2.5 mg BID. High dose of Eliquis even the patient is above 80 years of age and less than 60 kg because of DVT Further detailed discussion that I had with the patient, it seems that patient and patient's caregiver is not interested in having the patient undergo an U basilar procedure at this time. They are thinking more of a palliative care. They are thinking palliation because of patient's overall peak status, low- weight and frailty. If patient undergoes surgery, she will be at moderate risk for a high-risk procedure from a cardiac vascular standpoint. At this time cardiology team will sign off. Please reconsult us in case of any questions. Objective - Vital Signs Vital signs: Vital Signs Temp 98.1 F 01/13/23 16:00 Pulse 80 01/13/23 16:00 Resp 18 01/13/23 16:00 BP 157/78 01/13/23 16:00 Pulse Ox 99 01/13/23 16:00 FiO2 Intake & Output 01/12/23 01/13/23 01/13/23 18:59 06:59 18:59 Intake Total 700 38.134 290.818 Output Total 200 Balance 500 38.134 290.818 Weight 50.439 kg Intake: Intake, IV Titration 38.134 50.818 Amount Heparin Sod,Pork in 0.45% 38.134 50.818 NaCl 25,000 unit In 0.45 % NaCl 1 250ml.bag @ 12 UNITS/KG/HR 6.053 mls/hr IV .Q24H [facility] Rx#: [id number] Oral 700 240 Output: Urine 200 Other: Voiding Method Bedpan Bedpan Bedpan Diaper Diaper Diaper External Catheter External Catheter External Catheter # Voids 3 1 2 # Bowel Movements 1 - Labs CBC & Chem 7: 01/13/23 04:23 01/13/23 04:23 Labs: Abnormal Lab Results - Last 24 Hours (Table) 01/12/23 01/13/23 01/13/23 Range/Units 22:01 04:23 04:23 WBC 15.4 H 12.3 H (3.8-10.6) k/uL RBC 3.34 L 3.12 L (3.80-5.40) m/uL Hgb 10.5 L 9.6 L (11.4-16.0) gm/dL Hct 32.6 L 29.2 L (34.0-46.0) % Plt Count 451 H (150-450) k/uL Neutrophils # 13.3 H 10.4 H (1.3-7.7) k/uL Lymphocytes # 0.9 L (1.0-4.8) k/uL INR 1.2 H (<1.2) APTT (22.0-30.0) sec Sodium (137-145) mmol/L Creatinine (0.52-1.04) mg/dL Calcium (8.4-10.2) mg/dL 01/13/23 01/13/23 Range/Units 04:23 04:23 WBC (3.8-10.6) k/uL RBC (3.80-5.40) m/uL Hgb (11.4-16.0) gm/dL Hct (34.0-46.0) % Plt Count (150-450) k/uL Neutrophils # (1.3-7.7) k/uL Lymphocytes # (1.0-4.8) k/uL INR (<1.2) APTT 30.6 H (22.0-30.0) sec Sodium 133 L (137-145) mmol/L Creatinine 0.44 L (0.52-1.04) mg/dL Calcium 8.3 L (8.4-10.2) mg/dL
[2023-01-13] MEDS: ATORVASTATIN 40 MG TAB PO SCH (21:14)
[2023-01-14] MEDS: SODIUM CHLORIDE 0.9% 1,000 ML IV SCH (04:15)
[2023-01-14] MEDS: THIAMINE 100 MG TAB PO SCH (09:29)
[2023-01-14] MEDS: lisinopriL 10 MG TAB PO SCH (09:29)
[2023-01-14] MEDS: METOPROLOL SUCCINATE (ER) 25 MG TAB.ER.24H PO SCH (09:29)
[2023-01-14] MEDS: AMIODARONE 200 MG TAB PO SCH ×2 (09:29→19:59)
[2023-01-14] MEDS: ASPIRIN 81 MG PO SCH (09:29)
[2023-01-14] MEDS: FOLIC ACID 1 MG TAB PO SCH (09:29)
[2023-01-14] MEDS: APIXABAN 5 MG TAB PO SCH ×2 (09:29→19:59)
--- NOTE | 2023-01-14 12:15 | P.PN ---
Subjective Progress Note Date: 01/14/23 Patient is an 82-year-old female with known dementia, peripheral arterial disease, hypertension, and hyperlipidemia who initially presented to the emergency room for falls and confusion. At arrival to the emergency department she was tachycardic with a pulse of 110 the remainder of her vitals were normal. Laboratory analysis was remarkable for white blood cell count 17.3, hemoglobin 11.2, platelets 476, sodium 136, carbon dioxide 20, BUN 68, creatinine 1.21, glucose 121, AST 359, ALT 165, troponin 0.821. Toe x-ray shows no evidence of acute trauma. Chest x-ray shows no acute process. CT head and cervical spine showed no acute intracranial process no evidence of cervical spine fracture but mild multi degenerative disc disease. In the emergency department she was not complaining of chest pain but EKG revealed possible ST segment elevated myocardial infarction. She was also found to have a cold right extremity. She therefore was taken emergently to [facility]. She was found to have mild coronary artery disease. She was subsequently transferred to the ICU. Consult was placed for vascular surgery. 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 She develoepd A fib wtih RVR and was started on heparin and amiodarone drip. 01/10 Patient was seen and examined. Patient reports no complaints. Pain well controlled. Son reports foot feels warmer and color is better. Currently on Heparin drip at 12 units/kg/hr. Started on Amiodarone 400 mg PO BID. Continued o n ASA and Metoprolol. Arterial duplex shows severe left PAD unable to comment on R.Carotid doppler shows < 50% stenosis of the bilateral carotid bifurcations. EEG shows moderate encephalopathy, no epileptiform dischages. CBC shows WBC count 21.6, Hg 10.6. CMP shows Na 134, BUN 18, Cr 0.45, glucose 122, Phos 2.3, AST 348, ALT 177, alk phos 136, albumin 2.9. CPK [id number]. Vascular surgery plans for catheter directed angiogram tomorrow, will need to hold heparin 3 hours prior to angiogram, need Cardiology clearance. 01/11 Patient was seen and examined this morning. No new complaints. Plans for catheter directed angiogram later today. CBC shows WBC count 22.9, Hg 10.8. CMP shows Na 134, Cr 0.5, glucose 108. CPK [id number]. Vasc Duplex shows LLE DVT. Echo shows EF 50-55%, trace TR. APTT 45.8. 01/12 Patient was seen and examined. She reports moderate pain in her RLE. Angiogram done yesterday which showed severe CAD on the RLE vasculature. Recommendations include thrombectomy versus femoral to posterior tibial bypass versus palliative care. Her son Naif is the DPOA who is unreliable and out of state, multiple attempts to call him today and yesterday have gone unanswered. Risk management OK for granddaughter to be the decision maker. She has deferred to Jeramie to apply for guardianship. CBC shows WBC 15.2, Hg 9.9. BMP shows Na 133, Cr 0.42, Ca 8.2. CPK 6239. 01/13 Patient was seen and examined. No changes in clinical condition. It seems that family is leaning against any procedures at this time. Patient will likely need palliative care on discharge. Plans for home with [facility] vs SNF. Will discuss with significant other. CBC shows WBC 12.3 Hg 9.6. INR 1.2. APTT 29.8. BMP Na 133, Cr 0.44, Ca 8.3. 01/14 Patient was seen and examined. No acute events overnight. Discussed with significant other, he is currently applying for guardianship and is agreeable for patient to go to [facility] on discharge. Agreeable for no intervention. No new labs done today. Vital signs reviewed General: nontoxic, no distress, appears at stated age Cardiovascular: S1S2 reg, no murmur, no appreciable dorsalis pedis pulses bilaterally Lungs: CTA bilateral, no rhonchi, no rales, no accessory muscle use Ext: no gross muscle atrophy, no edema b/l lower extremities, no contractures Neuro: no focal neuro deficits Psych: Alert, oriented to self , appropriate affect Ischemic right lower extremity with history of severe peripheral arterial disease Elevated troponin, abnormal EKG A fib with RVR Rhabdomyolysis LLE DVT Anemia Transaminitis Altered mentation with prior dx of dementia Leukoctyosis, suspect reactive Low folate Resolved: Acute kidney injury Chronic conditions: Hypertension, dyslipidemia, dementia Based on my assessment of this patient, this patient meets a moderate complexity level of care. Patient has an acute diagnosis of ischemic RLE that poses a threat to life or bodily function. This is complicated by A-Fib with RVR, elevated troponins and rhabdomyolysis. Ischemic right lower extremity with history of severe peripheral arterial disease: ASA 81 mg PO QD. Metoprolol 12.5 mg PO QD. Continue Eliquis 10 mg PO BID. Telemetry monitoring. Vascular surgery on board. Elevated troponin, abnormal EKG: Status post cath. No obstructive disease. Echocardiogram as above. ASA and beta boris as above. Would benefit from statin after rhabdo resoloved. Cardiology on board. A fib with RVR: Amiodarone 400 mg PO BID. Eliquis for AC. Rhabdomyolysis: Trend. Monitor renal function. LLE DVT: Start Eliquis. Anemia: Stable. Trend. Transfuse if Hg < 7. Transaminitis: Likely related to rhabo. Trend. Altered mentation with prior dx of dementia Leukoctyosis, suspect reactive Low folate: Replace with FA 1 mg PO QD. Resolved: Acute kidney injury Chronic conditions: Hypertension, dyslipidemia, dementia I have reviewed the following documentation consultant notes: I have reviewed the results of the following tests: I have ordered the following tests: I have discussed the care of this patient with the following independent historian: Discussed with significant other. I have independently interpreted the following test below: I have discussed the management of this patient with the following physician: Objective - Vital Signs Vital signs: Vital Signs Temp 98.2 F 01/13/23 20:00 Pulse 79 01/14/23 08:00 Resp 16 01/14/23 08:00 BP 174/75 01/14/23 08:00 Pulse Ox 98 01/14/23 08:00 FiO2 Intake & Output 01/13/23 01/14/23 01/14/23 18:59 06:59 18:59 Intake Total 290.818 Balance 290.818 Intake: Intake, IV Titration 50.818 Amount Heparin Sod,Pork in 0.45% 50.818 NaCl 25,000 unit In 0.45 % NaCl 1 250ml.bag @ 12 UNITS/KG/HR 6.053 mls/hr IV .Q24H [facility] Rx#: [id number] Oral 240 Other: Voiding Method Bedpan Bedpan Bedpan Diaper Diaper Diaper External Catheter # Voids 2 4 # Bowel Movements 1 - Labs CBC & Chem 7: 01/13/23 04:23 01/13/23 04:23
[2023-01-14] MEDS ORDERED: METOPROLOL SUCCINATE (ER) 25 MG TAB.ER.24H PO STA (19:28)
[2023-01-14] MEDS ORDERED: lisinopriL 20 MG TAB PO STA ×2 (19:29)
--- NOTE | 2023-01-14 19:32 | P.PN ---
Subjective Progress Note Date: 01/14/23 This is an 82-year-old female patient with a past medical history significant for history of lower extremities PAD as well as hypertension and dyslipidemia. The patient is somewhat poor historian and she does have slight change in mental status and disorientation. We consulted to see the patient for further evaluation off abnormal EKG showing an anterior ST elevation myocardial infarction and the ST segment changes are massive. The patient presented to the emergency department after she fell with a questionable syncope. She injured her right great toe. She was brought by her boyfriend to the emergency department where workup was performed including computed tomography scan of the brain which showed no acute abnormalities. Subsequently she underwent an EKG which showed significant ST segment elevation anteriorly concerning for STEMI. Also the patient was found to have cold right foot. We don't know the duration of her foot coolness. The patient was taken emergently to the cardiac cathode washer where she underwent an angiogram from the right radial approach and that showed mild nonobstructive coronary artery disease. I did not performed left heart catheterization on her because I was concerned about any thrombus in the LV could be responsible for her cold foods as well as abnormal EKG with possible embolization which dissolved. Initially I accessed the left common femoral artery and its appeared that the patient underwent in the past aorta bifemoral bypass. The angiogram revealed a patent left common femoral artery but it seems that the wire was in the bypass to the left common femoral artery. She noted to have stenting either in her cocopah left iliac arteries or in the left iliac's vein. It's hard to tell at this point. The procedure was performed from the right radial approach and the patient tolerated the procedure very well. The cath revealed only mild nonobstructive coronary artery disease. The patient will be transferred to the intensive care unit. I'm going to obtain CTA of the chest and abdomen and lower extremities just to rule out any evidence off d issection and also to assess the lower extremities arterial system. Vascular surgical consult we will be also obtained. Beside that the patient underwent a blood work showed stable hemoglobin was troponin is a slightly elevated and abnormal renal function and normal electrolytes. The liver function tests are elevated. Please note that the patient is alcoholic The examination is remarkable for stable vital signs beside elevated blood pressure consistent with a stage II hypertension and also distant heart sounds with clear breathing sounds bilaterally. 01/09 Seen and examined. Patient underwent heart catheterization yesterday with no obstructive disease. EKG has somewhat improved however mild persistent elevations. Echocardiogram ordered however has not been resulted. Repeat troponin also ordered however not resulted. Vascular surgery was consult that and CTA was performed with severe bilateral disease and occluded grafts. Her right lower extremity is cool however no open sores and denies any pain. Patient is somewhat confused however answers some questions appropriately. She did have episode of going into A. fib with RVR and amiodarone drip was started and she converted back to sinus rhythm. She also has been placed on a heparin drip. 01/10 Patient seen and examined. Some history is supplied by boyfriend who states she has had a decline over the last week or 2 and has not been eating as much. She is somewhat hypertensive blood pressures in the 150s and 160s. Amlodipine was given this morning. Lisinopril 5 mg twice a day has been given and we will increase to 10 mg twice a day. Echocardiogram shows ejection fraction 50-55%. She is still not answering many questions over denies any chest pain or pressure. Vascular surgery looking to perform angiogram possibly tomorrow. She remains on heparin drip however no recurrence of atrial fibrillation, remains on amiodarone 400 mg twice a day. 01/11 Patient's echocardiogram showed preserved LV systolic function with no major valvular abnormalities. Patient had a distal aortogram with runoff performed wh ich showed poor distal flow distal to the right popliteal artery. Patient complains of right mitchell pain. She had a Doppler done yesterday which showed concerns of possible DVT in left superficial femoral vein. She continues to be in sinus rhythm being on amiodarone. 01/12 Seen and examined at bedside this a.m. Patient denies having any active chest pain chest pressure. She continues to complain of right lower extremity pain but it is better as compared to yesterday 01/13/2023 Patient is seen and examined at bedside the same. Patient has decided not to proceed with the vast for surgery and would like palliation. 01/14 Nurse notified that the patient is hypertensive. Her systolic blood pressure is 188, diastolic is around 90. I will increase her antihypertensives. She denies having any chest pain chest pressure Assessment Abnormal EKG concerning for ST elevation myocardial infarction. Heart cath showed mild CAD only. Mild nonobstructive coronary artery disease PAD with prior revascularization. Aortogram showed poor flow distal to right poplitial artery. s/p 4 mg Alteplase Left femoral vein DVT, acute Change in mental status. Normal workup as per neurology team Significant history of alcohol abuse New onset paroxysmal Afib, currently sinus Altered mental status Plan Increase lisinopril to 40 mg and metoprolol to 25 mg twice a day due to poorly controlled HTN. Continue with amiodarone 400 mg twice a day and decrease dose after patient received 7 days of amiodarone. Plan to start Eliquis 10 mg BID for 7 days. 5 mg BID after that for 3 months. After 3 months will transition to 2.5 mg BID. High dose of Eliquis even the patient is above 78 years of age and less than 60 kg because of DVT Further detailed discussion that I had with the patient, it seems that patient and patient's caregiver is not interested in having the patient undergo an U basilar procedure at this time. They are thinking more of a palliative care. They are thinking palliation because of patient's overall peak status, low- weight and frailty. If patient undergoes surgery, she will be at moderate risk for a high-risk procedure from a cardiac vascular standpoint. At this time cardiology team will sign off. Please reconsult us in case of any questions. Objective - Vital Signs Vital signs: Vital Signs Temp 98.2 F 01/13/23 20:00 Pulse 80 01/14/23 16:00 Resp 16 01/14/23 16:00 BP 188/65 01/14/23 16:00 Pulse Ox 99 01/14/23 16:00 FiO2 Intake & Output 01/14/23 01/14/23 01/15/23 06:59 18:59 06:59 Intake Total 118 Output Total 350 Balance -232 Intake: Oral 118 Output: Urine 350 Other: Voiding Method Bedpan Bedpan Diaper Diaper # Voids 4 # Bowel Movements 1 - Labs CBC & Chem 7: 01/13/23 04:23 01/13/23 04:23
[2023-01-14] MEDS: ATORVASTATIN 40 MG TAB PO SCH (19:59)
[2023-01-15] MEDS: AMIODARONE 200 MG TAB PO SCH ×2 (08:47→20:30)
[2023-01-15] MEDS: ASPIRIN 81 MG PO SCH (08:47)
[2023-01-15] MEDS: FOLIC ACID 1 MG TAB PO SCH (08:48)
[2023-01-15] MEDS: THIAMINE 100 MG TAB PO SCH (08:48)
[2023-01-15] MEDS: APIXABAN 5 MG TAB PO SCH ×2 (08:48→20:30)
[2023-01-15] MEDS: lisinopriL 20 MG TAB PO SCH (08:48)
--- NOTE | 2023-01-15 11:26 | P.PN ---
Subjective Progress Note Date: 01/15/23 Patient is an 82-year-old female with known dementia, peripheral arterial disease, hypertension, and hyperlipidemia who initially presented to the emergency room for falls and confusion. At arrival to the emergency department she was tachycardic with a pulse of 110 the remainder of her vitals were normal. Laboratory analysis was remarkable for white blood cell count 17.3, hemoglobin 11.2, platelets 476, sodium 136, carbon dioxide 20, BUN 68, creatinine 1.21, glucose 121, AST 359, ALT 165, troponin 0.821. Toe x-ray shows no evidence of acute trauma. Chest x-ray shows no acute process. CT head and cervical spine showed no acute intracranial process no evidence of cervical spine fracture but mild multi degenerative disc disease. In the emergency department she was not complaining of chest pain but EKG revealed possible ST segment elevated myocardial infarction. She was also found to have a cold right extremity. She therefore was taken emergently to [facility]. She was found to have mild coronary artery disease. She was subsequently transferred to the ICU. Consult was placed for vascular surgery. 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 She develoepd A fib wtih RVR and was started on heparin and amiodarone drip. 01/10 Patient was seen and examined. Patient reports no complaints. Pain well controlled. Son reports foot feels warmer and color is better. Currently on Heparin drip at 12 units/kg/hr. Started on Amiodarone 400 mg PO BID. Continued o n ASA and Metoprolol. Arterial duplex shows severe left PAD unable to comment on R.Carotid doppler shows < 50% stenosis of the bilateral carotid bifurcations. EEG shows moderate encephalopathy, no epileptiform dischages. CBC shows WBC count 21.6, Hg 10.6. CMP shows Na 134, BUN 18, Cr 0.45, glucose 122, Phos 2.3, AST 348, ALT 177, alk phos 136, albumin 2.9. CPK 96018. Vascular surgery plans for catheter directed angiogram tomorrow, will need to hold heparin 3 hours prior to angiogram, need Cardiology clearance. 01/11 Patient was seen and examined this morning. No new complaints. Plans for catheter directed angiogram later today. CBC shows WBC count 22.9, Hg 10.8. CMP shows Na 134, Cr 0.5, glucose 108. CPK 24394. Vasc Duplex shows LLE DVT. Echo shows EF 50-55%, trace TR. APTT 45.8. 01/12 Patient was seen and examined. She reports moderate pain in her RLE. Angiogram done yesterday which showed severe CAD on the RLE vasculature. Recommendations include thrombectomy versus femoral to posterior tibial bypass versus palliative care. Her son Naif is the DPOA who is unreliable and out of state, multiple attempts to call him today and yesterday have gone unanswered. Risk management OK for granddaughter to be the decision maker. She has deferred to Jeramie to apply for guardianship. CBC shows WBC 15.2, Hg 9.9. BMP shows Na 133, Cr 0.42, Ca 8.2. CPK 6239. 01/13 Patient was seen and examined. No changes in clinical condition. It seems that family is leaning against any procedures at this time. Patient will likely need palliative care on discharge. Plans for home with [facility] vs SNF. Will discuss with significant other. CBC shows WBC 12.3 Hg 9.6. INR 1.2. APTT 29.8. BMP Na 133, Cr 0.44, Ca 8.3. 01/14 Patient was seen and examined. No acute events overnight. Discussed with significant other, he is currently applying for guardianship and is agreeable for patient to go to [facility] on discharge. Agreeable for no intervention. No new labs done today. 01/15 Patient was seen and examined. BP elevated with SBP in the 200s this morning. No complaints. Appears comfortable. Plans for [facility] on Monday. Vital signs reviewed General: nontoxic, no distress, appears at stated age Cardiovascular: S1S2 reg, no murmur, no appreciable dorsalis pedis pulses bilaterally Lungs: CTA bilateral, no rhonchi, no rales, no accessory muscle use Ext: no gross muscle atrophy, no edema b/l lower extremities, no contractures Neuro: no focal neuro deficits Psych: Alert, oriented to self , appropriate affect Ischemic right lower extremity with history of severe peripheral arterial disease Elevated troponin, abnormal EKG A fib with RVR Rhabdomyolysis LLE DVT Anemia Transaminitis Altered mentation with prior dx of dementia Leukoctyosis, suspect reactive Low folate Resolved: Acute kidney injury Chronic conditions: Hypertension, dyslipidemia, dementia Based on my assessment of this patient, this patient meets a moderate complexity level of care. Patient has an acute diagnosis of ischemic RLE that poses a threat to life or bodily function. This is complicated by A-Fib with RVR, elevated troponins and rhabdomyolysis. Ischemic right lower extremity with history of severe peripheral arterial disease: ASA 81 mg PO QD. Metoprolol 12.5 mg PO QD. Continue Eliquis 10 mg PO BID. Telemetry monitoring. Vascular surgery on board. Elevated troponin, abnormal EKG: Status post cath. No obstructive disease. Echocardiogram as above. ASA and beta boris as above. Would benefit from statin after rhabdo resoloved. Cardiology on board. A fib with RVR: Amiodarone 400 mg PO BID. Eliquis for AC. Rhabdomyolysis: Trend. Monitor renal function. LLE DVT: Start Eliquis. Anemia: Stable. Trend. Transfuse if Hg < 7. Transaminitis: Likely related to rhabo. Trend. Altered mentation with prior dx of dementia Leukoctyosis, suspect reactive Low folate: Replace with FA 1 mg PO QD. Resolved: Acute kidney injury Chronic conditions: Hypertension, dyslipidemia, dementia I have reviewed the following strategy consultant notes: Cardiology note. I have reviewed the results of the following tests: I have ordered the following tests: I have discussed the care of this patient with the following independent historian: I have independently interpreted the following test below: I have discussed the management of this patient with the following physician: Objective - Vital Signs Vital signs: Vital Signs Temp 98.2 F 01/14/23 20:00 Pulse 72 01/15/23 04:00 Resp 18 01/15/23 04:00 BP 161/57 01/15/23 04:00 Pulse Ox 100 01/15/23 04:00 FiO2 Intake & Output 01/14/23 01/15/23 01/15/23 18:59 06:59 18:59 Intake Total 118 Output Total 350 Balance -232 Intake: Oral 118 Output: Urine 350 Other: Voiding Method Bedpan Bedside Commode Diaper Bedpan Diaper # Voids 2 # Bowel Movements 1 1 - Labs CBC & Chem 7: 01/13/23 04:23 01/13/23 04:23
[2023-01-15] MEDS: METOPROLOL TARTRATE 25 MG TAB PO SCH ×2 (12:20→20:30)
[2023-01-15] MEDS: ATORVASTATIN 40 MG TAB PO SCH (20:30)
[2023-01-16] MEDS: APIXABAN 5 MG TAB PO SCH (09:58)
[2023-01-16] MEDS: AMIODARONE 200 MG TAB PO SCH (09:58)
[2023-01-16] MEDS: METOPROLOL TARTRATE 25 MG TAB PO SCH (09:58)
[2023-01-16] MEDS: lisinopriL 20 MG TAB PO SCH (09:58)
[2023-01-16] MEDS: FOLIC ACID 1 MG TAB PO SCH (09:58)
[2023-01-16] MEDS: ASPIRIN 81 MG PO SCH (09:58)
[2023-01-16] MEDS: THIAMINE 100 MG TAB PO SCH (09:58)
[2023-01-16] MEDS: ACETAMINOPHEN TAB 325 MG TAB PO PRN (10:12)
[2023-01-16 12:35] VITALS: BP 187/53; PULSE 60; RESP 16; TEMP 97.5
--- NOTE | 2023-01-16 12:50 | P.PN ---
Subjective Progress Note Date: 01/16/23 Patient is an 82-year-old female with known dementia, peripheral arterial disease, hypertension, and hyperlipidemia who initially presented to the emergency room for falls and confusion. At arrival to the emergency department she was tachycardic with a pulse of 110 the remainder of her vitals were normal. Laboratory analysis was remarkable for white blood cell count 17.3, hemoglobin 11.2, platelets 476, sodium 136, carbon dioxide 20, BUN 68, creatinine 1.21, glucose 121, AST 359, ALT 165, troponin 0.821. Toe x-ray shows no evidence of acute trauma. Chest x-ray shows no acute process. CT head and cervical spine showed no acute intracranial process no evidence of cervical spine fracture but mild multi degenerative disc disease. In the emergency department she was not complaining of chest pain but EKG revealed possible ST segment elevated myocardial infarction. She was also found to have a cold right extremity. 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 She was found to have mild coronary artery disease. She was subsequently transferred to the ICU. Consult was placed for vascular surgery. 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 She develoepd A fib wtih RVR and was started on heparin and amiodarone drip. 01/10 Currently on Heparin drip at 12 units/kg/hr. Started on Amiodarone 400 mg PO BID. Continued on ASA and Metoprolol. Arterial duplex shows severe left PAD unable to comment on R. Carotid doppler shows < 50% stenosis of the bilateral carotid bifurcations. EEG shows moderate encephalopathy, no epileptiform dischages. Vascular surgery plans for catheter directed angiogram tomorrow, will need to hold heparin 3 hours prior to angiogram, need Cardiology clearance. 01/11 Plans for catheter directed angiogram later today. Vasc Duplex shows LLE DVT. Echo shows EF 50-55%, trace TR. 01/12 Angiogram done yesterday which showed severe CAD on the RLE vasculature. Recommendations include thrombectomy versus femoral to posterior tibial bypass versus palliative care. Her son Naif is the DPOA who is unreliable and out of state, multiple attempts to call him today and yesterday have gone unanswered. Risk management OK for granddaughter to be the decision maker. She has deferred to Jeramie to apply for guardianship. 01/13It seems that family is leaning against any procedures at this time. Patient will likely need palliative care on discharge. Plans for home with [facility] vs SNF. Will discuss with significant other. 01/14 Discussed with significant other, he is currently applying for guardianship and is agreeable for patient to go to [facility] on discharge. Agreeable for no intervention. 01/15 BP elevated with SBP in the 200s this morning. Plans for [place] on Monday. 01/16 Patient was seen and examined. No acute events overnight. Discussed with case management, [facility] out of network. Still working on discharge planning. Medically stable at this time. Vital signs reviewed General: nontoxic, no distress, appears at stated age Cardiovascular: S1S2 reg, no murmur, no appreciable dorsalis pedis pulses bilaterally Lungs: CTA bilateral, no rhonchi, no rales, no accessory muscle use Ext: no gross muscle atrophy, no edema b/l lower extremities, no contractures Neuro: no focal neuro deficits Psych: Alert, oriented to self , appropriate affect Ischemic right lower extremity with history of severe peripheral arterial disease Elevated troponin, abnormal EKG A fib with RVR Rhabdomyolysis LLE DVT Anemia Transaminitis Altered mentation with prior dx of dementia Leukoctyosis, suspect reactive Low folate Resolved: Acute kidney injury Chronic conditions: Hypertension, dyslipidemia, dementia Based on my assessment of this patient, this patient meets a moderate complexity level of care. Patient has an acute diagnosis of ischemic RLE that poses a threat to life or bodily function. This is complicated by A-Fib with RVR, elevated troponins and rhabdomyolysis. Ischemic right lower extremity with history of severe peripheral arterial disease: ASA 81 mg PO QD. Metoprolol 25 mg PO BID. Continue Eliquis 10 mg PO BID. Telemetry monitoring. Vascular surgery on board. Elevated troponin, abnormal EKG: Status post cath. No obstructive disease. Echocardiogram as above. ASA and beta boris as above. Would benefit from statin after rhabdo resoloved. Cardiology on board. A fib with RVR: Amiodarone 400 mg PO BID. Eliquis for AC. Rhabdomyolysis: Trend. Monitor renal function. LLE DVT: Start Eliquis. Anemia: Stable. Trend. Transfuse if Hg < 7. Transaminitis: Likely related to rhabo. Trend. Altered mentation with prior dx of dementia Leukoctyosis, suspect reactive Low folate: Replace with FA 1 mg PO QD. Resolved: Acute kidney injury Chronic conditions: Hypertension, dyslipidemia, dementia I have reviewed the following solar consultant notes: Cardiology note. I have reviewed the results of the following tests: I have ordered the following tests: CBC and BMP tomorrow morning. I have discussed the care of this patient with the following independent historian: Discussed with significant other and case management. I have independently interpreted the following test below: I have discussed the management of this patient with the following physician: Objective - Vital Signs Vital signs: Vital Signs Temp 97.5 F L 01/16/23 12:00 Pulse 60 01/16/23 12:00 Resp 16 01/16/23 12:00 BP 187/53 01/16/23 12:00 Pulse Ox 99 01/16/23 12:00 FiO2 Intake & Output 01/15/23 01/16/23 01/16/23 18:59 06:59 18:59 Intake Total 417 Balance 417 Intake: Oral 417 Other: Voiding Method Bedside Commode Bedside Commode Bedpan Bedpan Diaper Diaper # Voids 2 - Labs CBC & Chem 7: 01/13/23 04:23 01/13/23 04:23
[2023-01-16] MEDS ORDERED: amLODIPine 10 MG TAB PO SCH (13:00)
--- NOTE | 2023-01-16 17:32 | P.DS ---
Providers Date of admission: 01/08/23 18:05 Expected date of discharge: 01/16/23 Attending physician: Latosha Guerrero DO Consults: 01/08/23 19:31 Consult Physician Routine Consulting Provider: Sandeep Garcia Consult Reason/Comments: cold right foot Do you want consulting provider notified?: Yes 01/09/23 10:05 Consult Physician ONCE Consulting Provider: Johann Joshua Consult Reason/Comments: Admitted with AMS changes, and new onset Afib RVR Do you want consulting provider notified?: Already Contacted Primary care physician: Physician Nonstaff Hospital Course: Patient is an 82-year-old female with known dementia, peripheral arterial disease, hypertension, and hyperlipidemia who initially presented to the emergency room for falls and confusion. At arrival to the emergency department she was tachycardic with a pulse of 110 the remainder of her vitals were normal. Laboratory analysis was remarkable for white blood cell count 17.3, hemoglobin 11.2, platelets 476, sodium 136, carbon dioxide 20, BUN 68, creatinine 1.21, glucose 121, AST 359, ALT 165, troponin 0.821. Toe x-ray shows no evidence of acute trauma. Chest x-ray shows no acute process. CT head and cervical spine showed no acute intracranial process no evidence of cervical spine fracture but mild multi degenerative disc disease. In the emergency department she was not complaining of chest pain but EKG revealed possible ST segment elevated myocardial infarction. She was also found to have a cold right extremity. 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 She was found to have mild coronary artery disease. She was subsequently transferred to the ICU. Consult was placed for vascular surgery. 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 She develoepd A fib wtih RVR and was started on heparin and amiodarone drip. 01/10 Currently on Heparin drip at 12 units/kg/hr. Started on Amiodarone 400 mg PO BID. Continued on ASA and Metoprolol. Arterial duplex shows severe left PAD unable to comment on R. Carotid doppler shows < 50% stenosis of the bilateral carotid bifurcations. EEG shows moderate encephalopathy, no epileptiform dischages. Vascular surgery plans for catheter directed angiogram tomorrow, will need to hold heparin 3 hours prior to angiogram, need Cardiology clearance. 01/11 Plans for catheter directed angiogram later today. Vasc Duplex shows LLE DVT. Echo shows EF 50-55%, trace TR. 01/12 Angiogram done yesterday which showed severe CAD on the RLE vasculature. Recommendations include thrombectomy versus femoral to posterior tibial bypass versus palliative care. Her son Naif is the DPOA who is unreliable and out of state, multiple attempts to call him today and yesterday have gone unanswered. Risk management OK for granddaughter to be the decision maker. She has deferred to Jeramie to apply for guardianship. 01/13It seems that family is leaning against any procedures at this time. Patient will likely need palliative care on discharge. Plans for home with [facility] vs SNF. Will discuss with significant other. 01/14 Discussed with significant other, he is currently applying for guardianship and is agreeable for patient to go to [facility] on discharge. Agreeable for no intervention. 01/15 BP elevated with SBP in the 200s this morning. Plans for [place] on Monday. 01/16 Patient was seen and examined. No acute events overnight. Discussed with case management, [facility] out of network. Medically stable at this time. Unable to obtain SNF due to insurance issues. Significant other comfortable taking the patient home. Will prescribe new meds to [facility]. Might need wheelchair van for transportation. DME script signed. Pertinent test include CXR, Toe XR, Head CT, C-spine CT, CTA aorta with run off, Liver US, Carotid doppler, LE Duplex, EEG, Echo. Pertinent procedures include catheter directed angiogram. Vital signs reviewed General: nontoxic, no distress, appears at stated age Cardiovascular: S1S2 reg, no murmur, no appreciable dorsalis pedis pulses bilaterally Lungs: CTA bilateral, no rhonchi, no rales, no accessory muscle use Ext: no gross muscle atrophy, no edema b/l lower extremities, no contractures Neuro: no focal neuro deficits Psych: Alert, oriented to self , appropriate affect Discharge Diagnosis: Ischemic right lower extremity with history of severe peripheral arterial disease Elevated troponin, abnormal EKG A fib with RVR Rhabdomyolysis LLE DVT Anemia Transaminitis Altered mentation with prior dx of dementia Leukoctyosis, suspect reactive Low folate Resolved: Acute kidney injury Chronic conditions: Hypertension, dyslipidemia, dementia This complex discharge took 45 minutes to complete. Patient Condition at Discharge: Poor Plan - Discharge Summary New Discharge Prescriptions: New Apixaban [Eliquis Starter Pack (for VTE)] 5 - 10 mg PO DIRECTED 30 Days #1 each Folic Acid 1 mg PO DAILY #30 tab Atorvastatin [Lipitor] 40 mg PO HS #30 tab Aspirin 81 mg PO DAILY #30 tab Amiodarone [Cordarone] 400 mg PO BID #120 tab Metoprolol Tartrate [Lopressor] 25 mg PO BID #60 tab amLODIPine [Norvasc] 10 mg PO DAILY #30 tab Continue lisinopriL 40 mg PO DAILY Acetaminophen Tab [Tylenol] 500 mg PO Q6H PRN PRN Reason: Pain Or Fever > 100.5 Discharge Medication List Acetaminophen Tab [Tylenol] 500 mg PO Q6H PRN 01/08/23 [History] lisinopriL 40 mg PO DAILY 01/08/23 [History] Amiodarone [Cordarone] 400 mg PO BID #120 tab 01/16/23 [Rx] Apixaban [Eliquis Starter Pack (for VTE)] 5 - 10 mg PO DIRECTED 30 Days #1 each 01/16/23 [Rx] Aspirin 81 mg PO DAILY #30 tab 01/16/23 [Rx] Atorvastatin [Lipitor] 40 mg PO HS #30 tab 01/16/23 [Rx] Folic Acid 1 mg PO DAILY #30 tab 01/16/23 [Rx] Metoprolol Tartrate [Lopressor] 25 mg PO BID #60 tab 01/16/23 [Rx] amLODIPine [Norvasc] 10 mg PO DAILY #30 tab 01/16/23 [Rx] Follow up Appointment(s)/Referral(s): Terry Ruffin MD [STAFF PHYSICIAN] - 1 Week (Office will call you with an appointment.) Thom Solo DO [STAFF PHYSICIAN] - 01/24/23 8:30 am Nonstaff,Physician [Primary Care Provider] - 1-2 days Patient Instructions/Handouts: Heart Attack (DC), Peripheral Vascular Disease (DC) Discharge Disposition: HOME SELF-CARE
== END 2023-01-16 16:06 | disposition home or self-care (01) | DRG 286 ==
LOC: EC 13:54 → 2SICU 18:05 → 3SCARD 01-11 11:56
PROVIDERS: ADMIT Internal Medicine; ATTEND Internal Medicine
PROC: B2111ZZ Fluoroscopy of Multiple Coronary Arteries using Low Osmolar Contrast (ICD-10-PCS; 2023-01-08)
PROC: 4A023N7 Measurement of Cardiac Sampling and Pressure, Left Heart, Percutaneous Approach (ICD-10-PCS; principal; 2023-01-08 18:15)
PROC: 3E03317 Introduction of Other Thrombolytic into Peripheral Vein, Percutaneous Approach (ICD-10-PCS; 2023-01-11)
PROC: B41D1ZZ Fluoroscopy of Aorta and Bilateral Lower Extremity Arteries using Low Osmolar Contrast (ICD-10-PCS; 2023-01-11 13:00)
DX: I70.323 Atherosclerosis of unspecified type of bypass graft(s) of the extremities with rest pain, bilateral legs (principal); G93.41 Metabolic encephalopathy; I74.3 Embolism and thrombosis of arteries of the lower extremities; N17.9 Acute kidney failure, unspecified; I74.09 Other arterial embolism and thrombosis of abdominal aorta; I82.412 Acute embolism and thrombosis of left femoral vein; F03.90 Unspecified dementia, unspecified severity, without behavioral disturbance, psychotic disturbance, mood disturbance, and anxiety; I10 Essential (primary) hypertension; S99.921A Unspecified injury of right foot, initial encounter; E78.5 Hyperlipidemia, unspecified; D72.828 Other elevated white blood cell count; I25.10 Atherosclerotic heart disease of native coronary artery without angina pectoris; F17.210 Nicotine dependence, cigarettes, uncomplicated; D64.9 Anemia, unspecified; T79.6XXA Traumatic ischemia of muscle, initial encounter; I49.9 Cardiac arrhythmia, unspecified; I48.0 Paroxysmal atrial fibrillation; R74.01 Elevation of levels of liver transaminase levels; E53.8 Deficiency of other specified B group vitamins; F10.11 Alcohol abuse, in remission; M50.30 Other cervical disc degeneration, unspecified cervical region; W18.11XA Fall from or off toilet without subsequent striking against object, initial encounter; Y92.002 Bathroom of unspecified non-institutional (private) residence as the place of occurrence of the external cause; Z88.5 Allergy status to narcotic agent; Z28.310 Unvaccinated for COVID-19; Z85.028 Personal history of other malignant neoplasm of stomach; Z79.899 Other long term (current) drug therapy; Z79.01 Long term (current) use of anticoagulants
CPT/HCPCS: 36200; 36415; 70450; 71045; 71275; 72125; 73502; 75625; 75635; 75716; 76705; 80048; 80053; 80074; 81001; 82140; 82550; 82607; 82746; 83605; 83735; 84100; 84443; 84484; 85025; 85027; 85610; 85730; 87324; 93005; 93306; 93454; 93880; 93923; 95816; 99291

== ENCOUNTER 2023-10-02 17:18 | Emergency (ER) | payer MEDICARE, OTHER ==
[2023-10-02 17:24] LABS: Glucose,Whole Blood 178 mg/dL (70-110)
[2023-10-02 17:34] VITALS: TEMP 96.8
--- NOTE | 2023-10-02 17:36 | ED ---
Neuro HPI - General Chief Complaint: Neuro Symptoms/Deficit Stated Complaint: AMS Time Seen by Provider: 10/02/23 17:33 Source: EMS, RN notes reviewed, old records reviewed, Caregiver Mode of arrival: EMS Limitations: altered mental status, physical limitation - History of Present Illness Is the patient presenting with stroke symptoms?: No -: unknown Initial Comments: This is a patient of unknown onset comatose hypertensive emergency. Patient is 83 years old who went for a walk today and after the walk was unresponsive. Patient remains unresponsive here in the emergency department with decerebrate posturing patient's presentation today is for severely altered mental status Location: altered Severity: severe Improves With: none Worsens With: none Context: sudden onset Associated Symptoms: confusion Treatments Prior to Arrival: none - Related Data Home Medications: Home Medications Medication Instructions Recorded Confirmed Acetaminophen Tab [Tylenol] 500 mg PO Q6H PRN 01/08/23 01/08/23 lisinopriL 40 mg PO DAILY 01/08/23 01/08/23 Previous Rx's Medication Instructions Recorded Amiodarone [Cordarone] 400 mg PO BID #120 tab 01/16/23 Apixaban [Eliquis Starter Pack 5 - 10 mg PO DIRECTED 30 Days 01/16/23 (for VTE)] #1 each Aspirin 81 mg PO DAILY #30 tab 01/16/23 Atorvastatin [Lipitor] 40 mg PO HS #30 tab 01/16/23 Folic Acid 1 mg PO DAILY #30 tab 01/16/23 Metoprolol Tartrate [Lopressor] 25 mg PO BID #60 tab 01/16/23 amLODIPine [Norvasc] 10 mg PO DAILY #30 tab 01/16/23 Allergies/Adverse Reactions: Allergies Allergy/AdvReac Type Severity Reaction Status Date / Time codeine Allergy Itching Verified 10/02/23 17:34 Review of Systems ROS Statement: Those systems with pertinent positive or pertinent negative responses have been documented in the HPI. ROS Other: All systems not noted in ROS Statement are negative. General Exam - General Exam Comments Initial Comments: GCS3 Patient is Decerebate, unresponsive Limitations: altered mental status, physical limitation General appearance: lethargic, obtunded, in distress, cachectic Head exam: Present: atraumatic, normocephalic, normal inspection Eye exam: Present: normal appearance, PERRL, EOMI. Absent: scleral icterus, conjunctival injection, periorbital swelling ENT exam: Present: normal exam, mucous membranes moist Neck exam: Present: normal inspection. Absent: tenderness, meningismus, lymphadenopathy Respiratory exam: Present: normal lung sounds bilaterally. Absent: respiratory distress, wheezes, rales, rhonchi, stridor Cardiovascular Exam: Present: regular rate, normal rhythm, normal heart sounds. Absent: systolic murmur, diastolic murmur, rubs, gallop, clicks GI/Abdominal exam: Present: soft, normal bowel sounds. Absent: distended, tende rness, guarding, rebound, rigid Extremities exam: Present: normal inspection, full ROM, normal capillary refill. Absent: tenderness, pedal edema, joint swelling, calf tenderness Back exam: Present: normal inspection Neurological exam: Present: alert, oriented X3, CN II-XII intact Psychiatric exam: Present: normal affect, normal mood Skin exam: Present: warm, dry, intact, normal color. Absent: rash Stroke MDM - Lab Data Result diagrams: 10/02/23 17:27 10/02/23 17:27 Lab Results 10/02/23 10/02/23 10/02/23 Range/Units 17:22 17:27 17:27 WBC 12.7 H (3.8-10.6) k/uL RBC 4.53 (3.80-5.40) m/uL Hgb 13.4 (11.4-16.0) gm/dL Hct 42.6 (34.0-46.0) % MCV 94.2 (80.0-100.0) fL MCH 29.6 (25.0-35.0) pg MCHC 31.5 (31.0-37.0) g/dL RDW 12.7 (11.5-15.5) % Plt Count 339 (150-450) k/uL MPV 8.1 Neutrophils % 83 % Lymphocytes % 12 % Monocytes % 4 % Eosinophils % 0 % Basophils % 0 % Neutrophils # 10.5 H (1.3-7.7) k/uL Lymphocytes # 1.6 (1.0-4.8) k/uL Monocytes # 0.4 (0-1.0) k/uL Eosinophils # 0.0 (0-0.7) k/uL Basophils # 0.0 (0-0.2) k/uL PT 10.8 (10.0-12.5) sec INR 1.0 (<1.2) APTT 23.2 (22.0-30.0) sec Sodium (137-145) mmol/L Potassium (3.5-5.1) mmol/L Chloride (98-107) mmol/L Carbon Dioxide (22-30) mmol/L Anion Gap mmol/L BUN (7-17) mg/dL Creatinine (0.52-1.04) mg/dL Est GFR (CKD-EPI)AfAm (>60 ml/min/1.73 sqM) Est GFR (CKD-EPI)NonAf (>60 ml/min/1.73 sqM) Glucose (74-99) mg/dL POC Glucose (mg/dL) 178 H (70-110) mg/dL POC Glu Slotter Operator ID September,zabeth Calcium (8.4-10.2) mg/dL Phosphorus (2.5-4.5) mg/dL Magnesium (1.6-2.3) mg/dL Total Bilirubin (0.2-1.3) mg/dL AST (14-36) U/L ALT (4-34) U/L Alkaline Phosphatase (38-126) U/L Creatine Kinase (30-135) U/L Troponin I (0.000-0.034) ng/mL Total Protein (6.3-8.2) g/dL Albumin (3.5-5.0) g/dL TSH (0.465-4.680) mIU/L Urine Color Urine Appearance (Clear) Urine pH (5.0-8.0) Ur Specific [place] (1.001-1.035) Urine Protein (Negative) Urine Glucose (UA) (Negative) Urine Ketones (Negative) Urine Blood (Negative) Urine Nitrite (Negative) Urine Bilirubin (Negative) Urine Urobilinogen (<2.0) mg/dL Ur Leukocyte Esterase (Negative) Urine RBC (0-5) /hpf Urine WBC (0-5) /hpf Ur Squamous Epith Cells (0-4) /hpf Urine Bacteria (None) /hpf Hyaline Casts (0-2) /lpf Urine Mucus (None) /hpf Urine Yeast (Budding) (None) /hpf Salicylates mg/dL Urine Opiates Screen (NotDetected) Ur Oxycodone Screen (NotDetected) Urine Methadone Screen (NotDetected) Acetaminophen ug/mL Ur Barbiturates Screen (NotDetected) U Tricyclic Antidepress (NotDetected) Ur Phencyclidine Scrn (NotDetected) Ur Amphetamines Screen (NotDetected) U Methamphetamines Scrn (NotDetected) U Benzodiazepines Scrn (NotDetected) Urine Cocaine Screen (NotDetected) U Marijuana (THC) Screen (NotDetected) Serum Alcohol mg/dL 10/02/23 10/02/23 10/02/23 Range/Units 17:27 17:27 17:56 WBC (3.8-10.6) k/uL RBC (3.80-5.40) m/uL Hgb (11.4-16.0) gm/dL Hct (34.0-46.0) % MCV (80.0-100.0) fL MCH (25.0-35.0) pg MCHC (31.0-37.0) g/dL RDW (11.5-15.5) % Plt Count (150-450) k/uL MPV Neutrophils % % Lymphocytes % % Monocytes % % Eosinophils % % Basophils % % Neutrophils # (1.3-7.7) k/uL Lymphocytes # (1.0-4.8) k/uL Monocytes # (0-1.0) k/uL Eosinophils # (0-0.7) k/uL Basophils # (0-0.2) k/uL PT (10.0-12.5) sec INR (<1.2) APTT (22.0-30.0) sec Sodium 133 L (137-145) mmol/L Potassium 4.5 (3.5-5.1) mmol/L Chloride 100 (98-107) mmol/L Carbon Dioxide 17 L (22-30) mmol/L Anion Gap 16 mmol/L BUN 22 H (7-17) mg/dL Creatinine 0.57 (0.52-1.04) mg/dL Est GFR (CKD-EPI)AfAm >90 (>60 ml/min/1.73 sqM) Est GFR (CKD-EPI)NonAf 85 (>60 ml/min/1.73 sqM) Glucose 180 H (74-99) mg/dL POC Glucose (mg/dL) (70-110) mg/dL POC Glu Slotter Operator ID Calcium 9.7 (8.4-10.2) mg/dL Phosphorus (2.5-4.5) mg/dL Magnesium (1.6-2.3) mg/dL Total Bilirubin 1.1 (0.2-1.3) mg/dL AST 23 (14-36) U/L ALT 13 (4-34) U/L Alkaline Phosphatase 129 H (38-126) U/L Creatine Kinase 34 (30-135) U/L Troponin I <0.012 (0.000-0.034) ng/mL Total Protein 7.2 (6.3-8.2) g/dL Albumin 4.6 (3.5-5.0) g/dL TSH (0.465-4.680) mIU/L Urine Color Colorless Urine Appearance Clear (Clear) Urine pH 6.0 (5.0-8.0) Ur Specific [place] 1.025 (1.001-1.035) Urine Protein 2+ H (Negative) Urine Glucose (UA) 2+ H (Negative) Urine Ketones 2+ H (Negative) Urine Blood Negative (Negative) Urine Nitrite Negative (Negative) Urine Bilirubin Negative (Negative) Urine Urobilinogen <2.0 (<2.0) mg/dL Ur Leukocyte Esterase Negative (Negative) Urine RBC <1 (0-5) /hpf Urine WBC 1 (0-5) /hpf Ur Squamous Epith Cells 4 (0-4) /hpf Urine Bacteria Rare H (None) /hpf Hyaline Casts 3 H (0-2) /lpf Urine Mucus Occasional H (None) /hpf Urine Yeast (Budding) Rare H (None) /hpf Salicylates mg/dL Urine Opiates Screen (NotDetected) Ur Oxycodone Screen (NotDetected) Urine Methadone Screen (NotDetected) Acetaminophen ug/mL Ur Barbiturates Screen (NotDetected) U Tricyclic Antidepress (NotDetected) Ur Phencyclidine Scrn (NotDetected) Ur Amphetamines Screen (NotDetected) U Methamphetamines Scrn (NotDetected) U Benzodiazepines Scrn (NotDetected) Urine Cocaine Screen (NotDetected) U Marijuana (THC) Screen (NotDetected) Serum Alcohol mg/dL 10/02/23 10/02/23 Range/Units 18:21 19:12 WBC (3.8-10.6) k/uL RBC (3.80-5.40) m/uL Hgb (11.4-16.0) gm/dL Hct (34.0-46.0) % MCV (80.0-100.0) fL MCH (25.0-35.0) pg MCHC (31.0-37.0) g/dL RDW (11.5-15.5) % Plt Count (150-450) k/uL MPV Neutrophils % % Lymphocytes % % Monocytes % % Eosinophils % % Basophils % % Neutrophils # (1.3-7.7) k/uL Lymphocytes # (1.0-4.8) k/uL Monocytes # (0-1.0) k/uL Eosinophils # (0-0.7) k/uL Basophils # (0-0.2) k/uL PT (10.0-12.5) sec INR (<1.2) APTT (22.0-30.0) sec Sodium (137-145) mmol/L Potassium (3.5-5.1) mmol/L Chloride (98-107) mmol/L Carbon Dioxide (22-30) mmol/L Anion Gap mmol/L BUN (7-17) mg/dL Creatinine (0.52-1.04) mg/dL Est GFR (CKD-EPI)AfAm (>60 ml/min/1.73 sqM) Est GFR (CKD-EPI)NonAf (>60 ml/min/1.73 sqM) Glucose (74-99) mg/dL POC Glucose (mg/dL) (70-110) mg/dL POC Glu Slotter Operator ID Calcium (8.4-10.2) mg/dL Phosphorus 3.4 (2.5-4.5) mg/dL Magnesium 1.6 (1.6-2.3) mg/dL Total Bilirubin (0.2-1.3) mg/dL AST (14-36) U/L ALT (4-34) U/L Alkaline Phosphatase (38-126) U/L Creatine Kinase (30-135) U/L Troponin I (0.000-0.034) ng/mL Total Protein (6.3-8.2) g/dL Albumin (3.5-5.0) g/dL TSH 1.370 (0.465-4.680) mIU/L Urine Color Urine Appearance (Clear) Urine pH (5.0-8.0) Ur Specific [place] (1.001-1.035) Urine Protein (Negative) Urine Glucose (UA) (Negative) Urine Ketones (Negative) Urine Blood (Negative) Urine Nitrite (Negative) Urine Bilirubin (Negative) Urine Urobilinogen (<2.0) mg/dL Ur Leukocyte Esterase (Negative) Urine RBC (0-5) /hpf Urine WBC (0-5) /hpf Ur Squamous Epith Cells (0-4) /hpf Urine Bacteria (None) /hpf Hyaline Casts (0-2) /lpf Urine Mucus (None) /hpf Urine Yeast (Budding) (None) /hpf Salicylates <1.0 mg/dL Urine Opiates Screen Not Detected (NotDetected) Ur Oxycodone Screen Not Detected (NotDetected) Urine Methadone Screen Not Detected (NotDetected) Acetaminophen <10.0 ug/mL Ur Barbiturates Screen Not Detected (NotDetected) U Tricyclic Antidepress Not Detected (NotDetected) Ur Phencyclidine Scrn Not Detected (NotDetected) Ur Amphetamines Screen Not Detected (NotDetected) U Methamphetamines Scrn Not Detected (NotDetected) U Benzodiazepines Scrn Not Detected (NotDetected) Urine Cocaine Screen Not Detected (NotDetected) U Marijuana (THC) Screen Not Detected (NotDetected) Serum Alcohol <10 mg/dL - NIH Stroke Scale 1a. Level of Consciousness: (3) responds reflex/autonomic 1b. LOC Questions: (2) answers no questions correctly 1c. LOC Commands: (2) performs no tasks correctly 2. Best Gaze: (2) forced deviation 3. Visual: (3) bilateral hemianopia 4. Facial Palsy: (3) complete paralysis 5a. Motor Arm Left: (4) no movement 5b. Motor Arm Right: (4) no movement 6a. Motor Leg Left: (4) no movement 6b. Motor Leg Right: (4) no movement 7. Limb Ataxia: (un) amputation 8. Sensory: (2) severe/total sensory loss 9. Best Language: (un) mute/global aphasia 10. Dysarthria: (un) intubated/barrier 11. Extinction/Inattention: (2) profound inattention - Medical Decision Making 83 female to ER for evaluation of altered mental status presents in decerebrate posturing. Altered mental status. Elevated blood pressure. Patient did have grave prognosis, with no resuscitate secondary to neurological status and age, patient - Radiology Data Radiology results: report reviewed (CT brain CTA head neck chest x-ray is negative for acute disease), image reviewed - EKG Data -: EKG Interpreted by Me (EKG is sinus rhythm sinus arrhythmia rate 86 MT 207 QRS 114 QTc 443) Past Medical History Past Medical History: Cancer, Dementia, Hypertension Additional Past Medical History / Comment(s): Per pt son pt had stomach cancer over 20 years ago and has had extensive vascular surgery done at [facility] in [place]. History of Any Multi-Drug Resistant Organisms: Unobtainable Past Surgical History: No Surgical Hx Reported Additional Past Surgical History / Comment(s): Bi-lateral pelvic by-pass grafts. Past Psychological History: No Psychological Hx Reported, Unable to Obtain Smoking Status: Current every day smoker Course Vital Signs 10/02/23 10/02/23 10/02/23 17:30 18:10 18:31 Temperature 96.8 F L Pulse Rate 76 66 Respiratory 20 13 Rate Blood Pressure 147/92 176/75 238/98 O2 Sat by Pulse 94 L 100 Oximetry 10/02/23 10/02/23 10/02/23 18:34 19:10 19:20 Temperature Pulse Rate 73 75 Respiratory 22 16 Rate Blood Pressure 236/112 217/110 221/87 O2 Sat by Pulse 100 100 Oximetry - Reevaluation(s) Reevaluation #1: 10/02/23 20:10 Medical records reviewed Reevaluation #2: 10/02/23 20:10 Patient has decerebrate posturing throughout entire emergency department stay with severely increasing blood pressure hypertensive emergency suspecting b rainstem CVA or acute cerebral anoxia, patient continues to deteriorate here in the emergency department Patient never has any neurological activity Reevaluation #3: 10/02/23 20:11 Friend and members at bedside was informed of patient's significant prognosis and grave condition Reevaluation #4: Was pt. sent in by a medical professional or institution (Dr., PA, [employer], urgent care, hospital, or custodial...) When possible be specific @ -no Did you speak to anyone other than the patient for history (EMS, parent, family, police, friend...)? What history was obtained from this source @ -no Did you review nursing and triage notes (agree or disagree)? Why? @ -agree Are old charts reviewed (outside hosp., previous admission, EMS record, old EKG, old radiological studies, urgent care reports/EKG's, custodial records)? Report findings @ -yes Differential Diagnosis (chest pain, altered mental status, abdominal pain women, abdominal pain men, vaginal bleeding, weakness, fever, dyspnea, syncope, headache, dizziness, GI bleed, back pain, seizure, CVA, palpatations, mental health, musculoskeletal)? @ -prior EKG interpreted by me (3pts min.). @ -yes X-rays interpreted by me (1pt min.). @ -yes negative for acute disease CT interpreted by me (1pt min.). @ -Yes negative for acute disease U/S interpreted by me (1pt. min.). @ -no What testing was considered but not performed or refused? (CT, X-rays, U/S, labs)? Why? @ -none What meds were considered but not given or refused? Why? @ -none Did you discuss the management of the patient with other professionals (professionals i.e. EDUARD Blake, [employer], lab, RT, psych nurse, nephrology social worker, waste examiner, teacher, zoology technical officer, case checker)? Give summary @ -no Was smoking cessation discussed for >3mins.? @ -no Was critical care preformed (if so, how long)? @ -65 Were there social determinants of health that impacted care today? How? (Homelessness, low income, unemployed, alcoholism, drug addiction, transportation, low edu. Level, literacy, decrease access to med. care, long-term, rehab)? @ -none Was there de-escalation of care discussed even if they declined (Discuss DNR or withdrawal of care, Hospice)? DNR status @ -no What co-morbidities impacted this encounter? (DM, HTN, Smoking, COPD, CAD, Cancer, CVA, ARF, Chemo, Hep., AIDS, mental health diagnosis, sleep apnea, morbid obesity)? @ -none Was patient admitted / discharged? Hospital course, mention meds given and route, prescriptions, significant lab abnormalities, going to OR and other pertinent info. @ - 83 female to ER for evaluation of altered mental status presents in decerebrate posturing. Altered mental status. Elevated blood pressure. Patient did have grave prognosis, with no resuscitate secondary to neurological status and age, patient Cardiac arrest here in the emergency department Undiagnosed new problem with uncertain prognosis? @ -no Drug Therapy requiring intensive monitoring for toxicity (Heparin, Nitro, Insulin, Cardizem)? @ -no Were any procedures done? @ -no Diagnosis/symptom? @ -Cardiopulmonary arrest Acute, or Chronic, or Acute on Chronic? @ -Acute Uncomplicated (without systemic symptoms) or Complicated (systemic symptoms)? @ -Complicated Side effects of treatment? @ -no Exacerbation, Progression, or Severe Exacerbation? @ -exacerbation Poses a threat to life or bodily function? How? (Chest pain, USA, ME, pneumonia, PE, COPD, DKA, ARF, appy, cholecystitis, CVA, Diverticulitis, Homicidal, Suicidal, threat to staff... and all critical care pts) @ -yes expiration Reevaluation #5: Differential Altered Mental Status: Hypoglycemia, DKA, hypercapnia, ETOH, overdose, CO poisoning, trauma, myxedema coma, HTN encephalopathy, infection, encephalitis, psychosis, intercranial hemorrhage, hepatic encephalopathy, meningitis, CVA, this is not meant to be an all-inclusive list Critical Care Time Critical Care Time: Yes Total Critical Care Time: 65 Disposition Clinical Impression: Cardiopulmonary arrest, Hypertensive emergency Disposition: Condition: Critical Is patient prescribed a controlled substance at d/c from ED?: No Referrals: None,Stated [Primary Care Provider] - 1-2 days Preliminary Cause of : CPA
[2023-10-02] MEDS: LABETALOL 5 MG/ML VIAL MDV IVP STA ×2 (17:55→18:33)
[2023-10-02] MEDS: SODIUM CHLORIDE 0.9% 1,000 ML IV STA ×2 (17:57→18:38)
[2023-10-02] MEDS: DIPH,PERTUS(ACELL)TETVAC-LF 0.5 ML VIAL IM ONE (18:01)
[2023-10-02] MEDS: LORazepam 2 MG/ML INJ IV STA (18:02)
[2023-10-02 18:06] LABS: Basophils % (A) 0 %; Eosinophils % (A) 0 %; HCT 42.6 % (34.0-46.0); HGB 13.4 gm/dL (11.4-16.0); Lymphocytes # (A) 1.6 k/uL (1.0-4.8); Lymphocytes % (A) 12 %; MCH 29.6 pg (25.0-35.0); MCHC 31.5 g/dL (31.0-37.0); MCV 94.2 fL (80.0-100.0); Mean Platelet Volume 8.1; Monocytes # (A) 0.4 k/uL (0-1.0); Monocytes % (A) 4 %; Neutrophils # (A) 10.5 k/uL (1.3-7.7); Neutrophils % (A) 83 %; Platelet Count 339 k/uL (150-450); RBC 4.53 m/uL (3.80-5.40); RDW 12.7 % (11.5-15.5); WBC 12.7 k/uL (3.8-10.6)
[2023-10-02 18:07] LABS: Partial Thromboplastin Time 23.2 sec (22.0-30.0); Prothrombin Time 10.8 sec (10.0-12.5)
[2023-10-02 18:11] LABS: ALT 13 U/L (4-34); AST 23 U/L (14-36); African American GFR (CKD) >90 (>60 ml/min/1.73 sqM); Albumin 4.6 g/dL (3.5-5.0); Alkaline Phosphatase 129 U/L (38-126); Anion Gap 16 mmol/L; Blood Urea Nitrogen 22 mg/dL (7-17); Calcium 9.7 mg/dL (8.4-10.2); Carbon Dioxide 17 mmol/L (22-30); Chloride 100 mmol/L (98-107); Creatine Kinase 34 U/L (30-135); Glucose 180 mg/dL (74-99); Non-African American GFR(CKD) 85 (>60 ml/min/1.73 sqM); Potassium 4.5 mmol/L (3.5-5.1); Sodium 133 mmol/L (137-145); Total Bilirubin 1.1 mg/dL (0.2-1.3); Total Protein 7.2 g/dL (6.3-8.2)
--- NOTE | 2023-10-02 18:28 | CT ---
Head CT without contrast. HISTORY: Stroke. COMPARISON: 01/08/2023. TECHNIQUE: Multiple axial images are obtained from the skull base to vertex without use of IV contras t material. FINDINGS: The ventricles, basal cisterns and sulci over convexities are moderately enlarged consistent with mod erate generalized atrophy. There is moderate decreased density in the periventricular white matter consistent with chronic ische laya white matter demyelination. There is a tiny calcification in the right basal ganglia. There is no mass effect or shift in midline structures. There is no acute intra or extra-axial hemorrhage. The posterior fossa including the brainstem, fourth ventricle and cerebellar pontine angles appear gr ossly normal. The intraorbital contents appear normal with symmetric. The visualized paranasal sinuses and mastoid air cells are well aerated. IMPRESSION: 1. No acute bleed or mass effect. 2. Moderate generalized atrophy and chronic ischemic white matter demyelination
[2023-10-02] MEDS: CLEVIDIPINE BUTYRATE 25 MG in EMPTY BAG 1 BAG IV SCH (18:51)
--- NOTE | 2023-10-02 19:11 | XR ---
EXAMINATION TYPE: XR chest 1V portable DATE OF EXAM: 10/02/2023 COMPARISON: 01/08/2023 HISTORY: Altered mental status TECHNIQUE: Single frontal view of the chest is obtained. FINDINGS: There is no focal air space opacity, pleural effusion, or pneumothorax seen. The cardiac silhouette size is within normal limits. The osseous structures are intact. IMPRESSION: No acute process.
[2023-10-02 19:15] LABS: Acetaminophen <10.0 ug/mL; Alcohol <10 mg/dL; Magnesium 1.6 mg/dL (1.6-2.3); Phosphorus 3.4 mg/dL (2.5-4.5); Salicylate <1.0 mg/dL
[2023-10-02 19:20] LABS: Appearance,Urine Clear (Clear); Bacteria,Urine Rare /hpf; Bilirubin,Urine Negative (Negative); Blood,Urine Negative (Negative); Budding Yeast,Urine Rare /hpf; Color,Urine Colorless; Glucose,Urine (UA) 2+ (Negative); Hyaline Casts,Urine 3 /lpf (0-2); Leukocyte Esterase,Urine Negative (Negative); Mucus,Urine Occasional /hpf; Nitrite,Urine Negative (Negative); Protein,Urine 2+ (Negative); RBC,Urine <1 /hpf (0-5); Specific Gravity,Urine 1.025 (1.001-1.035); Squamous Epithelial Cell,Urine 4 /hpf (0-4); Urobilinogen,Urine <2.0 mg/dL (<2.0); WBC,Urine 1 /hpf (0-5)
[2023-10-02 19:27] VITALS: BP 221/87; PULSE 75; RESP 16
[2023-10-02 20:01] LABS: Amphetamine Screen,Urine Not Detected (NotDetected); Barbiturate Screen,Urine Not Detected (NotDetected); Benzodiazepines Screen,Urine Not Detected (NotDetected); Cocaine Screen,Urine Not Detected (NotDetected); Methadone Screen, Urine Not Detected (NotDetected); Opiate Screen,Urine Not Detected (NotDetected); Oxycodone Screen, Urine Not Detected (NotDetected); Phencyclidine Screen,Urine Not Detected (NotDetected); Tricyclic Antidepressant,Urine Not Detected (NotDetected); Urn Cannabinoid Scrn Not Detected (NotDetected)
[2023-10-02 20:05] LABS: Ketones,Urine 2+ (Negative)
--- NOTE | 2023-10-02 22:02 | CT ---
EXAMINATION TYPE: CT angio head neck DATE OF EXAM: 10/02/2023 HISTORY: AMS COMPARISON: None CT DLP: 306.7 mGycm. Automated Exposure Control for Dose Reduction was Utilized. TECHNIQUE: CTA scan of the head and neck is performed without and with IV Contrast, patient injected with 65 mL of Isovue 370, axial images are obtained, coronal and sagittal reformatted images are rev iewed. 3D reconstructed images are created on an independent workstation and reviewed. FINDINGS: The brachiocephalic origins are widely patent and no significant stenosis. There is mild to moderate calcified plaque of the carotid bifurcations but there is no significant st enosis of the common or internal carotid arteries within the neck. 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 Intracranially, there is no stenosis, segmental occlusion, sizable aneurysm sac or vascular malformat ion. IMPRESSION:. 1. Calcified plaque in the carotid bifurcations but no significant stenosis within the neck or intrac ranially. 2. 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 NASCET criteria was used in interpretation of this exam?
== END 2023-10-03 00:44 | disposition expired ==
LOC: EC 17:18
DX: I46.9 Cardiac arrest, cause unspecified (principal); I16.1 Hypertensive emergency; I65.23 Occlusion and stenosis of bilateral carotid arteries; F17.200 Nicotine dependence, unspecified, uncomplicated; Z88.5 Allergy status to narcotic agent
CPT/HCPCS: 36415; 92950; 93005; 80053; 82550; 83735; 84100; 84443; 84484; 85025; 85610; 85730; 81001; 80306; 80143; 80179; 71045; 70496; 70450; 70498; 99291; 96365; 96375 ×2; 96376; 96361 ×2; G0480; J2060; C9248; Q9967; J1920; 80320